=== PATIENT | female | born 1950 | race Caucasian/White ===

== ENCOUNTER 2017-04-29 10:39 | Emergency (ER) | payer MEDICARE, SELFPAY ==
[2017-04-29 10:41] VITALS: BP 155/86; PULSE 102; RESP 16; TEMP 36.6; O2SAT 98; BMI 35.4
--- NOTE | 2017-04-29 11:13 | RAD_ITS ---
STUDY: X-RAY CHEST REASON FOR EXAM: Female, 67 years old. Cough. Mental status change. TECHNIQUE: Single AP portable view of the chest. COMPARISON: Comparison is made with prior study dated August 19, 2015. FINDINGS: The lungs are clear and expanded. Scattered calcified granulomas. There is no demonstrated pleural abnormality. Normal size heart. Normal mediastinum and jay. Normal visualized pulmonary arteries. Normal visualized aortic arch and descending thoracic aorta. Normal visualized thoracic spine. Normal visualized ribs, clavicles, and shoulders. There is no demonstrated abnormality of the visualized soft tissue structures of the upper abdomen. RAD/Chest 1 View (Portable) IMPRESSION: Normal x-ray examination of the chest. Electronically Signed: Tomasz Johnson MD at 12:04 EST Tel [phone], Service support ,
--- NOTE | 2017-04-29 11:16 | CT_ITS ---
STUDY: CT BRAIN WITHOUT CONTRAST REASON FOR EXAM: Female, 67 years old. Hallucinations. RADIATION DOSAGE (If Supplied By Facility): CTDIvol = ( 44.99 ) mGy, DLP = ( 796.11 ) mGycm TECHNIQUE: Transaxial CT imaging of the brain was performed without administration of intravenous contrast material. Individualized dose optimization techniques were used for this CT. COMPARISON: Comparison is made with prior study dated August 19, 2015. FINDINGS: Normal soft tissue structures. Normal calvarium. There is mild cerebral atrophy with widening of the extra-axial spaces and ventricular dilatation. There are areas of decreased attenuation within the white matter tracts of the supratentorial brain, consistent with microvascular disease changes. Normal basal ganglia and thalami. Normal brainstem. There is mild cerebellar atrophy. There is no intracranial hemorrhage. There are no findings of an acute ischemic infarction. Opacification of the left anterior sphenoid sinus. CT/Brain/Head without Contrast IMPRESSION: Chronic involutional changes of the brain. Electronically Signed: Tomasz Johnson MD at 13:32 EST Tel [phone], Service support ,
--- NOTE | 2017-04-29 11:16 | EKG12_ITS ---
Test Reason : GENERALILLNESS Blood Pressure : / mmHG Vent. Rate : 096 BPM Atrial Rate : 096 BPM P-R Int : 206 ms QRS Dur : 076 ms QT Int : 340 ms P-R-T Axes : 033 012 041 degrees QTc Int : 429 ms Normal sinus rhythm Normal ECG Confirmed by PATRICE MALDONADO, [place] ([id number]), continuity editor REGAN COLEMAN ([id number]) on 05/02/2017 11:24:07 AM Referred By: SEAMUS Confirmed By:[place] IBRAHIM MD
[2017-04-29 11:57] LABS: Absolute Lymphocyte Count 1.63 X10^3/ul (0.83-4.51); Absolute Neutrophil Count 3.4 X10^3/uL (2.0-7.7); Basophil# 0.04 X10^3/uL; Basophil% 0.7 % (0-1); Eosinophil# 0.15 X10^3/uL; Eosinophils% 2.7 % (0-5); Hematocrit 41.2 % (37-47); Hemoglobin 14.3 g/dl (12.0-15.0); Lymphocyte # 1.63 X10^3/ul (4.0); Lymphocyte % 29.4 % (19-41); Mean Corp Hgb Conc 34.7 g/gl (32-36); Mean Corpuscular Hgb 30.6 pg (27.0-32.0); Mean Corpuscular Volume 88.2 fL (81-99); Mean Platelet Vol. 9.1 fl (6.2-12.0); Monocyte# 0.34 X10^3/uL; Monocyte% 6.1 % (0-10); Neutrophil # 3.38 X10^3/uL (2.7-7.7); Neutrophil % 60.9 % (47-70); POSITIVE COUNT NO; POSITIVE DIFFERENTIAL NO; POSITIVE MORPHOLOGY NO; Platelet Count 161 K/mm3 (150-450); RBC Distribution Width CV 13.1 % (11.6-14.6); RBC Distribution Width SD 41.8 fl (35.1-43.9); Red Blood Count 4.67 M/mm3 (4.2-5.4); White Blood Count 5.6 K/mm3 (4.4-11.0)
--- NOTE | 2017-04-29 11:57 | ED.DCSUM_ITS ---
- ER Visit Summary Date of Service: 04/29/17 Chief Complaint: Delusions and auditory hallucinations History of Present Illness: The patient is a [address] Samayoa and Dr. Johnson. She reports that she has been having auditory hallucinations and family reports that she is also been having visual hallucinations for approximately past 1-2 months. Family use examples of the fact that she had placed the house 6 days ago because she thought her daughter was being held captive upstairs. She sees her son who lives in [place] in the house. Daughter reports that she is also been going to neighbor's house and threatening them because of this she is being evicted. He has had this previously and was admitted to [facility] [place] approximately 1 year ago. She is placed on Seroquel which she does not take. On review of systems patient complains of a cough productive white sputum for the past month. She denies any fever chills, chest pain, shortness of breath. She wrote does report that she has dysuria on and off. Physical Examination: Vitals: Stable. Afebrile. General: Well-nourished and well-developed. Head: Normocephalic atraumatic. Neck: Supple, no lymphadenopathy. No JVD. Nontender. Cardiovascular: Regular rate and rhythm. No murmurs. Respiratory: No respiratory distress. Clear to auscultation bilaterally. Abdominal: Soft, nontender, nondistended, normal bowel sounds. No guarding, rebound, or peritoneal signs. Back: Nontender. Extremities: Nontender, no edema. Skin: Normal color, no rash. Neurologic: Alert and oriented ?3. Cranial nerves II through XII are intact. Normal strength and sensation. Mental status exam: Patient appears their stated age. Good posture and grooming. Good eye contact. Normal rate, volume, and latency of speech. No Anne-Marie or homicidal ideation. Flow of thought is logical. Insight and judgment is poor. Test Results: EEG is sinus at 96 with no acute changes. CBC is normal. Chem-7 is more for glucose of 246 and creatinine 1.04. TSH is 0.56. Alcohol level is negative. Tox screen is negative. UA has 10-25 white blood cells, 5-10 epithelial cells, and rare bacteria. CT brain shows chronic changes. Emergency Department Course and Treatment: She was treated the dose of Macrobid p.o. Her UTI is questionable at best. This is not the source of her auditory and visual hallucinations. She will be seen by the counseling center for consultation. Treatment Plan: I feel the patient requires transfer to a geriatric psych facility. Disposition: Pending Impression: 1. Auditory/visual hallucinations. 2. Delusions. 3. UTI. This note was generated with [employer] dictation software. It may contain incorrect words, spelling, and punctuation that were not noted in review of the chart prior to signing ED Disposition - Plan for ED Patient: Chief Complaint: General Illness Referrals: Jules Samayoa MD [Primary Care Provider] -
[2017-04-29 12:24] LABS: Anion Gap 9 (5-15); BUN 18 mg/dL (7-18); BUN/Creat Ratio 17.3 RATIO (10-20); Calcium,Total 9.2 mg/dL (8.5-10.1); Chloride 103 mmol/L (98-107); Creatinine, Serum 1.04 mg/dL (0.55-1.02); EST Glomerular Filtration Rate 56 mL/min (>60); Est Glom Filt Rate - Afr Amer 68 mL/min (>60); Estimated Creatinine Clearance 43.42 ml/min; Glucose 246 mg/dL (70-110); Potassium 4.2 mmol/L (3.5-5.1); Sodium Level 137 mmol/L (136-145); Thyroid Stim Hormone (TSH) 0.86 uIU/mL (0.358-3.74)
[2017-04-29 12:36] LABS: Mucous, Urine 0 SEEN /hpf (<or=2+); Red Blood Cells-Urine 0 SEEN /hpf (0-5)
[2017-04-29 12:57] LABS: Amphetamine Urine VISTA NEGATIVE (<1000 ng/mL); Barbiturate Urine VISTA NEGATIVE (< 200 ng/mL); Benzodiazepine Urine VISTA NEGATIVE (< 200 ng/mL); Cocaine Urine VISTA NEGATIVE (< 300 ng/mL); Ecstacy Urine VISTA NEGATIVE (< 500 ng/mL); Methadone Urine VISTA NEGATIVE (< 300 ng/mL); PCP Urine VISTA NEGATIVE (< 25 ng/mL); THC Urine VISTA NEGATIVE (< 50 ng/mL); Vista UDS pH Range 5
[2017-04-29 13:04] LABS: Color, Urine Yellow (Yellow); Glucose, Dipstick 250 mg/dl (Normal); Ketone-Dipstick Negative (Negative); Leukocyte Esterase-Dipstick 500 /ul (Negative); Nitrite-Dipstick Negative (Negative); Occult Blood-Urine Negative /ul (Negative); Protein-Dipstick 30 mg/dl (Negative); Specific Gravity, Urine 1.015 (1.002-1.030); Urine Bilirubin Dipstick Negative (Negative); Urine Clarity Clear (Clear); Urine Urobilinogen Normal (Normal)
[2017-04-29 13:10] LABS: Renal Epithelial Cells 0-5 SEEN /hpf (0-5); Squamous Epithelial Cells - UA 5-10 SEEN /hpf (5-10); White Blood Cells 10-25 SEEN /hpf (0-5)
[2017-04-29 13:11] LABS: Bacteria RARE /hpf (None Seen)
[2017-04-29 13:21] LABS: Bedside Glucose 224 mg/dL (70-110)
[2017-04-29 13:22] VITALS: BP 124/78; PULSE 87; RESP 16; O2SAT 97
--- NOTE | 2017-04-29 13:47 | ED.RN ---
CONTACTED [facility] @[id number], THEY WILL SEND OUT A PAGE
[2017-04-29] MEDS: Nitrofurantoin Macrocrystals 100 MG Capsule PO (13:54)
--- NOTE | 2017-04-29 17:39 | ED.RN ---
pt requesting novolog with his meal tonight. home meds requested with Dr. Reddy, orders placed.
[2017-04-29 17:41] LABS: Bedside Glucose 221 mg/dL (70-110)
[2017-04-29 18:34] VITALS: BP 140/78; PULSE 80; RESP 18; O2SAT 98
[2017-04-29] MEDS: Pramipexole Di-HCl 0.5 MG Tablet PO (20:11)
[2017-04-29] MEDS: levETIRAcetam 750 MG Tablet PO (20:11)
[2017-04-29] MEDS: Gabapentin 400 MG Capsule 800 MG PO (20:11)
== END 2017-04-29 22:02 | disposition short-term general hospital (02) ==
PROVIDERS: Emergency Provider Emergency Medicine; Family Provider Internal Medicine; PCP Internal Medicine
DX: F22 Delusional disorders (principal); N39.0 Urinary tract infection, site not specified; E11.9 Type 2 diabetes mellitus without complications; Z79.4 Long term (current) use of insulin; F32.9 Major depressive disorder, single episode, unspecified; G40.909 Epilepsy, unspecified, not intractable, without status epilepticus; Z91.14 Patient's other noncompliance with medication regimen; Z79.899 Other long term (current) drug therapy
CPT/HCPCS: 70450; 71045; 80048; 80307; 80320; 81001; 82962; 84443; 85025; 93005; 99281; A4216; G0480

== ENCOUNTER 2017-05-13 13:37 | Emergency (ER) | payer MEDICARE, SELFPAY ==
[2017-05-13 13:37] VITALS: BP 159/97; PULSE 110; RESP 16; TEMP 36.4; O2SAT 98; BMI 37.8
--- NOTE | 2017-05-13 13:47 | CT_ITS ---
STUDY: CT CERVICAL SPINE WITHOUT CONTRAST REASON FOR EXAM: Female, 67 years old. Head injury following a fall. RADIATION DOSAGE (If Supplied By Facility): CTDIvol = ( 35.58 ) mGy, DLP = ( 668.51 ) mGycm TECHNIQUE: High resolution transaxial imaging was performed without contrast material. Sagittal and coronal images were reconstructed. Individualized dose optimization techniques were used for this CT. COMPARISON: None FINDINGS: Normal craniovertebral junction. Normal anterior atlantoaxial articulation. Normal odontoid process. Normal cervical lordosis. Normal vertebral bodies and posterior osseous elements. C2-3: Normal endplates. Normal disc height and morphology. Normal central canal and intervertebral neuroforamina. C3-4: Mild anterior spondylosis. C4-5: Mild degree of disc space narrowing and anterior spondylosis. C5-6: Mild degree of disc space narrowing and anterior spondylosis. C6-7: Normal endplates. Normal disc height and morphology. Normal central canal and intervertebral neuroforamina. C7-T1: Normal endplates. Normal disc height and morphology. Normal central canal and intervertebral neuroforamina. Normal visualized soft tissue structures. CT/Spine Cervical without Contras IMPRESSION: Multilevel degenerative changes, as described above. Electronically Signed: Tomasz Johnson MD at 14:45 EST Tel [phone], Service support ,
--- NOTE | 2017-05-13 13:47 | CT_ITS ---
STUDY: CT BRAIN WITHOUT CONTRAST REASON FOR EXAM: Female, 67 years old. An injury following a fall. RADIATION DOSAGE (If Supplied By Facility): CTDIvol = ( 44.99 ) mGy, DLP = ( 745.49 ) mGycm TECHNIQUE: Transaxial CT imaging of the brain was performed without administration of intravenous contrast material. Individualized dose optimization techniques were used for this CT. COMPARISON: Comparison is made with prior examination dated April 29, 2017. FINDINGS: Normal soft tissue structures. Normal calvarium. There is mild cerebral atrophy with widening of the extra-axial spaces and ventricular dilatation. There are areas of decreased attenuation within the white matter tracts of the supratentorial brain, consistent with microvascular disease changes. Normal basal ganglia and thalami. Normal brainstem. Normal cerebellum. There is no intracranial hemorrhage. There are no findings of an acute ischemic infarction. Partial opacification of the left sphenoid sinus. CT/Brain/Head without Contrast IMPRESSION: Chronic involutional changes of the brain. Electronically Signed: Tomasz Johnson MD at 14:46 EST Tel [phone], Service support ,
--- NOTE | 2017-05-13 13:51 | ED.DCSUM_ITS ---
- ER Visit Summary Date of Service: 05/13/17 Chief Complaint: Fall History of Present Illness: The patient is a 67 F who presents after a fall. She slipped on the ice today. She did hit her head. She can planes of right- sided neck pain as well as head pain. No LOC. She has pain in the bilateral legs, which she states is more of restless legs. Physical Examination: Vital signs reviewed. HEENT exam unremarkable. His right -sided cervical tenderness to palpation. Heart is regular rate and rhythm without murmurs. Lungs are clear to auscultation. Abdomen is soft and nontender. Extremities reveal no edema. Both of her legs are tender diffusely. No signs of trauma or ecchymosis. Skin exam normal. Neurologic exam normal. Test Results: Cervical spine CAT scan and CT scan of the head revealed no acute findings. Emergency Department Course and Treatment: Patient has a cervical strain from the fall. No evidence of any head injury. She will take Tylenol and ice at home. She will follow-up with her primary care physician Treatment Plan: [] Disposition: Discharge Impression: Closed head injury, cervical strain This note was generated with [employer] dictation software. It may contain incorrect words, spelling, and punctuation that were not noted in review of the chart prior to signing ED Disposition - Plan for ED Patient: Chief Complaint: Fall Referrals: Jules Samayoa MD [Primary Care Provider] -
--- NOTE | 2017-05-13 14:52 | ED.DEP ---
ED Disposition - Plan for ED Patient: Disposition: Home or Assisted Living Chief Complaint: Fall Instructions: ED Mechanical Fall Referrals: Jules Samayoa MD [Primary Care Provider] -
[2017-05-13 14:57] VITALS: BP 145/70; PULSE 98; RESP 14; O2SAT 98
== END 2017-05-13 15:01 | disposition home or self-care (01) ==
PROVIDERS: Emergency Provider Emergency Medicine; Family Provider Internal Medicine; PCP Internal Medicine
DX: S09.90XA Unspecified injury of head, initial encounter (principal); S16.1XXA Strain of muscle, fascia and tendon at neck level, initial encounter; W00.0XXA Fall on same level due to ice and snow, initial encounter; Y93.9 Activity, unspecified; Y92.9 Unspecified place or not applicable; G40.909 Epilepsy, unspecified, not intractable, without status epilepticus; Z79.899 Other long term (current) drug therapy
CPT/HCPCS: 70450; 72125; 99282

== ENCOUNTER 2017-05-22 12:06 | Inpatient (IN) | payer MEDICARE, SELFPAY ==
[2017-05-22] VITALS (8 sets, daily range): BP systolic 87–109; BP diastolic 43–70; PULSE 90–108; RESP 16–18; TEMP 36–37.2; O2SAT 95–98; BMI 40.0; BMI 45.9
--- NOTE | 2017-05-22 12:17 | ED.RN ---
pt having visual hallucinations regarding family sitting in room currently telling lies. only people present in room are this rn and pt
--- NOTE | 2017-05-22 12:32 | RAD_ITS ---
STUDY: X-RAY - LEFT ANKLE REASON FOR EXAM: Pain, fall. TECHNIQUE: 2 view(s) of the ankle. COMPARISON: None. FINDINGS: There is an angulated fracture of the distal fibular diaphysis and a fracture of the medial malleolus. There is anterior and lateral dislocation of the tibiotalar articulation. Normal visualized talus. There is a plantar calcaneal enthesophyte. The visualized subtalar, talonavicular, calcaneocuboid and tarsal articulations are normal. The soft tissue structures are unremarkable. RAD/Ankle 2 Views IMPRESSION: Left ankle fracture/dislocation. Electronically Signed: Amol Aviles MD at 13:16 EST Tel , Service support ,
--- NOTE | 2017-05-22 12:33 | ED.VISSUMM ---
- ER Visit Summary Date of Service: 05/22/17 Chief Complaint: Fall with left ankle pain and deformity History of Present Illness: The patient is a 67 F history of insulin-dependent diabetes and seizure disorder. Patient states there was someone ringing her doorbell she went to get it tripped or slipped and fell injuring her left ankle. She was brought in by squad. There is a air splint on her left ankle with a deformity. She denies other injuries. She was not knocked out. She denies being on blood thinners. She does not believe she is ever had surgery on her left ankle before. She denies any left hip or left knee pain. Physical Examination: Older female no acute distress. Vital signs are stable afebrile. HEENT exam pupils round reactive light. No signs of trauma to her scalp or face. No hematomas. C-spine nontender. Normal range of motion to her neck. No lymphadenopathy. Lungs clear to auscultation bilaterally. Heart regular rhythm rate about 110 no murmur. Chest wall nontender. Abdomen soft nontender. No peritoneal signs. Normal bowel sounds. Pelvic girdle intact. No shortening or external rotation no obvious signs of hip fractures. Right lower extremity is nontender to the right hip, femur, knee, lower leg ankle and foot. The right foot is neurovascular intact with normal range of motion. The left lower leg she is in air splint. She is obvious deformity of the left ankle is obviously broken. She does appear to have a DP pulse. He is able to wiggle her toes. Has normal touch sensation. Skin appears to be intact. Left hip and knee are nontender without deformity. Neurologically she is awake and alert without focal deficits. Test Results: Left ankle x-ray 3 views there is a bimalleolar ankle fracture with dislocation. Emergency Department Course and Treatment: Patient be treated with IV morphine and Zofran. A left ankle x-ray will be obtained. Treatment Plan: Left ankle fracture dislocation was manually reduced by myself. A short leg posterior splint with sugar tong support was placed by myself and nursing staff. Patient tolerated the procedure exceedingly well. And a repeat post reduction film will be obtained. Disposition: I spoke with Dr. Clif Moore orthopedics. He will be happy to be consult on the patient. Depending on the amount of swelling she develops will determine when he can do surgery on the fracture dislocation of the ankle. Currently she has been splinted by the ER. She is being iced and elevated. I did discuss all this with the patient. I will speak to the hospitalist about admission. Impression: Acute fall Acute left ankle bimalleolar fracture and dislocation Fracture and dislocation reduction done manually by ER physician Short leg posterior splint with sugar tong medial lateral support placed by ER physician. This note was generated with [employer] dictation software. It may contain incorrect words, spelling, and punctuation that were not noted in review of the chart prior to signing ED Disposition - Plan for ED Patient: Chief Complaint: Lower Extremity Injury Referrals: Jules Samayoa MD [Primary Care Provider] -
[2017-05-22] MEDS: Ondansetron 4 MG/2 ML Vial IV (13:17)
[2017-05-22 14:02] LABS: Absolute Lymphocyte Count 1.96 X10^3/ul (0.83-4.51); Basophil# 0.03 X10^3/uL; Basophil% 0.6 % (0-1); Eosinophil# 0.13 X10^3/uL; Eosinophils% 2.4 % (0-5); Hematocrit 35.9 % (37-47); Lymphocyte # 1.96 X10^3/ul (4.0); Lymphocyte % 36.2 % (19-41); Mean Corp Hgb Conc 33.4 g/gl (32-36); Mean Corpuscular Hgb 29.8 pg (27.0-32.0); Mean Corpuscular Volume 89.1 fL (81-99); Monocyte# 0.34 X10^3/uL; Monocyte% 6.3 % (0-10); Neutrophil # 2.95 X10^3/uL (2.7-7.7); Neutrophil % 54.5 % (47-70); Platelet Count 117 K/mm3 (150-450); RBC Distribution Width SD 42.3 fl (35.1-43.9); Red Blood Count 4.03 M/mm3 (4.2-5.4); White Blood Count 5.4 K/mm3 (4.4-11.0)
[2017-05-22 14:08] LABS: POSITIVE COUNT NO; POSITIVE DIFFERENTIAL NO; POSITIVE MORPHOLOGY NO
[2017-05-22 14:10] LABS: Anion Gap 8 (5-15); BUN 17 mg/dL (7-18); BUN/Creat Ratio 17.4 RATIO (10-20); Calcium,Total 7.8 mg/dL (8.5-10.1); Chloride 109 mmol/L (98-107); Creatinine, Serum 0.98 mg/dL (0.55-1.02); EST Glomerular Filtration Rate 60 mL/min (>60); Est Glom Filt Rate - Afr Amer 73 mL/min (>60); Estimated Creatinine Clearance 46.08 ml/min; Glucose 320 mg/dL (74-106); Potassium 3.9 mmol/L (3.5-5.1); Sodium Level 142 mmol/L (136-145)
[2017-05-22 14:27] LABS: Prothrombin Time (Protime)PT. 12.7 SECONDS (11.7-14.9)
--- NOTE | 2017-05-22 14:28 | NURSING ---
MED SURG TERELETSKY FALL, LEFT ANKLE BIMALLEOLAR FX AND DISLOCATION
--- NOTE | 2017-05-22 15:25 | RAD_ITS ---
STUDY: X-RAY - LEFT ANKLE REASON FOR EXAM: Post reduction fracture dislocation. TECHNIQUE: 2 view(s) of the ankle. COMPARISON: Prereduction radiographs the same day. FINDINGS: There is lateral displacement of the distal fibular fracture by a cortical bone width. There is reduction of the medial malleolar fracture. There is widening of the ankle mortise. Normal visualized talus. There is a plantar calcaneal enthesophyte. The visualized subtalar, talonavicular, calcaneocuboid and tarsal articulations are normal. The radiographs were obtained through a cast. RAD/Ankle 2 Views IMPRESSION: Status post reduction fracture dislocation of the left ankle. Electronically Signed: Amol Aviles MD at 16:01 EST Tel , Service support ,
--- NOTE | 2017-05-22 15:44 | NURSING ---
MED SURG LEFT ANKLE FX AND DISLOCATION PHILLY
[2017-05-22 18:16] LABS: Bedside Glucose 240 mg/dL (70-110)
[2017-05-22] MEDS: Gabapentin 800 MG Tablet PO (18:23)
--- NOTE | 2017-05-22 20:24 | PCM.HP.STD ---
Problem List (1) Left ankle pain Status: Acute Qualifiers: Chronicity: acute Qualified Code(s): M25.572 - Pain in left ankle and joints of left foot History of Present Illness Date of Admission: 05/22/17 Chief Complaint: Left ankle pain The patient is a 67 year old F in the emergency room at [facility] after sustaining a fall at home when she was walking toward her door to check on a noise. Patient was unable to ambulate after the fall due to severe left ankle pain. She denied any syncope. Evaluation in the emergency room included x-rays of the left ankle which showed a fracture of the distal left tibia and fibula. The left ankle is also dislocated. Lab was obtained on the patient, lab was remarkable for a glucose of 320. Patient's left ankle was reduced by the emergency room physician and orthopedic surgery was contacted and due to severe pain and immobility, patient will be admitted to the hospitalist service and evaluated by orthopedic surgery for possible surgery tomorrow Past Medical History Allergies acetaminophen [From Vicodin] Allergy (Verified 05/22/17 12:12) Vomiting cyclobenzaprine HCl [From Flexeril] Allergy (Verified 05/22/17 12:12) Other diphenhydramine HCl [From Benadryl] Allergy (Verified 05/22/17 12:12) Other doxepin Allergy (Verified 05/22/17 12:12) Other hydrocodone bitartrate [From Vicodin] Allergy (Verified 05/22/17 12:12) Vomiting Iodine and Iodide Containing Produc Allergy (Verified 05/22/17 12:12) Other Home Medications: Ambulatory Orders Medication Instructions Recorded Gabapentin [Neurontin] 800 mg PO TIDCM 04/29/17 Insulin Aspart [Novolog] 18 unit SQ 4X/DAY 04/29/17 Insulin Degludec [Tresiba 68 unit SQ QHS 04/29/17 Flextouch U-100] Levetiracetam [Keppra] 750 mg PO BID 04/29/17 Losartan Potassium [Cozaar] 50 mg PO DAILY 04/29/17 Pramipexole Di-HCl [Mirapex] 0.5 mg PO QHS 04/29/17 Quetiapine Fumarate [Seroquel] 300 mg PO QHS 04/29/17 Surgical History: noncontributory Psychiatric History: No pertinent psych hx 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 Lives: Alone Smoking Status: Never smoker Tobacco Use: Non-smoker Alcohol: None Drugs: None - *Family History Maternal History Items: Cancer - Breast cancer Paternal History Items: Asthma Review of Systems Constitutional: Denies: Anorexia, Chills, Fever, Night Sweats, Malaise, Weakness, Weight Change, Fatigue Eyes: Denies: Blurred vision, Cataracts, Conjunctivae Inflammation, Double vision, Drainage HEENT: Denies: Difficulty Hearing, Difficulty Swallowing, Dysphasia, Ear Pain, Eye Pain, Head Aches, Hearing Changes, Nasal bleeding, Nasal Congestion, Post Nasal Drip Cardiovascular: Denies: Chest Pain, Claudication, Chest Pressure, Chest Tightness, Edema, Orthopnea, Palpitations Respiratory: Denies: Cough, Hemoptysis, Pleuritic Pain, Shortness of Breath, Shortness of breath at rest, Shortness of breath upon exertion, Sputum production Gastrointestinal: Denies: Abdominal Pain, Constipation, Diarrhea, Hematemesis, Hematochezia, Nausea, Melena, Vomiting Genitourinary: Denies: Dysuria, Frequency, Hematuria, Hesitancy, Urgency Musculoskeletal: Reports: Joint Pain - Left ankle pain, Joint swelling - Left ankle swelling. Denies: Joint stiffness Skin: Denies: Dryness, Jaundice, Pruritis, Rash Neurological: Denies: Blurred vision, Double vision, Slurred speech, Difficulty swallowing, Focal weakness, Headaches, Incoordination, Numbness, Tingling Psychiatric: Denies: Anxiety, Depression, Homicidal Ideations, Suicidal Ideations Endocrine: Denies: Change in Body Habitus, Heat/ Cold Intolerance, Polydipsia, Polyuria Hematologic/ Lymphatic: Denies: Adenopathy, Anemia, Easy Bruising, Easy Bleeding, Petechiae, Purpura VTE Information - Inpt Only VTE Present on Admission: No VTE Mechan Device Prophylaxis: None VTE Pharm Prophylaxis ordered?: Yes Patient Problems: Active and Suspected Problems Left ankle pain (Acute) - Physical Exam General: Alert, Oriented x3, Cooperative, No apparent distress, Well developed, Well nourished HEENT: Atraumatic, PERRLA, EOMI, Normocephalic Oral: Moist Mucosa Neck: Supple, No JVD, Negative Carotid Bruits, No Nuchal Rigidity, Trachea Midline, Thyroid Normal Size and Texture Lungs: Clear to auscultation, Normal air movement, No rhonchi, No wheeze, No rales Cardiovascular: Regular rate, Regular Rhythm, Normal S1, Normal S2, No murmurs, No Ectopic Activity, PMI Normal, No rub noted, No Gallop Abdomen: Bowel Sounds Present, Soft, Non Tender, Non-Distended, Obese, No hernias noted Extremities: No clubbing, No cyanosis, Capillary Refill Less than 3 Seconds, Edema - Generalized edema of the left lower leg above the patient's splint, - - Splint is present over the left lower leg Skin: No rashes, No breakdown Musculoskeletal: No Tenderness to Palpation of Joints or Extremities Neurological: Cranial nerves II-XII grossly intact, Neuro grossly intact, Sensory exam intact to light touch and pain Psych/Mental Status: Normal Affect, Appropriate, Alert and oriented to time, place, person, mood and affect Vital Signs Temp Pulse Resp BP Pulse Ox 96.8 F L 95 18 104/43 L 96 05/22/17 16:52 05/22/17 16:52 05/22/17 16:52 05/22/17 16:52 05/22/17 16:52 Oxygen Delivery Method Room Air Weight: 119.6 kg Body Mass Index (BMI) 45.9 Intake and Output for Last 24 Hours 05/20/17 05/21/17 05/22/17 23:59 23:59 23:59 Intake Total 741 / 741 Output Total 1000 / 1000 Balance -259 / -259 POC Glucose 05/22/17 18:00 POC Glucose 240 H Assessment/Plan Active and Suspected Problems Left ankle pain (Acute) #1 bimalleolar fracture of the left ankle patient will be admitted to [facility], she will be seen in consultation by orthopedic surgery, OT and PT will see the patient #2 type 2 diabetes-most probably under poor control, patient's insulin will be readjusted in the hospital, sliding scale insulin with fingerstick blood sugars will be utilized #3 seizure disorder-patient will remain on her current medication #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
--- NOTE | 2017-05-22 20:35 | HP.PCM_ITS ---
Problem List (1) Left ankle pain Status: Acute Qualifiers: Chronicity: acute Qualified Code(s): M25.572 - Pain in left ankle and joints of left foot History of Present Illness Date of Admission: 05/22/17 Chief Complaint: Left ankle pain The patient is a 67 year old F in the emergency room at [facility] after sustaining a fall at home when she was walking toward her door to check on a noise. Patient was unable to ambulate after the fall due to severe left ankle pain. She denied any syncope. Evaluation in the emergency room included x-rays of the left ankle which showed a fracture of the distal left tibia and fibula. The left ankle is also dislocated. Lab was obtained on the patient, lab was remarkable for a glucose of 320. Patient's left ankle was reduced by the emergency room physician and orthopedic surgery was contacted and due to severe pain and immobility, patient will be admitted to the hospitalist service and evaluated by orthopedic surgery for possible surgery tomorrow Past Medical History Allergies acetaminophen [From Vicodin] Allergy (Verified 05/22/17 12:12) Vomiting cyclobenzaprine HCl [From Flexeril] Allergy (Verified 05/22/17 12:12) Other diphenhydramine HCl [From Benadryl] Allergy (Verified 05/22/17 12:12) Other doxepin Allergy (Verified 05/22/17 12:12) Other hydrocodone bitartrate [From Vicodin] Allergy (Verified 05/22/17 12:12) Vomiting Iodine and Iodide Containing Produc Allergy (Verified 05/22/17 12:12) Other Home Medications: Ambulatory Orders Medication Instructions Recorded Gabapentin [Neurontin] 800 mg PO TIDCM 04/29/17 Insulin Aspart [Novolog] 18 unit SQ 4X/DAY 04/29/17 Insulin Degludec [Tresiba 68 unit SQ QHS 04/29/17 Flextouch U-100] Levetiracetam [Keppra] 750 mg PO BID 04/29/17 Losartan Potassium [Cozaar] 50 mg PO DAILY 04/29/17 Pramipexole Di-HCl [Mirapex] 0.5 mg PO QHS 04/29/17 Quetiapine Fumarate [Seroquel] 300 mg PO QHS 04/29/17 Surgical History: noncontributory Psychiatric History: No pertinent psych hx RADIOLOGICAL HEALTH SPECIALIST History: No pertinent RADIOLOGICAL HEALTH SPECIALIST history Lives: Alone Smoking Status: Never smoker Tobacco Use: Non-smoker Alcohol: None Drugs: None - *Family History Maternal History Items: Cancer - Breast cancer Paternal History Items: Asthma Review of Systems Constitutional: Denies: Anorexia, Chills, Fever, Night Sweats, Malaise, Weakness , Weight Change, Fatigue Eyes: Denies: Blurred vision, Cataracts, Conjunctivae Inflammation, Double vision, Drainage HEENT: Denies: Difficulty Hearing, Difficulty Swallowing, Dysphasia, Ear Pain, Eye Pain, Head Aches, Hearing Changes, Nasal bleeding, Nasal Congestion, Post Nasal Drip Cardiovascular: Denies: Chest Pain, Claudication, Chest Pressure, Chest Tightness, Edema, Orthopnea, Palpitations Respiratory: Denies: Cough, Hemoptysis, Pleuritic Pain, Shortness of Breath, Shortness of breath at rest, Shortness of breath upon exertion, Sputum production Gastrointestinal: Denies: Abdominal Pain, Constipation, Diarrhea, Hematemesis, Hematochezia, Nausea, Melena, Vomiting Genitourinary: Denies: Dysuria, Frequency, Hematuria, Hesitancy, Urgency Musculoskeletal: Reports: Joint Pain - Left ankle pain, Joint swelling - Left ankle swelling. Denies: Joint stiffness Skin: Denies: Dryness, Jaundice, Pruritis, Rash Neurological: Denies: Blurred vision, Double vision, Slurred speech, Difficulty swallowing, Focal weakness, Headaches, Incoordination, Numbness, Tingling Psychiatric: Denies: Anxiety, Depression, Homicidal Ideations, Suicidal Ideations Endocrine: Denies: Change in Body Habitus, Heat/ Cold Intolerance, Polydipsia, Polyuria Hematologic/ Lymphatic: Denies: Adenopathy, Anemia, Easy Bruising, Easy Bleeding , Petechiae, Purpura VTE Information - Inpt Only VTE Present on Admission: No VTE Mechan Device Prophylaxis: None VTE Pharm Prophylaxis ordered?: Yes Patient Problems: Active and Suspected Problems Left ankle pain (Acute) - Physical Exam General: Alert, Oriented x3, Cooperative, No apparent distress, Well developed, Well nourished HEENT: Atraumatic, PERRLA, EOMI, Normocephalic Oral: Moist Mucosa Neck: Supple, No JVD, Negative Carotid Bruits, No Nuchal Rigidity, Trachea Midline, Thyroid Normal Size and Texture Lungs: Clear to auscultation, Normal air movement, No rhonchi, No wheeze, No rales Cardiovascular: Regular rate, Regular Rhythm, Normal S1, Normal S2, No murmurs, No Ectopic Activity, PMI Normal, No rub noted, No Gallop Abdomen: Bowel Sounds Present, Soft, Non Tender, Non-Distended, Obese, No hernias noted Extremities: No clubbing, No cyanosis, Capillary Refill Less than 3 Seconds, Edema - Generalized edema of the left lower leg above the patient's splint, - - Splint is present over the left lower leg Skin: No rashes, No breakdown Musculoskeletal: No Tenderness to Palpation of Joints or Extremities Neurological: Cranial nerves II-XII grossly intact, Neuro grossly intact, Sensory exam intact to light touch and pain Psych/Mental Status: Normal Affect, Appropriate, Alert and oriented to time, place, person, mood and affect Vital Signs Temp Pulse Resp BP Pulse Ox 96.8 F L 95 18 104/43 L 96 05/22/17 16:52 05/22/17 16:52 05/22/17 16:52 05/22/17 16:52 05/22/17 16:52 Oxygen Delivery Method Room Air Weight: 119.6 kg Body Mass Index (BMI) 45.9 Intake and Output for Last 24 Hours 05/20/17 05/21/17 05/22/17 23:59 23:59 23:59 Intake Total 741 / 741 Output Total 1000 / 1000 Balance -259 / -259 POC Glucose 05/22/17 18:00 POC Glucose 240 H Assessment/Plan Active and Suspected Problems Left ankle pain (Acute) #1 bimalleolar fracture of the left ankle patient will be admitted to [facility] , she will be seen in consultation by orthopedic surgery, OT and PT will see the patient #2 type 2 diabetes-most probably under poor control, patient's insulin will be readjusted in the hospital, sliding scale insulin with fingerstick blood sugars will be utilized #3 seizure disorder-patient will remain on her current medication #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
[2017-05-22] MEDS: Pramipexole Di-HCl 0.5 MG Tablet PO (20:37)
[2017-05-22] MEDS: levETIRAcetam 750 MG Tablet PO (20:37)
[2017-05-22] MEDS: Heparin Injection 5,000 UNITS/ML Syringe 5000 UNITS SC (20:38)
[2017-05-22 23:06] LABS: Bedside Glucose 224 mg/dL (70-110)
[2017-05-23 02:38] VITALS: BP 130/74; PULSE 96; RESP 18; TEMP 36.7; O2SAT 99
[2017-05-23] MEDS: oxyCODONE 5 MG Tablet PO ×3 (02:42→21:30)
[2017-05-23] MEDS: 0.9% NaCl Peripheral Flush Adult/Peds IV ×3 (04:16→22:21)
[2017-05-23 07:33] VITALS: BP 115/59; PULSE 109; RESP 17; TEMP 37.2; O2SAT 94
[2017-05-23 07:40] LABS: Bedside Glucose 213 mg/dL (70-110)
[2017-05-23 07:46] VITALS: PULSE 109
[2017-05-23] MEDS: Losartan Potassium 50 MG Tablet PO (07:53)
[2017-05-23] MEDS: Gabapentin 800 MG Tablet PO ×3 (07:53→17:07)
[2017-05-23] MEDS: Heparin Injection 5,000 UNITS/ML Syringe 5000 UNITS SC ×2 (09:21→20:24)
[2017-05-23] MEDS: levETIRAcetam 750 MG Tablet PO ×2 (09:21→20:24)
--- NOTE | 2017-05-23 12:03 | PCM.PN.HOSP ---
Patient Problems: Active and Suspected Problems Left ankle pain (Acute) Subjective: Still with a lot of pain in her left ankle after the fracture. No other complaints. Vitals/I&O's: Vital Signs Temp Pulse Resp BP Pulse Ox 37.2 C 109 H 17 115/59 L 94 05/23/17 07:33 05/23/17 07:46 05/23/17 07:33 05/23/17 07:33 05/23/17 07:33 Oxygen Delivery Method Room Air Weight: 119.6 kg Body Mass Index (BMI) 45.9 Intake and Output for Last 24 Hours 05/21/17 05/22/17 05/23/17 23:59 23:59 23:59 Intake Total 741 / 741 Output Total 1000 / 1000 Balance -259 / -259 General: Alert, Cooperative, No apparent distress HEENT: Atraumatic, Normocephalic Neck: No Nodes, Thyroid Normal Size and Texture Lungs: Clear to auscultation, Normal air movement, No rhonchi, No wheeze Cardiovascular: Regular rate, Regular Rhythm, Normal S1, Normal S2, No murmurs Abdomen: Bowel Sounds Present, Soft, Non Tender, Non-Distended, No Hepato-splenomegaly Extremities: No edema, - - Casted. Neurological: - - Full to move the left toes. Psych/Mental Status: Normal Affect, Appropriate Laboratory Results 05/22/17 18:00: POC Glucose 240 H 05/22/17 21:58: POC Glucose 224 H 05/23/17 07:37: POC Glucose 213 H Current Medications Dextrose (D50w Syringe) 0 gm IV X1 PRN; Protocol PRN Reason: Hypoglycemia Gabapentin (Neurontin) 800 mg PO TIDCM [facility] Last Admin: 05/23/17 07:53 Dose: 800 mg Glucagon () 1 mg IM .X1 PRN PRN Reason: Hypoglycemia Heparin Sodium (Porcine) () 5,000 units SC BID [facility] Last Admin: 05/23/17 09:21 Dose: 5,000 units Insulin Aspart (Novolog Flexpen (Bkc)) 20 units SC TIDAC [facility] Last Admin: 05/23/17 07:44 Dose: Not Given Insulin Aspart (Novolog Flexpen (Bkc)) 0 units SC ACHS [facility] PRN Reason: Protocol Last Admin: 05/23/17 07:44 Dose: Not Given Insulin Detemir (Levemir (Bkc)) 40 units SC QHS [facility] Last Admin: 05/22/17 22:00 Dose: 40 u Levetiracetam (Keppra) 750 mg PO BID [facility] Last Admin: 05/23/17 09:21 Dose: 750 mg Losartan Potassium (Cozaar) 50 mg PO DAILY [facility] Last Admin: 05/23/17 07:53 Dose: 50 mg Morphine Sulfate (Morphine) 2 - 4 mg IV Q4H PRN PRN PRN Reason: MOD-SEVERE PAIN (4-10/10) Last Admin: 05/23/17 04:16 Dose: 4 mg Morphine Sulfate (Morphine) 2 - 4 mg IV Q4H PRN PRN PRN Reason: MOD-SEVERE PAIN (4-10/10) Nutritional Formula (Lactose Free) (Glucerna Shake) 120 ml PO TIDCM [facility] Last Admin: 05/23/17 07:53 Dose: Not Given Nystatin (Mycostatin Powder) 1 applic TOPICAL BID [facility] PRN Reason: Protocol Ondansetron HCl (Zofran) 4 mg IV Q8H PRN PRN PRN Reason: NAUSEA Oxycodone HCl (Oxyir) 5 - 10 mg PO Q4H PRN PRN PRN Reason: MOD-SEVERE PAIN (4-10/10) Last Admin: 05/23/17 09:30 Dose: 10 mg Pramipexole Dihydrochloride (Mirapex) 0.5 mg PO QHS [facility] Last Admin: 05/22/17 20:37 Dose: 0.5 mg Quetiapine Fumarate (Seroquel) 300 mg PO QHS [facility] Last Admin: 05/22/17 20:38 Dose: Not Given Sodium Chloride () 5 - 30 ml IV UD PRN PRN Reason: SALINE FLUSH Last Admin: 05/23/17 04:16 Dose: 10 ml Assessment/Plan Active and Suspected Problems Left ankle pain (Acute) 1. Bimalleolar left ankle fracture reduced in the emergency room Dr. Moore was contacted by the nursing and he had told nursing that he had told the emergency room that the patient could be sent home and the patient could have surgery as outpatient. There are no plans for surgery during this hospitalization. Nursing states that the patient has been able to ambulate with limitations but able to get herself out of bed on her own accord. She will be discharged. She will receive oxycodone for pain control but also instructed to take Tylenol and ibuprofen as needed. She will follow-up with Dr. Moore as outpatient. Nonweightbearing left lower extremity Given the immobility of her left lower extremity I will put her on Xarelto for DVT prophylaxis. That will need to be held for 24-48 hours prior to any surgery.
--- NOTE | 2017-05-23 12:08 | PN_ITS ---
Patient Problems: Active and Suspected Problems Left ankle pain (Acute) Subjective: Still with a lot of pain in her left ankle after the fracture. No other complaints. Vitals/I&O's: Vital Signs Temp Pulse Resp BP Pulse Ox 37.2 C 109 H 17 115/59 L 94 05/23/17 07:33 05/23/17 07:46 05/23/17 07:33 05/23/17 07:33 05/23/17 07:33 Oxygen Delivery Method Room Air Weight: 119.6 kg Body Mass Index (BMI) 45.9 Intake and Output for Last 24 Hours 05/21/17 05/22/17 05/23/17 23:59 23:59 23:59 Intake Total 741 / 741 Output Total 1000 / 1000 Balance -259 / -259 General: Alert, Cooperative, No apparent distress HEENT: Atraumatic, Normocephalic Neck: No Nodes, Thyroid Normal Size and Texture Lungs: Clear to auscultation, Normal air movement, No rhonchi, No wheeze Cardiovascular: Regular rate, Regular Rhythm, Normal S1, Normal S2, No murmurs Abdomen: Bowel Sounds Present, Soft, Non Tender, Non-Distended, No Hepato- splenomegaly Extremities: No edema, - - Casted. Neurological: - - Full to move the left toes. Psych/Mental Status: Normal Affect, Appropriate Laboratory Results 05/22/17 18:00: POC Glucose 240 H 05/22/17 21:58: POC Glucose 224 H 05/23/17 07:37: POC Glucose 213 H Current Medications Dextrose (D50w Syringe) 0 gm IV X1 PRN; Protocol PRN Reason: Hypoglycemia Gabapentin (Neurontin) 800 mg PO TIDCM [facility] Last Admin: 05/23/17 07:53 Dose: 800 mg Glucagon () 1 mg IM .X1 PRN PRN Reason: Hypoglycemia Heparin Sodium (Porcine) () 5,000 units SC BID [facility] Last Admin: 05/23/17 09:21 Dose: 5,000 units Insulin Aspart (Novolog Flexpen (Bkc)) 20 units SC TIDAC [facility] Last Admin: 05/23/17 07:44 Dose: Not Given Insulin Aspart (Novolog Flexpen (Bkc)) 0 units SC ACHS [facility] PRN Reason: Protocol Last Admin: 05/23/17 07:44 Dose: Not Given Insulin Detemir (Levemir (Bkc)) 40 units SC QHS [facility] Last Admin: 05/22/17 22:00 Dose: 40 u Levetiracetam (Keppra) 750 mg PO BID [facility] Last Admin: 05/23/17 09:21 Dose: 750 mg Losartan Potassium (Cozaar) 50 mg PO DAILY [facility] Last Admin: 05/23/17 07:53 Dose: 50 mg Morphine Sulfate (Morphine) 2 - 4 mg IV Q4H PRN PRN PRN Reason: MOD-SEVERE PAIN (4-10/10) Last Admin: 05/23/17 04:16 Dose: 4 mg Morphine Sulfate (Morphine) 2 - 4 mg IV Q4H PRN PRN PRN Reason: MOD-SEVERE PAIN (4-10/10) Nutritional Formula (Lactose Free) (Glucerna Shake) 120 ml PO TIDCM [facility] Last Admin: 05/23/17 07:53 Dose: Not Given Nystatin (Mycostatin Powder) 1 applic TOPICAL BID [facility] PRN Reason: Protocol Ondansetron HCl (Zofran) 4 mg IV Q8H PRN PRN PRN Reason: NAUSEA Oxycodone HCl (Oxyir) 5 - 10 mg PO Q4H PRN PRN PRN Reason: MOD-SEVERE PAIN (4-10/10) Last Admin: 05/23/17 09:30 Dose: 10 mg Pramipexole Dihydrochloride (Mirapex) 0.5 mg PO QHS [facility] Last Admin: 05/22/17 20:37 Dose: 0.5 mg Quetiapine Fumarate (Seroquel) 300 mg PO QHS [facility] Last Admin: 05/22/17 20:38 Dose: Not Given Sodium Chloride () 5 - 30 ml IV UD PRN PRN Reason: SALINE FLUSH Last Admin: 05/23/17 04:16 Dose: 10 ml Assessment/Plan Active and Suspected Problems Left ankle pain (Acute) 1. Bimalleolar left ankle fracture * reduced in the emergency room * Dr. Moore was contacted by the nursing and he had told nursing that he had told the emergency room that the patient could be sent home and the patient could have surgery as outpatient. There are no plans for surgery during this hospitalization. * Nursing states that the patient has been able to ambulate with limitations but able to get herself out of bed on her own accord. * She will be discharged. She will receive oxycodone for pain control but also instructed to take Tylenol and ibuprofen as needed. * She will follow-up with Dr. Moore as outpatient. * Nonweightbearing left lower extremity * Given the immobility of her left lower extremity I will put her on Xarelto for DVT prophylaxis. That will need to be held for 24-48 hours prior to any surgery.
--- NOTE | 2017-05-23 12:19 | PCM.DC ---
- Discharge Diagnoses Current Active Problems: Current Active and Chronic Problems Left ankle pain (Acute) You will use the following diet at home:: No restrictions Your food should be the consistency of: Regular Your liquids should be the consistency of: Regular/Thin Discharge Activity: May not drive while taking narcotic pain medications., Use Crutches Weight Bearing Status: No weight bearing Keep extremity elevated above heart level: Left Leg Call your doctor if your incision/area has: Increased Pain/ Swelling, Increased Redness Call your doctor if you observe: Fever of 101 or Higher Allergies/Adverse Reactions: Allergies acetaminophen [From Vicodin] Allergy (Verified 05/22/17 12:12) Vomiting cyclobenzaprine HCl [From Flexeril] Allergy (Verified 05/22/17 12:12) Other diphenhydramine HCl [From Benadryl] Allergy (Verified 05/22/17 12:12) Other doxepin Allergy (Verified 05/22/17 12:12) Other hydrocodone bitartrate [From Vicodin] Allergy (Verified 05/22/17 12:12) Vomiting Iodine and Iodide Containing Produc Allergy (Verified 05/22/17 12:12) Other Medications to take at Discharge Gabapentin [Neurontin] 800 mg PO TIDCM 04/29/17 Insulin Aspart [Novolog Vial] 18 unit SQ 4X/DAY 04/29/17 Insulin Degludec [Tresiba Flextouch U-100] 68 unit SQ QHS 04/29/17 Levetiracetam [Keppra] 750 mg PO BID 04/29/17 Losartan Potassium [Cozaar] 50 mg PO DAILY 04/29/17 Pramipexole Di-HCl [Mirapex] 0.5 mg PO QHS 04/29/17 Quetiapine Fumarate [Seroquel] 300 mg PO QHS 04/29/17 Crutch 1 ea MC DAILY #1 ea 05/23/17 Oxycodone [Oxyir] 5 - 10 mg PO Q4H PRN PRN 3 Days #36 tablet 05/23/17 Rivaroxaban [Xarelto] 20 mg PO DAILY #30 tab 05/23/17 The following prescriptions were given: Oxycodone [Oxyir] 5 - 10 mg PO Q4H PRN PRN 3 Days #36 tablet PRN Reason: Mod-Severe Pain (4-01/08) Crutch 1 ea MC DAILY #1 ea Rivaroxaban [Xarelto] 20 mg PO DAILY #30 tab Primary Care Physician: Jules Samayoa MD [Primary Care Provider] - Within 2 Weeks Please Follow Up With: Clif Moore MD - Orthopaedics for ankle fracture When: 1 week Proposed Discharge Date: 05/23/17
--- NOTE | 2017-05-23 12:22 | PCM.DC.SUM ---
Discharge Date and Diagnosis - Problem List Patient Problems: Active and Suspected Problems Closed left ankle fracture (Acute) Left ankle pain (Acute) Date of Admission: 05/22/17 Date of Discharge: 05/23/17 - Primary Discharge Diagnosis Active and Suspected Problems Closed left ankle fracture (Acute) Left ankle pain (Acute) Hospital Course and Treatment Imaging Results: Clinical Impression(s) from Imaging Studies Ankle X-Ray 05/22/17 12:32 IMPRESSION: Left ankle fracture/dislocation. Electronically Signed: Amol Aviles MD at 13:16 EST Tel , Service support , Ankle X-Ray 05/22/17 15:25 IMPRESSION: Status post reduction fracture dislocation of the left ankle. Electronically Signed: Amol Aviles MD at 16:01 EST Tel , Service support , Operations: None Procedures: None Summary of Care Provided: The patient is a 67 year old F sustained a fall at home. Patient sustained a left by malleolar ankle fracture. Bimalleolar left ankle fracture reduced in the emergency room Dr. Moore was contacted by the nursing and he had told nursing that he had told the emergency room that the patient could be sent home and the patient could have surgery as outpatient. There are no plans for surgery during this hospitalization. Nursing states that the patient has been able to ambulate with limitations but able to get herself out of bed on her own accord. She will be discharged. She will receive oxycodone for pain control but also instructed to take Tylenol and ibuprofen as needed. She will follow-up with Dr. Moore as outpatient. Nonweightbearing left lower extremity Given the immobility of her left lower extremity I will put her on Xarelto for DVT prophylaxis. That will need to be held for 24-48 hours prior to any surgery. [] Discharge Diet: No Restrictions Discharge Activity: May not drive while taking narcotic pain medications., Use Crutches Weight Bearing Status: No weight bearing Keep extremity elevated above heart level: Left Leg Call your doctor if your incision/area has: Increased Pain/ Swelling, Increased Redness Call your doctor if you observe: Fever of 101 or Higher Home Medications: Medications to take at Discharge Gabapentin [Neurontin] 800 mg PO TIDCM 04/29/17 Insulin Aspart [Novolog Vial] 18 unit SQ 4X/DAY 04/29/17 Insulin Degludec [Tresiba Flextouch U-100] 68 unit SQ QHS 04/29/17 Levetiracetam [Keppra] 750 mg PO BID 04/29/17 Losartan Potassium [Cozaar] 50 mg PO DAILY 04/29/17 Pramipexole Di-HCl [Mirapex] 0.5 mg PO QHS 04/29/17 Quetiapine Fumarate [Seroquel] 300 mg PO QHS 04/29/17 Crutch 1 ea MC DAILY #1 ea 05/23/17 Oxycodone [Oxyir] 5 - 10 mg PO Q4H PRN PRN 3 Days #36 tablet 05/23/17 Rivaroxaban [Xarelto] 20 mg PO DAILY #30 tab 05/23/17 Following Prescrptions Were Given to Patient: Oxycodone [Oxyir] 5 - 10 mg PO Q4H PRN PRN 3 Days #36 tablet PRN Reason: Mod-Severe Pain (4-10/10) Crutch 1 ea MC DAILY #1 ea Rivaroxaban [Xarelto] 20 mg PO DAILY #30 tab Primary Care Physician: Jules Samayoa MD [Primary Care Provider] - Within 2 Weeks Please Follow Up With: Clif Moore MD - Orthopaedics for ankle fracture When: 1 week Disposition: Home Minutes spent on discharge:: 28 Patient Condition:: Fair Meaningful Use Info Meaningful Use Diagnoses (Choose all that apply): None applicable Code Visit OBSV E&M: 78045 Observation care discharge
--- NOTE | 2017-05-23 12:24 | CASEMGMT ---
Addendum entered by Jeannette Albert 05/23/17 13:13: Pt friend Luis Ramirez here visiting pt. SW met with Luis who is helping plan discharge. Pt to be d/c today. Pt needs a walker and Luis states pt dgt recently had surgery and is using pt walker. SW explained that insurance will not purchase another walker for pt as they have already purchased one. Phone call to [employer] and [employer] and they do not rent walkers. Luis states he will get walker back from pt dgt. Luis also confirms that pt is at baseline for cognition and does confirm that pt has been evicted from her apartment and he and dgt are working on new housing arrangements. Per Luis, pt had an appointment at the counseling center yesterday to meet with psychiatrist for medication management. Pt given information on orthopedic followup appointment. Luis plans to arrange transportation for pt to return home today. Per RN CM referrals have been made to [facility] and [facility]. No further d/c needs at this time. JOSEFINA Trejo Original Note: Social Work Referral received to assist pt with d/c planning. Met with pt in room and introduced self and role of SW. Pt stating that she lives in [facility] by herself and is independent with ADLs and IADLS. Pt states she does not drive and walks to grocery store and to pharmacy. Pt states she has a medical alert, a walker, cane, shower chair, RTS and grab bars by toilet. Pt denies prior need for home health services or SNF. SW attempted to discuss d/c plan with pt. Pt initially is agreeable that she will need SNF prior to return home then changes subject and when redirected to d/c discussion pt says she can return home as SW inquires about ankle fx she again states she knows she needs to go to a SNF. Pt unable to stay on topic or complete thoughts. When asked about dgt, pt states that they do not get along, but then states she has been evicted from her apartment and dgt will take care of her. SW attempted to discuss eviction with pt and pt states she got the eviction notice about a week ago and could provide no further information but that her dgt Nancy will take care of it. Pt also states the name of a friend Luis who is important to her and will help her. Pt informs SW that she does have Medicare and Medicaid and also states that she [facility]. SW asked permission to call dgt. Pt states that dgt is here and SW can talk to her. RN confirms that no family has been in to see pt today. Phone call placed to pt dgt Nancy. No answer and VM is full. Phone call to Neyda in [place]. She states last active Medicaid was in December 2016. SW will continue to follow to assist with d/c planning and contact dgt regarding eviction and d/c plan. JOSEFINA Trejo
--- NOTE | 2017-05-23 12:25 | DS.PCM_ITS ---
Discharge Date and Diagnosis - Problem List Patient Problems: Active and Suspected Problems Closed left ankle fracture (Acute) Left ankle pain (Acute) Date of Admission: 05/22/17 Date of Discharge: 05/23/17 - Primary Discharge Diagnosis Active and Suspected Problems Closed left ankle fracture (Acute) Left ankle pain (Acute) Hospital Course and Treatment Imaging Results: Clinical Impression(s) from Imaging Studies Ankle X-Ray 05/22/17 12:32 IMPRESSION: Left ankle fracture/dislocation. Electronically Signed: Amol Aviles MD at 13:16 EST Tel , Service support , Ankle X-Ray 05/22/17 15:25 IMPRESSION: Status post reduction fracture dislocation of the left ankle. Electronically Signed: Amol Aviles MD at 16:01 EST Tel , Service support , Operations: None Procedures: None Summary of Care Provided: The patient is a 67 year old F sustained a fall at home. Patient sustained a left by malleolar ankle fracture. Bimalleolar left ankle fracture * reduced in the emergency room * Dr. Moore was contacted by the nursing and he had told nursing that he had told the emergency room that the patient could be sent home and the patient could have surgery as outpatient. There are no plans for surgery during this hospitalization. * Nursing states that the patient has been able to ambulate with limitations but able to get herself out of bed on her own accord. * She will be discharged. She will receive oxycodone for pain control but also instructed to take Tylenol and ibuprofen as needed. * She will follow-up with Dr. Moore as outpatient. * Nonweightbearing left lower extremity * Given the immobility of her left lower extremity I will put her on Xarelto for DVT prophylaxis. That will need to be held for 24-48 hours prior to any surgery. [] Discharge Diet: No Restrictions Discharge Activity: May not drive while taking narcotic pain medications., Use Crutches Weight Bearing Status: No weight bearing Keep extremity elevated above heart level: Left Leg Call your doctor if your incision/area has: Increased Pain/ Swelling, Increased Redness Call your doctor if you observe: Fever of 101 or Higher Home Medications: Medications to take at Discharge Gabapentin [Neurontin] 800 mg PO TIDCM 04/29/17 Insulin Aspart [Novolog Vial] 18 unit SQ 4X/DAY 04/29/17 Insulin Degludec [Tresiba Flextouch U-100] 68 unit SQ QHS 04/29/17 Levetiracetam [Keppra] 750 mg PO BID 04/29/17 Losartan Potassium [Cozaar] 50 mg PO DAILY 04/29/17 Pramipexole Di-HCl [Mirapex] 0.5 mg PO QHS 04/29/17 Quetiapine Fumarate [Seroquel] 300 mg PO QHS 04/29/17 Crutch 1 ea MC DAILY #1 ea 05/23/17 Oxycodone [Oxyir] 5 - 10 mg PO Q4H PRN PRN 3 Days #36 tablet 05/23/17 Rivaroxaban [Xarelto] 20 mg PO DAILY #30 tab 05/23/17 Following Prescrptions Were Given to Patient: Oxycodone [Oxyir] 5 - 10 mg PO Q4H PRN PRN 3 Days #36 tablet PRN Reason: Mod-Severe Pain (4-10/10) Crutch 1 ea MC DAILY #1 ea Rivaroxaban [Xarelto] 20 mg PO DAILY #30 tab Primary Care Physician: Jules Samayoa MD [Primary Care Provider] - Within 2 Weeks Please Follow Up With: Clif Moore MD - Orthopaedics for ankle fracture When: 1 week Disposition: Home Minutes spent on discharge:: 28 Patient Condition:: Fair Meaningful Use Info Meaningful Use Diagnoses (Choose all that apply): None applicable Code Visit OBSV E&M: 83722 Observation care discharge
[2017-05-23] MEDS: Nystatin Powder 15gm Bottle 1 APPLIC TOPICAL ×2 (12:36→20:30)
[2017-05-23 12:46] LABS: Bedside Glucose 200 mg/dL (70-110)
[2017-05-23] MEDS: Glucerna Shake 120 ML LIQUID PO ×2 (13:07→17:10)
--- NOTE | 2017-05-23 13:21 | CASEMGMT ---
AKI MERRITT met with patient and discussed home health. Patient would prefer [facility]. AKI MERRITT made referral to [facility] and per Charu, they can accept and will provide PT/OT, SN, and SW. AKI MERRITT arranged follow-up appnt for patient with Dr. Cruz at [facility]. LAYLA Toledo, RN-BC, CCM
--- NOTE | 2017-05-23 13:25 | CASEMGMT ---
RN CM made CCN referral as well.
[2017-05-23 14:17] VITALS: BP 135/74; PULSE 102; RESP 16; TEMP 37.2; O2SAT 99
--- NOTE | 2017-05-23 14:17 | NURSING ---
went to room as heard recyclable materials sorter state patient was on the floor. Into room behind Jorden assist loan and credit manager. Lauren grayson Rn was at pt's bedside and stated patient was found on both knees in front of the computer. Her walker was next to her recliner across the room. pt assisted back to bed. Pt confused and states she thought she heard her daughter. Pt is unable to tell us what she was doing. Denies need for restroom. Pt assisted in bed with leg elevated, c/o leg throbbing and requesting Lauren remove the wrap. Discussed not removing. Aware this is not a new pain in her leg, per pt she did not hurt her leg when she went down to her knees. Primary RN to room and updated on finding. DIscussed w/ primary RN location of patient last she rounded, aware she was in the chair. Noted shower catty and empty daily pill container in catty. However, found 1/4th of a white tablet in bottle of catty. Pt denied taking any medications. Timothy PRABHAKAR notifying physician. fall huddle being preformed. Bedexit on, call light within reach. pt denies all needs at present
--- NOTE | 2017-05-23 15:41 | RAD_ITS ---
STUDY: X-RAY - LEFT ANKLE REASON FOR EXAM: Female, 67 years old. Pain in the ankle after falling. TECHNIQUE: 3 view(s) of the ankle. COMPARISON: Prior left ankle radiographs of May 22, 2017 FINDINGS: The ankle remains in circumferential fiberglass . Recent fracture of the distal tibia through the base of the medial malleolus remains unchanged in alignment. Acute fracture of the distal fibula occurring at the level of the distal tibiofibular ligaments is unchanged from the prior exam. Mild lateral displacement of the medial malleolar fragment, the foot and distal fibula laterally unchanged from the prior exam. Mild posterior displacement of the distal fibula unchanged from the prior exam. Plantar spur of the calcaneus. The visualized subtalar, talonavicular, calcaneocuboid and tarsal articulations are normal. Generalized soft tissue swelling. RAD/Ankle min 3 Views IMPRESSION: Recent fractures of the distal tibia at the base of the medial malleolus and distal fibular fracture are unchanged in appearance or alignment and remaining and circumferential fiberglass unchanged from the prior exam of May 22, 2017. Electronically Signed: Debbie Shaikh MD at 19:22 EST , Service support ,
--- NOTE | 2017-05-23 15:44 | CON.PCM_ITS ---
Reason for Consult Date of Consultation: 05/23/17 History of Present Illness: The patient is a 67 year old female, multiple medical problems including diabetes, obesity, that fell and her home yesterday fracturing her left ankle. She had a fracture dislocation. She was brought to the emergency room. She was reduced and splinted by the emergency room physician. I recommended discharge to home for surgery next week. Due to patient's inability to care for herself with her broken ankle, she was brought into to the hospital. I was consulted. Denies head injury or loss of consciousness. She states her left ankle was fine before. She denies previous broken bones. [] Past Medical History Allergies acetaminophen [From Vicodin] Allergy (Verified 05/22/17 12:12) Vomiting cyclobenzaprine HCl [From Flexeril] Allergy (Verified 05/22/17 12:12) Other diphenhydramine HCl [From Benadryl] Allergy (Verified 05/22/17 12:12) Other doxepin Allergy (Verified 05/22/17 12:12) Other hydrocodone bitartrate [From Vicodin] Allergy (Verified 05/22/17 12:12) Vomiting Iodine and Iodide Containing Produc Allergy (Verified 05/22/17 12:12) Other Home Medications: Ambulatory Orders Medication Instructions Recorded Gabapentin [Neurontin] 800 mg PO TIDCM 04/29/17 Insulin Aspart [Novolog Vial] 18 unit SQ 4X/DAY 04/29/17 Insulin Degludec [Tresiba 68 unit SQ QHS 04/29/17 Flextouch U-100] Levetiracetam [Keppra] 750 mg PO BID 04/29/17 Losartan Potassium [Cozaar] 50 mg PO DAILY 04/29/17 Pramipexole Di-HCl [Mirapex] 0.5 mg PO QHS 04/29/17 Quetiapine Fumarate [Seroquel] 300 mg PO QHS 04/29/17 Crutch 1 ea MC DAILY #1 ea 05/23/17 Oxycodone [Oxyir] 5 - 10 mg PO Q4H PRN PRN 3 Days 05/23/17 #36 tablet Rivaroxaban [Xarelto] 20 mg PO DAILY #30 tab 05/23/17 Surgical History: no surgical history, noncontributory Psychiatric History: No pertinent psych hx FURNACE PUNCHER History: No pertinent FURNACE PUNCHER history Lives: Alone Smoking Status: Never smoker Tobacco Use: Non-smoker Alcohol: None Drugs: None - *Family History Maternal History Items: Cancer - Breast cancer Paternal History Items: Asthma Patient Problems: Active and Suspected Problems Closed left ankle fracture (Acute) Left ankle pain (Acute) Objective: Patient is laying in bed. She is comfortable. She can gently wiggle her toes. Left lower extremity splint is on. Her ankle is a plantarflexed position. Normal sensation of the toes. Normal capillary refill. No calf pain or swelling bilaterally. Negative Homans sign bilaterally. Good active motion toes and ankle on the right. No knee pain with motion. No hip pain with motion. Legs are grossly neurovascular intact. Left lower extremity splint was not removed. Vital signs and laboratory work reviewed. Of note blood sugars have been above 200 consistently. Note from ER physician and admission history and physical reviewed X-rays have been reviewed showing a displaced probable trimalleolar ankle fracture dislocation. Postreduction x-ray showed adequate alignment of the talus within the mortise. Reportedly has fallen in her room today after being splinted. Patient denies new or increasing pain from that fall. - Physical Exam Vital Signs Temp Pulse Resp BP Pulse Ox 99.0 F 102 H 16 135/74 H 99 05/23/17 14:17 05/23/17 14:17 05/23/17 14:17 05/23/17 14:17 05/23/17 14:17 Oxygen Delivery Method Room Air Weight: 119.6 kg Body Mass Index (BMI) 45.9 Intake and Output for Last 24 Hours 05/21/17 05/22/17 05/23/17 23:59 23:59 23:59 Intake Total 741 / 741 Output Total 1000 / 1000 Balance -259 / -259 POC Glucose 05/23/17 05/23/17 05/22/17 12:34 07:37 21:58 POC Glucose 200 H 213 H 224 H 05/22/17 18:00 POC Glucose 240 H Assessment/Plan Active and Suspected Problems Closed left ankle fracture (Acute) Left ankle pain (Acute) Left ankle unstable ankle fracture, probable trimalleolar, reduced dislocation. Surgical intervention recommended. I explained surgery in the first few days after a severe injury due to swelling could increase her risk of wound healing complications. Also I had like to get her blood sugars under better control. We have ordered a hemoglobin A1c. We have ordered repeat ankle x-rays because of her falling. Patient would like to have left ankle surgery. We will tentatively plan for late next week. Most likely done as an outpatient. She will need to be n.p.o. after midnight the night before surgery. Need medical clearance. Risk of surgery including but not limited to from operative or postoperative complications. Risk of anesthetic complications such as heart attacks, strokes, seizures, or . Risk of infections. Risk of damage to nerves arteries tendons. Risk of inadvertent fractures or dislocations. Risk of bone or wound healing complications. Possibility of nonunion malunion pain stiffness weakness. Possible need for further surgery such as hardware removal. Risk of DVT PE and other potential complications could lead to or disability explained. No guarantees were stated or implied. All of their questions were answered. Appropriate informed consent was obtained for surgical intervention. I will try to contact her daughter Nancy. Patient does seem to be somewhat confused. Nursing staff and home health care case manager are aware. No medical problems including diabetes management per hospitalist service while in hospital, primary care physician as an outpatient
--- NOTE | 2017-05-23 15:52 | NURSING ---
talked w/ Dr. Brothers correct phone number given to him as daughter requesting to talk w/ him (called registration and had phone number corrected) Also requesting he talk w/ Dr. Moore himself as he verbalized concerns regarding discharge. Dr. Brothers called back and phone given to Dr. Moore who was on the unit to talk to him.
--- NOTE | 2017-05-23 15:55 | CASEMGMT ---
AKI MERRITT was notified by staff that patient fell in room. Patient continues to be confused. Also notified patient's dtr was concerned about patient's disposition. AKI MERRITT collaborated with 7th grade social studies teacher re: safe transition plan. AKI MERRITT and MAURO discussed with bedside RN, nurse dining room manager, Jorden, and charge nurse, Dominique. AKI MERRITT also discussed recommendations with Dr. Moore. Per Dr. Moore, he agrees patient is not safe to go home due to continued confusion and likely non-adhearence with non-weightbearing status as well as uncontrolled blood sugars. AKI MERRITT had discussion with Dr. Brothers earlier in the day re: patient's confusion and confusion continues. Patient lives alone, has stairs, and has elevated blood sugars. Dominique requested Dr. Brothers call the patient's dtr to explain decision to discharge and recommendations for follow-up, and requested Dr. Brothers and Dr. Moore discuss appropriate plan of care. AKI MERRITT and MAURO to continue to follow for transition planning and care coordination. MORIAH TolbertN, RN-BC, CCM
[2017-05-23 16:11] LABS: Bedside Glucose 151 mg/dL (70-110)
--- NOTE | 2017-05-23 16:30 | CASEMGMT ---
AKI MERRITT spoke with Dr. Brothers. D/C cancelled. Patient will likely require placement. AKI MERRITT updated patient's dtr, Nancy. SW will follow for placement. AKI MERRITT continue to collaborate with SW to arrange safe transition plan. Disposition: TBD
--- NOTE | 2017-05-23 17:06 | PCA ---
Call received from [facility] in regards to pt surgery, ORIF on 05.31.17, Dominique stated their office will call patient tomorrow, 05.24.17, to set up a pre-op appointment to meet with NIRMAL Garza of Dr. Ricketts. Informed primary RN, Timothy who will inform pt daughter.
[2017-05-23 18:28] LABS: Hemoglobin A1c 11.2 % (4.2-6.3)
[2017-05-23 20:13] VITALS: BP 139/102; PULSE 113; RESP 18; TEMP 38.1; O2SAT 98
[2017-05-23] MEDS: QUEtiapine 100 MG Tablet 300 MG PO (20:24)
[2017-05-23] MEDS: Pramipexole Di-HCl 0.5 MG Tablet PO (20:24)
[2017-05-23 21:31] LABS: Bedside Glucose 118 mg/dL (70-110)
[2017-05-23] MEDS: Ketorolac 30 MG/ML Syringe IV (22:21)
[2017-05-24 08:00] VITALS: BP 132/68; PULSE 84; RESP 18; TEMP 36.6; O2SAT 98
[2017-05-24] MEDS: Glucerna Shake 120 ML LIQUID PO ×3 (08:29→16:19)
[2017-05-24] MEDS: Gabapentin 800 MG Tablet PO ×3 (08:30→16:19)
[2017-05-24 08:31] LABS: Bedside Glucose 162 mg/dL (70-110)
--- NOTE | 2017-05-24 08:32 | PCM.PN.HOSP ---
Patient Problems: Active and Suspected Problems Closed left ankle fracture (Acute) Left ankle pain (Acute) Subjective: Discharge held as patient was felt to be confused and did fall while here, w/o new injury. [place] too unsafe to go home, and apparently, daughter unable to adequately help the patient. Vitals/I&O's: Vital Signs Temp Pulse Resp BP Pulse Ox 38.1 C H 113 H 18 139/102 H 98 05/23/17 20:13 05/23/17 20:13 05/23/17 20:13 05/23/17 20:13 05/23/17 20:13 Oxygen Delivery Method Room Air Weight: 119.6 kg Body Mass Index (BMI) 45.9 Intake and Output for Last 24 Hours 05/22/17 05/23/17 05/24/17 23:59 23:59 23:59 Intake Total 741 / 741 340 / 340 Output Total 1000 / 1000 Balance -259 / -259 340 / 340 General: Alert, Cooperative, No apparent distress HEENT: Atraumatic, Normocephalic Neck: No Nodes, Thyroid Normal Size and Texture Lungs: Clear to auscultation, Normal air movement, No rhonchi, No wheeze Cardiovascular: Regular rate, Regular Rhythm, Normal S1, Normal S2 Abdomen: Bowel Sounds Present, Soft, Non Tender, Non-Distended, No Hepato-splenomegaly Extremities: - - left leg in cast. Skin: No rashes, No breakdown Psych/Mental Status: Normal Affect, Appropriate Laboratory Results 05/23/17 12:34: POC Glucose 200 H 05/23/17 15:52: POC Glucose 151 H 05/23/17 17:08: Hemoglobin A1c 11.2 H 05/23/17 21:24: POC Glucose 118 H 05/24/17 08:26: POC Glucose 162 H Current Medications Acetaminophen (Tylenol) 1,000 mg PO Q8 [facility] Dextrose (D50w Syringe) 0 gm IV X1 PRN; Protocol PRN Reason: Hypoglycemia Gabapentin (Neurontin) 800 mg PO TIDCM [facility] Last Admin: 05/23/17 17:07 Dose: 800 mg Glucagon () 1 mg IM .X1 PRN PRN Reason: Hypoglycemia Heparin Sodium (Porcine) () 5,000 units SC BID [facility] Last Admin: 05/23/17 20:24 Dose: 5,000 units Insulin Aspart (Novolog Flexpen (Bkc)) 20 units SC TIDAC [facility] Last Admin: 05/23/17 17:07 Dose: 20 units Insulin Aspart (Novolog Flexpen ([facility])) 0 units SC ACHS [facility] PRN Reason: Protocol Last Admin: 05/23/17 21:31 Dose: Not Given Insulin Detemir (Levemir ([facility])) 40 units SC QHS [facility] Last Admin: 05/23/17 21:31 Dose: 40 u Ketorolac Tromethamine (Toradol) 30 mg IV Q8H PRN PRN PRN Reason: SEVERE PAIN (6-10/10) Last Admin: 05/23/17 22:21 Dose: 30 mg Levetiracetam (Keppra) 750 mg PO BID [facility] Last Admin: 05/23/17 20:24 Dose: 750 mg Losartan Potassium (Cozaar) 50 mg PO DAILY [facility] Last Admin: 05/23/17 07:53 Dose: 50 mg Morphine Sulfate (Morphine) 2 - 4 mg IV Q4H PRN PRN PRN Reason: MOD-SEVERE PAIN (4-10/10) Last Admin: 05/23/17 20:00 Dose: 4 mg Morphine Sulfate (Morphine) 2 - 4 mg IV Q4H PRN PRN PRN Reason: MOD-SEVERE PAIN (4-10/10) Nutritional Formula (Lactose Free) (Glucerna Shake) 120 ml PO TIDCM [facility] Last Admin: 05/23/17 17:10 Dose: 120 ml Nystatin (Mycostatin Powder) 1 applic TOPICAL BID [facility] PRN Reason: Protocol Last Admin: 05/23/17 20:30 Dose: 1 applicatio Ondansetron HCl (Zofran) 4 mg IV Q8H PRN PRN PRN Reason: NAUSEA Oxycodone HCl (Oxyir) 5 - 10 mg PO Q4H PRN PRN PRN Reason: MOD-SEVERE PAIN (4-10/10) Last Admin: 05/23/17 21:30 Dose: 10 mg Pramipexole Dihydrochloride (Mirapex) 0.5 mg PO QHS [facility] Last Admin: 05/23/17 20:24 Dose: 0.5 mg Quetiapine Fumarate (Seroquel) 300 mg PO QHS [facility] Last Admin: 05/23/17 20:24 Dose: 300 mg Sodium Chloride () 5 - 30 ml IV UD PRN PRN Reason: SALINE FLUSH Last Admin: 05/23/17 22:21 Dose: 10 ml Assessment/Plan Active and Suspected Problems Closed left ankle fracture (Acute) Left ankle pain (Acute) 1. Bimalleolar left ankle fracture reduced in the emergency room Nursing states that the patient has been able to ambulate with limitations but able to get herself out of bed on her own accord, however, has fallen and was confused, though appears appropriate today. She will be discharged. She will receive oxycodone for pain control but also instructed to take Tylenol and ibuprofen as needed. She will follow-up with Dr. Moore as outpatient. Nonweightbearing left lower extremity Given the immobility of her left lower extremity I will put her on Xarelto for DVT prophylaxis. That will need to be held for 24-48 hours prior to any surgery. Given falls, and inability of family to adequately care for patient, SNF option is being looked into. 2. DM2 fair control here despite being on lower dose of insulin than she is at home. With an a1c of 11, I would expect her blood sugars to be persistently in the 3-400s. I suspect that the patient does not adequately take her at home. no change at this time for fear that the patient may develop hypoglycemia. If blood sugars remain fairly well controlled, would continue the patient on this regimen. 3. DVT proph: sq heparin here. xarelto on discharge. Code Visit Inpatient E&M: 50381 Subs Hosp L2
[2017-05-24] MEDS: Acetaminophen 500 MG Tablet 1000 MG PO ×3 (08:33→21:56)
--- NOTE | 2017-05-24 08:41 | PN_ITS ---
Patient Problems: Active and Suspected Problems Closed left ankle fracture (Acute) Left ankle pain (Acute) Subjective: Discharge held as patient was felt to be confused and did fall while here, w/o new injury. [place] too unsafe to go home, and apparently, daughter unable to adequately help the patient. Vitals/I&O's: Vital Signs Temp Pulse Resp BP Pulse Ox 38.1 C H 113 H 18 139/102 H 98 05/23/17 20:13 05/23/17 20:13 05/23/17 20:13 05/23/17 20:13 05/23/17 20:13 Oxygen Delivery Method Room Air Weight: 119.6 kg Body Mass Index (BMI) 45.9 Intake and Output for Last 24 Hours 05/22/17 05/23/17 05/24/17 23:59 23:59 23:59 Intake Total 741 / 741 340 / 340 Output Total 1000 / 1000 Balance -259 / -259 340 / 340 General: Alert, Cooperative, No apparent distress HEENT: Atraumatic, Normocephalic Neck: No Nodes, Thyroid Normal Size and Texture Lungs: Clear to auscultation, Normal air movement, No rhonchi, No wheeze Cardiovascular: Regular rate, Regular Rhythm, Normal S1, Normal S2 Abdomen: Bowel Sounds Present, Soft, Non Tender, Non-Distended, No Hepato- splenomegaly Extremities: - - left leg in cast. Skin: No rashes, No breakdown Psych/Mental Status: Normal Affect, Appropriate Laboratory Results 05/23/17 12:34: POC Glucose 200 H 05/23/17 15:52: POC Glucose 151 H 05/23/17 17:08: Hemoglobin A1c 11.2 H 05/23/17 21:24: POC Glucose 118 H 05/24/17 08:26: POC Glucose 162 H Current Medications Acetaminophen (Tylenol) 1,000 mg PO Q8 [facility] Dextrose (D50w Syringe) 0 gm IV X1 PRN; Protocol PRN Reason: Hypoglycemia Gabapentin (Neurontin) 800 mg PO TIDCM [facility] Last Admin: 05/23/17 17:07 Dose: 800 mg Glucagon () 1 mg IM .X1 PRN PRN Reason: Hypoglycemia Heparin Sodium (Porcine) () 5,000 units SC BID [facility] Last Admin: 05/23/17 20:24 Dose: 5,000 units Insulin Aspart (Novolog Flexpen (Bkc)) 20 units SC TIDAC [facility] Last Admin: 05/23/17 17:07 Dose: 20 units Insulin Aspart (Novolog Flexpen ([facility])) 0 units SC ACHS [facility] PRN Reason: Protocol Last Admin: 05/23/17 21:31 Dose: Not Given Insulin Detemir (Levemir ([facility])) 40 units SC QHS [facility] Last Admin: 05/23/17 21:31 Dose: 40 u Ketorolac Tromethamine (Toradol) 30 mg IV Q8H PRN PRN PRN Reason: SEVERE PAIN (6-10/10) Last Admin: 05/23/17 22:21 Dose: 30 mg Levetiracetam (Keppra) 750 mg PO BID [facility] Last Admin: 05/23/17 20:24 Dose: 750 mg Losartan Potassium (Cozaar) 50 mg PO DAILY [facility] Last Admin: 05/23/17 07:53 Dose: 50 mg Morphine Sulfate (Morphine) 2 - 4 mg IV Q4H PRN PRN PRN Reason: MOD-SEVERE PAIN (4-10/10) Last Admin: 05/23/17 20:00 Dose: 4 mg Morphine Sulfate (Morphine) 2 - 4 mg IV Q4H PRN PRN PRN Reason: MOD-SEVERE PAIN (4-10/10) Nutritional Formula (Lactose Free) (Glucerna Shake) 120 ml PO TIDCM [facility] Last Admin: 05/23/17 17:10 Dose: 120 ml Nystatin (Mycostatin Powder) 1 applic TOPICAL BID [facility] PRN Reason: Protocol Last Admin: 05/23/17 20:30 Dose: 1 applicatio Ondansetron HCl (Zofran) 4 mg IV Q8H PRN PRN PRN Reason: NAUSEA Oxycodone HCl (Oxyir) 5 - 10 mg PO Q4H PRN PRN PRN Reason: MOD-SEVERE PAIN (4-10/10) Last Admin: 05/23/17 21:30 Dose: 10 mg Pramipexole Dihydrochloride (Mirapex) 0.5 mg PO QHS [facility] Last Admin: 05/23/17 20:24 Dose: 0.5 mg Quetiapine Fumarate (Seroquel) 300 mg PO QHS [facility] Last Admin: 05/23/17 20:24 Dose: 300 mg Sodium Chloride () 5 - 30 ml IV UD PRN PRN Reason: SALINE FLUSH Last Admin: 05/23/17 22:21 Dose: 10 ml Assessment/Plan Active and Suspected Problems Closed left ankle fracture (Acute) Left ankle pain (Acute) 1. Bimalleolar left ankle fracture * reduced in the emergency room * Nursing states that the patient has been able to ambulate with limitations but able to get herself out of bed on her own accord, however, has fallen and was confused, though appears appropriate today. * She will be discharged. She will receive oxycodone for pain control but also instructed to take Tylenol and ibuprofen as needed. * She will follow-up with Dr. Moore as outpatient. * Nonweightbearing left lower extremity * Given the immobility of her left lower extremity I will put her on Xarelto for DVT prophylaxis. That will need to be held for 24-48 hours prior to any surgery. * Given falls, and inability of family to adequately care for patient, SNF option is being looked into. 2. DM2 * fair control here despite being on lower dose of insulin than she is at home. With an a1c of 11, I would expect her blood sugars to be persistently in the 3- 400s. I suspect that the patient does not adequately take her at home. * no change at this time for fear that the patient may develop hypoglycemia. * If blood sugars remain fairly well controlled, would continue the patient on this regimen. 3. DVT proph: * sq heparin here. xarelto on discharge. Code Visit Inpatient E&M: 19424 Subs Hosp L2
--- NOTE | 2017-05-24 08:50 | CASEMGMT ---
Social Work Note Placed call to pt's daughter, Nancy, and she requests that referrals to [facility]. Placed call to both facilities to update on incoming referral. Will await confirmation regarding ability to accept and notify pt's daughter once confirmed. Plan: SNF pending acceptance. MARY ELLEN EwingW
--- NOTE | 2017-05-24 08:58 | PCM.TXEXTCAR ---
- Diet 05/23/17 11:55 Diet: Carbohydrate Controlled Is pt able to select menu?: No - Routine Orders/Code Status Routine Lab Work: CBC, BMP, - - BGT QACHS - Therapies Weight Bearing: Non weight bearing Extremity Affected:: Left Lower Physical Therapy: Eval and Treat Occupational Therapy: Eval and Treat - Allergies/Procedures Done in Hospital Allergies/Adverse Reactions: Allergies acetaminophen [From Vicodin] Allergy (Verified 05/22/17 12:12) Vomiting cyclobenzaprine HCl [From Flexeril] Allergy (Verified 05/22/17 12:12) Other diphenhydramine HCl [From Benadryl] Allergy (Verified 05/22/17 12:12) Other doxepin Allergy (Verified 05/22/17 12:12) Other hydrocodone bitartrate [From Vicodin] Allergy (Verified 05/22/17 12:12) Vomiting Iodine and Iodide Containing Produc Allergy (Verified 05/22/17 12:12) Other - Type of Care/Length of Stay Estimated LOS: Convalescent Care Less Than 30 days Type of Care Needed: Skilled Rehab Potential: Fair Prognosis: Fair - Additional Orders/Day of Discharge Day of Discharge: 05/24/17 - Dietary and Speech Recommendations Dietitian Recommendations/Changes: Recommend 1800 calorie-controlled diet when advanced. - Follow Up Care Primary Care Physician: Jules Samayoa MD [Primary Care Provider] - Within 2 Weeks Please Follow Up With: Charity Cruz DPM When: Please Follow Up With: Clif Moore MD When: 1 week
[2017-05-24 09:00] VITALS: RESP 18
[2017-05-24] MEDS: levETIRAcetam 750 MG Tablet PO ×2 (09:49→21:56)
[2017-05-24] MEDS: Losartan Potassium 50 MG Tablet PO (09:50)
[2017-05-24] MEDS: Nystatin Powder 15gm Bottle 1 APPLIC TOPICAL ×2 (09:50→21:56)
[2017-05-24] MEDS: Heparin Injection 5,000 UNITS/ML Syringe 5000 UNITS SC ×2 (09:50→21:56)
[2017-05-24 11:31] LABS: Bedside Glucose 320 mg/dL (70-110)
[2017-05-24] MEDS: Ketorolac 10 MG Tablet PO ×2 (11:53→21:55)
--- NOTE | 2017-05-24 12:23 | NURSING ---
Addendum entered by Dominique Panda 05/24/17 12:58: Dr. Brothers also informed of pt's confusion as well as statements that she is on vicodin at home from pcp however not on pcp's med list. Original Note: in to room as pt yelled out I'm having seizures pt found in bed no seizure activity notable. asked patient what kind of seizures she is having and patient flops her arms above her head. 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 discussed her typical behavior after a seizure. pt is alert and oriented to self, able to follow commands. pt informed will place seizures pads and place her on the camera to watch for seizure activity. Primary RN updated. CLEANING MANAGER in to assist pt to bathroom. Dr. Brothers informed.
--- NOTE | 2017-05-24 13:28 | CASEMGMT ---
Social Work Note Call from Edita at [facility] stating that they could accept the pt tomorrow, 05/24. States that the pt will need to establish a secondary insurance as they anticipate she will need longer than the 20 days covered by Medicare. Reviewed pt's chart and appears that she had Medicaid in the past, but financial services notes indicate she is not eligible for Medicaid. Placed call to pt's daughter, Nancy, and update that [facility] can accept tomorrow, once secondary insurance has been established. Inquire if the pt has Medicaid and Nancy reports that she does have both Medicare and Medicaid. Does not know where the cards are however. Would like staff to notify pt that Nancy has been trying to contact her, but has been unable to get through and would like her to contact her. Call placed to Jonathan LEONARD to confirm if pt has Medicaid or not. Waited on hold for 55 minutes. Employee Health Nurse forwarded SW to Maribel Smith and had to leave requesting a return phone call to confirm if the pt has Medicaid and that we were seeking placement for her. Will continue to follow and assist with discharge planning. Placed call to Edita at [facility] to update. Rossana Cervantes, RETAIL FIELD SUPERVISOR, MOLDED GOODS CONTROLS OPERATOR
[2017-05-24 15:00] VITALS: RESP 18
[2017-05-24 16:20] LABS: Bedside Glucose 220 mg/dL (70-110)
[2017-05-24 21:47] VITALS: BP 105/73; PULSE 95; RESP 18; TEMP 36.7; O2SAT 97
[2017-05-24] MEDS: QUEtiapine 100 MG Tablet 300 MG PO (21:56)
[2017-05-24] MEDS: Pramipexole Di-HCl 0.5 MG Tablet PO (21:56)
[2017-05-24 22:16] LABS: Bedside Glucose 195 mg/dL (70-110)
[2017-05-25 04:20] VITALS: BP 106/54; PULSE 103; RESP 18; TEMP 36.7; O2SAT 94
[2017-05-25] MEDS: oxyCODONE 5 MG Tablet PO ×2 (04:23→14:03)
[2017-05-25] MEDS: Acetaminophen 500 MG Tablet 1000 MG PO ×2 (04:23→12:07)
[2017-05-25 08:10] LABS: Bedside Glucose 210 mg/dL (70-110)
[2017-05-25] MEDS: Gabapentin 800 MG Tablet PO ×2 (08:35→12:07)
[2017-05-25] MEDS: Glucerna Shake 120 ML LIQUID PO (08:38)
[2017-05-25 09:58] VITALS: BP 98/56; PULSE 97; RESP 18; TEMP 36.7; O2SAT 95
[2017-05-25] MEDS: Losartan Potassium 50 MG Tablet PO (10:11)
[2017-05-25] MEDS: Heparin Injection 5,000 UNITS/ML Syringe 5000 UNITS SC (10:11)
[2017-05-25] MEDS: levETIRAcetam 750 MG Tablet PO (10:11)
[2017-05-25] MEDS: Nystatin Powder 15gm Bottle 1 APPLIC TOPICAL (10:12)
--- NOTE | 2017-05-25 11:50 | PCM.PN.HOSP ---
Patient Problems: Active and Suspected Problems Closed left ankle fracture (Acute) Left ankle pain (Acute) Subjective: Ankle pain feeling better. Vitals/I&O's: Vital Signs Temp Pulse Resp BP Pulse Ox 36.7 C 97 18 98/56 L 95 05/25/17 09:58 05/25/17 09:58 05/25/17 09:58 05/25/17 09:58 05/25/17 09:58 Oxygen Delivery Method Room Air Weight: 119.6 kg Body Mass Index (BMI) 45.9 Intake and Output for Last 24 Hours 05/23/17 05/24/17 05/25/17 23:59 23:59 23:59 Intake Total 1890 / 1890 Output Total 200 / 200 Balance 1690 / 1690 General: Alert, Cooperative, No apparent distress HEENT: Atraumatic, Normocephalic Extremities: - - At the ankle in a cast. Laboratory Results 05/24/17 16:16: POC Glucose 220 H 05/24/17 21:54: POC Glucose 195 H 05/25/17 08:06: POC Glucose 210 H Current Medications Acetaminophen (Tylenol) 1,000 mg PO Q8 [facility] Last Admin: 05/25/17 04:23 Dose: 1,000 mg Dextrose (D50w Syringe) 0 gm IV X1 PRN; Protocol PRN Reason: Hypoglycemia Gabapentin (Neurontin) 800 mg PO TIDCM [facility] Last Admin: 05/25/17 08:35 Dose: 800 mg Glucagon () 1 mg IM .X1 PRN PRN Reason: Hypoglycemia Heparin Sodium (Porcine) () 5,000 units SC BID [facility] Last Admin: 05/25/17 10:11 Dose: 5,000 units Insulin Aspart (Novolog Flexpen (Bkc)) 20 units SC TIDAC [facility] Last Admin: 05/25/17 08:35 Dose: 20 units Insulin Aspart (Novolog Flexpen (Bkc)) 0 units SC ACHS [facility] PRN Reason: Protocol Last Admin: 05/25/17 08:36 Dose: 4 units Insulin Detemir (Levemir (Bkc)) 40 units SC QHS [facility] Last Admin: 05/24/17 21:54 Dose: 40 u Levetiracetam (Keppra) 750 mg PO BID [facility] Last Admin: 05/25/17 10:11 Dose: 750 mg Losartan Potassium (Cozaar) 50 mg PO DAILY [facility] Last Admin: 05/25/17 10:11 Dose: 50 mg Morphine Sulfate (Morphine) 2 - 4 mg IV Q4H PRN PRN PRN Reason: MOD-SEVERE PAIN (4-10/10) Last Admin: 05/23/17 20:00 Dose: 4 mg Morphine Sulfate (Morphine) 2 - 4 mg IV Q4H PRN PRN PRN Reason: MOD-SEVERE PAIN (4-10/10) Nutritional Formula (Lactose Free) (Glucerna Shake) 120 ml PO TIDCM [facility] Last Admin: 05/25/17 08:38 Dose: 120 ml Nystatin (Mycostatin Powder) 1 applic TOPICAL BID [facility] PRN Reason: Protocol Last Admin: 05/25/17 10:12 Dose: 1 applicatio Ondansetron HCl (Zofran) 4 mg IV Q8H PRN PRN PRN Reason: NAUSEA Oxycodone HCl (Oxyir) 5 - 10 mg PO Q4H PRN PRN PRN Reason: MOD-SEVERE PAIN (4-10/10) Last Admin: 05/25/17 04:23 Dose: 10 mg Pramipexole Dihydrochloride (Mirapex) 0.5 mg PO QHS [facility] Last Admin: 05/24/17 21:56 Dose: 0.5 mg Quetiapine Fumarate (Seroquel) 300 mg PO QHS [facility] Last Admin: 05/24/17 21:56 Dose: 300 mg Sodium Chloride () 5 - 30 ml IV UD PRN PRN Reason: SALINE FLUSH Last Admin: 05/23/17 22:21 Dose: 10 ml Assessment/Plan Active and Suspected Problems Closed left ankle fracture (Acute) Left ankle pain (Acute) 1. Bimalleolar left ankle fracture reduced in the emergency room Nursing states that the patient has been able to ambulate with limitations but able to get herself out of bed on her own accord, however, has fallen and was confused, though appears appropriate today. She will be discharged. She will receive oxycodone for pain control but also instructed to take Tylenol and ibuprofen as needed. She will follow-up with Dr. Moore as outpatient. Nonweightbearing left lower extremity Given the immobility of her left lower extremity I will put her on Xarelto for DVT prophylaxis. That will need to be held for 24-48 hours prior to any surgery. Given falls, and inability of family to adequately care for patient, SNF option is being looked into. 2. DM2 fair control here despite being on lower dose of insulin than she is at home. With an a1c of 11, I would expect her blood sugars to be persistently in the 3-400s. I suspect that the patient does not adequately take her at home. no change at this time for fear that the patient may develop hypoglycemia. If blood sugars remain fairly well controlled, would continue the patient on this regimen. 3. DVT proph: sq heparin here. xarelto on discharge. Precertification has been obtained and the patient will be discharged today. Code Visit Inpatient E&M: 94818 Disch Hosp
--- NOTE | 2017-05-25 12:21 | NURSING ---
Daughter Nancy aware of DC time of 1500.
[2017-05-25 13:06] LABS: Bedside Glucose 269 mg/dL (70-110)
--- NOTE | 2017-05-25 14:45 | NURSING ---
Report called to Lindsay at [facility]
--- NOTE | 2017-05-27 09:19 | CASEMGMT ---
Social Work Note PAS/RR completed and submitted in the [facility]. Copy faxed to Edita at [facility]. Rossana Cervantes, RADIOISOTOPE PRODUCTION OPERATOR, VENDING SUPERVISOR
--- NOTE | 2017-06-03 10:51 | CCN.REFER ---
MANY ATTEMPTS TO REACH PATIENT; DOES NOT HAVE PHONE ON AND NOT ABLE TO LEAVE VM RT,ELECTRIC WIRER CCN
== END 2017-05-25 15:27 | disposition skilled nursing facility (03) | DRG 563 ==
LOC: ED 12:40 → MS3 15:50
PROVIDERS: Physician Assistant; Admitting Provider Internal Medicine; Emergency Provider Emergency Medicine; Family Provider Internal Medicine; PCP Internal Medicine
DX: S82.842A Displaced bimalleolar fracture of left lower leg, initial encounter for closed fracture (principal); E11.65 Type 2 diabetes mellitus with hyperglycemia; Z68.42 Body mass index [BMI] 45.0-49.9, adult; W01.0XXA Fall on same level from slipping, tripping and stumbling without subsequent striking against object, initial encounter; G40.909 Epilepsy, unspecified, not intractable, without status epilepticus; Y93.01 Activity, walking, marching and hiking; Y92.039 Unspecified place in apartment as the place of occurrence of the external cause; Z79.4 Long term (current) use of insulin; E66.9 Obesity, unspecified
CPT/HCPCS: 73600; 73610; 80048; 82962; 83036; 85025; 85610; 97110; 97162; 97165; 97530; 97802; 99285; J7030; A4216; J2405

== ENCOUNTER 2017-05-31 07:27 | Day surgery (SDC) | payer MEDICARE, SELFPAY ==
--- NOTE | 2017-05-29 13:05 | PCM.HP.BLA ---
History and Physical DATE OF SERVICE: 05/31/2017 SCHEDULED PROCEDURE: Open Reduction Internal Fixation Left Ankle HISTORY OF PRESENT ILLNESS: This is a 67-year-old female who sustained a left ankle fracture 1 week ago when she fell at home injuring the left ankle. Patient was taken to [facility] emergency room in which x-rays were obtained and showed a fracture/dislocation. Patient underwent a reduction and was splinted by the emergency room physician. Dr. Clif Moore was consulted and saw the patient in the hospital and recommended surgical intervention. Patient has been at [facility]. She has been nonweightbearing and is continued with the splint. She presents today in a wheelchair. Patient has been using oxycodone for pain control. Patient denies previous injury to the left ankle. She currently denies any chest pain, shortness of breath, fevers chills, or recent infection. Patient has medical history pertinent for type 2 diabetes mellitus in which she takes insulin. Her previous A1c was 11.2. Patient also has underlying asthma, hypertension, neuropathy, and restless leg syndrome. Patient also sees a neurologist. Patient underwent lab work and EKG in the hospital. Patient does wish to proceed with a left ankle open reduction internal fixation. REVIEW OF SYSTEMS: ROS: Const: Reports weight change,Denies change in appetite, fever. CV: Denies chest pain, heart murmur and irregular heartbeat. Resp: Reports cough and wheezing, but denies pneumonia, SOB and tuberculosis. GI: Reports diarrhea, heartburn and nausea, but denies constipation, difficulty swallowing, bloody stools and vomiting. : . (F Genital Sx) Urinary: denies incontinence. Musculo: Reports leg swelling, limp, trouble walking and weakness. Skin: Denies Raynaud's, history of shingles and tattoo. Neuro: Reports difficulty with balance but denies ambulatory dysfunction, dizziness, numbness/tingling and tremor. Psych: Reports anxiety and insomnia, but denies stress. Jimmie/Lymph: Denies anemia, bleeding/bruising tendency and past transfusion. Reviewed and updated. PAST MEDICAL HISTORY: Advance Care Plan: PMH: Medical Problems: Arthritis, Asthma, Depression, Diabetes, High Blood Pressure, Hypercholesterolemia, Neuropathy, Restless Leg Accidents: LT Ankle FX - (05/2017) Fracture - BACK Surgical Hx: None Anesthesia Complications: None Assistive Devices: Glasses, Brace, Cane, Walker Reviewed and updated. SOCIAL HISTORY: SH: Marital: .Occupation: Retired.Work Status: Retired.Hand Dominance: Right-handed. Personal Habits: Cigarette Use: Never Smoked Cigarettes.Alcohol: Denies use.Drug Use: Former Illegal Drug User.Enjoy Exercising: Daily. Reviewed and updated. VITALS: Ht: 63.5 Wt: 200lb Wt k.720 BMI: 34.9 BP: 120/80 Pulse: 88 Resp: 16 T: 98.5 T: 36.9C ALLERGIES: Cyclobenzaprine Diphenhydramine Doxepin Hydrocodone Iodine MEDICATIONS: Micro Guard 2 % apply topically per plan of treatment, Xarelto 20 mg 1 by mouth every day, Gabapentin 800 mg one PO daily, Levetiracetam 750 mg one PO bid, Losartan Potassium 50 mg 1 by mouth every day, Pramipexole Dihydrochloride 0.5 mg one PO daily, Novolog 100 Unit/ML 15 units w/ meals, Tresiba Flextouch 100 Unit/ML inject 68 units subq daily, Quetiapine Fumarate 300 mg one PO daily, Oxycodone HCL 10 mg 1 by mouth every day, Oxycodone HCL 5 mg 1-2 by mouth every 6 hours PRE-OP EXAM: General appearance:NORMAL Other: Eyes: Conjunctivae and lids: NORMAL Pupils: ERR Ears, Nose, Mouth, and Throat: NORMAL Other: Inspection of lips, teeth and gums: NORMAL Other: Neck: Examination of neck: no masses noted. Respiratory: Assessment of respiratory effort: NORMAL Other: Ausculation of lungs: clear to ausculation no wheeses, ronchi or rales. Cardiovascular: Ausculation of heart: regular rate and rhythem, no mummurs, gallops or rubs. Exam of carotid arteries: NORMAL Other: Gastrointestinal: Exam of abdomen: soft, nontender, nondistended bowel sounds present. Lymphatic: Palpation of nodes in neck: NORMAL Other: Palpation of nodes in Axillae: NORMAL Other: Neurological: see below Psychiatric: Orientation to time, place and person: NORMAL Other: Mood and affect: NORMAL Other: PHYSICAL EXAMINATION: Patient presents in wheelchair. Left ankle has splint placed with soft dressing. Patient is able to wiggle her toes and does have sensation to the toes. Dressing was not taken down. She will remain nonweightbearing. IMAGING STUDIES: X-rays from [facility] shows a displaced trimalleolar ankle fracture dislocation. Postreduction x-rays show adequate alignment of the talus within the mortise. IMPRESSION: 1. Left ankle trimalleolar fracture with reduction and splinting in the emergency room 2. Hypertension 3. Type 2 diabetes mellitus on insulin: Last A1c was 11.2 4. Asthma 5. Depression 6. Hypercholesterolemia 7. Neuropathy 8. Restless leg 9. Patient does see a neurologist for unknown treatment: Patient poor historian PLAN: Dr. Moore did discuss and review with the patient all treatment options including surgical versus nonsurgical. Patient wishes to proceed with above-stated procedure. Potential risks, benefits, and complications of this procedure were discussed in detail including but not limited to , infection, nerve and blood vessel damage, persistent pain, numbness, tingling, paresthesias, blood clot, pulmonary embolism, and requirement for further surgery. The patient expressed full understanding has no further questions for the doctor. Patient does agree to proceed with the above-stated procedure and has signed the surgery consent form. Patient has already obtained lab work and EKG at [facility]. Did discuss with the patient due to her uncontrolled type 2 diabetes mellitus there is risks for poor wound healing, fracture healing. Patient voiced understanding and agreement. She is instructed to follow-up with her primary care physician for management. Patient was placed on Xarelto at discharge from [facility] for DVT prophylaxis. She has been informed to stop this immediately which will be 2 days prior to surgery. ___ I have re-examined the patient. There are no clinical changes since date of exam. ___ See progress notes for changes. ___ Dictated on admission Date: Time: Signature:
--- NOTE | 2017-05-29 13:09 | HP.PCM_ITS ---
History and Physical DATE OF SERVICE: 05/31/2017 SCHEDULED PROCEDURE: Open Reduction Internal Fixation Left Ankle HISTORY OF PRESENT ILLNESS: This is a 67-year-old female who sustained a left ankle fracture 1 week ago when she fell at home injuring the left ankle. Patient was taken to [facility] emergency room in which x-rays were obtained and showed a fracture/dislocation. Patient underwent a reduction and was splinted by the emergency room physician. Dr. Clif Moore was consulted and saw the patient in the hospital and recommended surgical intervention. Patient has been at [facility]. She has been nonweightbearing and is continued with the splint. She presents today in a wheelchair. Patient has been using oxycodone for pain control. Patient denies previous injury to the left ankle. She currently denies any chest pain, shortness of breath, fevers chills, or recent infection. Patient has medical history pertinent for type 2 diabetes mellitus in which she takes insulin. Her previous A1c was 11.2. Patient also has underlying asthma, hypertension, neuropathy, and restless leg syndrome. Patient also sees a neurologist. Patient underwent lab work and EKG in the hospital. Patient does wish to proceed with a left ankle open reduction internal fixation. REVIEW OF SYSTEMS: ROS: Const: Reports weight change,Denies change in appetite, fever. CV: Denies chest pain, heart murmur and irregular heartbeat. Resp: Reports cough and wheezing, but denies pneumonia, SOB and tuberculosis. GI: Reports diarrhea, heartburn and nausea, but denies constipation, difficulty swallowing, bloody stools and vomiting. : . (F Genital Sx) Urinary: denies incontinence. Musculo: Reports leg swelling, limp, trouble walking and weakness. Skin: Denies Raynaud's, history of shingles and tattoo. Neuro: Reports difficulty with balance but denies ambulatory dysfunction, dizziness, numbness/tingling and tremor. Psych: Reports anxiety and insomnia, but denies stress. Jimmie/Lymph: Denies anemia, bleeding/bruising tendency and past transfusion. Reviewed and updated. PAST MEDICAL HISTORY: Advance Care Plan: PMH: Medical Problems: Arthritis, Asthma, Depression, Diabetes, High Blood Pressure, Hypercholesterolemia, Neuropathy, Restless Leg Accidents: LT Ankle FX - (05/2017) Fracture - BACK Surgical Hx: None Anesthesia Complications: None Assistive Devices: Glasses, Brace, Cane, Walker Reviewed and updated. SOCIAL HISTORY: SH: Marital: .Occupation: Retired.Work Status: Retired.Hand Dominance: Right -handed. Personal Habits: Cigarette Use: Never Smoked Cigarettes.Alcohol: Denies use.Drug Use: Former Illegal Drug User.Enjoy Exercising: Daily. Reviewed and updated. VITALS: Ht: 63.5 Wt: 200lb Wt k.720 BMI: 34.9 BP: 120/80 Pulse: 88 Resp: 16 T: 98.5 T: 36.9C ALLERGIES: Cyclobenzaprine Diphenhydramine Doxepin Hydrocodone Iodine MEDICATIONS: Micro Guard 2 % apply topically per plan of treatment, Xarelto 20 mg 1 by mouth every day, Gabapentin 800 mg one PO daily, Levetiracetam 750 mg one PO bid, Losartan Potassium 50 mg 1 by mouth every day, Pramipexole Dihydrochloride 0.5 mg one PO daily, Novolog 100 Unit/ML 15 units w/ meals, Tresiba Flextouch 100 Unit/ML inject 68 units subq daily, Quetiapine Fumarate 300 mg one PO daily, Oxycodone HCL 10 mg 1 by mouth every day, Oxycodone HCL 5 mg 1-2 by mouth every 6 hours PRE-OP EXAM: General appearance:NORMAL Other: Eyes: Conjunctivae and lids: NORMAL Pupils: ERR Ears, Nose, Mouth, and Throat: NORMAL Other: Inspection of lips, teeth and gums: NORMAL Other: Neck: Examination of neck: no masses noted. Respiratory: Assessment of respiratory effort: NORMAL Other: Ausculation of lungs: clear to ausculation no wheeses, ronchi or rales. Cardiovascular: Ausculation of heart: regular rate and rhythem, no mummurs, gallops or rubs. Exam of carotid arteries: NORMAL Other: Gastrointestinal: Exam of abdomen: soft, nontender, nondistended bowel sounds present. Lymphatic: Palpation of nodes in neck: NORMAL Other: Palpation of nodes in Axillae: NORMAL Other: Neurological: see below Psychiatric: Orientation to time, place and person: NORMAL Other: Mood and affect: NORMAL Other: PHYSICAL EXAMINATION: Patient presents in wheelchair. Left ankle has splint placed with soft dressing. Patient is able to wiggle her toes and does have sensation to the toes. Dressing was not taken down. She will remain nonweightbearing. IMAGING STUDIES: X-rays from [facility] shows a displaced trimalleolar ankle fracture dislocation. Postreduction x-rays show adequate alignment of the talus within the mortise. IMPRESSION: 1. Left ankle trimalleolar fracture with reduction and splinting in the emergency room 2. Hypertension 3. Type 2 diabetes mellitus on insulin: Last A1c was 11.2 4. Asthma 5. Depression 6. Hypercholesterolemia 7. Neuropathy 8. Restless leg 9. Patient does see a neurologist for unknown treatment: Patient poor historian PLAN: Dr. Moore did discuss and review with the patient all treatment options including surgical versus nonsurgical. Patient wishes to proceed with above- stated procedure. Potential risks, benefits, and complications of this procedure were discussed in detail including but not limited to , infection , nerve and blood vessel damage, persistent pain, numbness, tingling, paresthesias, blood clot, pulmonary embolism, and requirement for further surgery. The patient expressed full understanding has no further questions for the doctor. Patient does agree to proceed with the above-stated procedure and has signed the surgery consent form. Patient has already obtained lab work and EKG at [facility]. Did discuss with the patient due to her uncontrolled type 2 diabetes mellitus there is risks for poor wound healing, fracture healing. Patient voiced understanding and agreement. She is instructed to follow-up with her primary care physician for management. Patient was placed on Xarelto at discharge from [facility] for DVT prophylaxis. She has been informed to stop this immediately which will be 2 days prior to surgery. ___ I have re-examined the patient. There are no clinical changes since date of exam. ___ See progress notes for changes. ___ Dictated on admission Date: Time: Signature:
[2017-05-31 08:07] VITALS: BP 110/65; PULSE 82; RESP 16; TEMP 37.1; O2SAT 95; BMI 37.5
[2017-05-31 08:25] LABS: Bedside Glucose 255 mg/dL (70-110)
[2017-05-31] MEDS: Cefazolin 2 GM in 0.9% Normal Saline 100 ML IV (09:15)
--- NOTE | 2017-05-31 09:28 | RAD_ITS ---
STUDY: X-RAY - LEFT ANKLE REASON FOR EXAM: Female, 67 years old. Projection and the fixation of the bimalleolar fracture. TECHNIQUE: 5 intraoperative view(s) of the ankle. COMPARISON: Comparison is made with prior study dated May 23, 2017. FINDINGS: The patient is status post open reduction and fixation of the distal fibular fracture utilizing screws and sideplate fixation device. A screw is seen transfixing the distal tibial fibular joint as well as the medial malleolar fracture. RAD/Ankle min 3 Views IMPRESSION: Satisfactory reduction of the bimalleolar fracture. Electronically Signed: Tomasz Johnson MD at 13:43 EST Tel [phone], Service support ,
[2017-05-31 11:52] VITALS: BP 110/65; BP 127/93; PULSE 95; RESP 14; TEMP 36.5; O2SAT 96
--- NOTE | 2017-05-31 12:01 | OP.PCM_ITS ---
Operative Report Date of Procedure: 05/31/17 Preoperative diagnosis left ankle displaced unstable trimalleolar fracture Postoperative diagnosis same plus syndesmosis disruption Title of operation ORIF left ankle trimalleolar fracture with syndesmosis screw stabilization Surgeon: Dr. Clif Moore Public Address Announcer: Evie Cárdenas Anesthesia: General, nerve block in recovery room Medications: Ancef Indications for surgery patient had an ankle fracture about 1 week ago. She needed medical optimization. We wanted swelling to come down. She did wish to have surgery. Findings: Unstable displaced trimalleolar ankle fracture and syndesmosis disruption. She underwent stabilization using Arthrex lateral fibular plate, medial fixation with 4 oh cancellus screws, syndesmosis stabilization with 3.5 cortical screw. Patient casted. Details of procedure: She was taken to the operating room and transferred to the OR table. Timeout performed. Ancef given. Tourniquet applied to left upper thigh but not used. Right lower extremity had RICK hose and SCD on throughout. Left lower extremity was prepped padded draped in the usual orthopedic sterile fashion for the procedure. Longitudinal incision was made over the fibula. Through skin subcutaneous tissue down on the bone. Bleeding controlled with Bovie. Fracture reduced. Fracture irrigated. Reduction clamp in place. 2 anterior to posterior lag screws placed with 3.5 screws. Bone was noted to be osteoporotic. We placed the appropriate length Arthrex fibular plate on the bone. Held in place with reduction clamp. Also 2 olive wires. We ultimately placed multiple 2.7 screws distal locking screws. We placed 3 3.5 cortical screws through the plate into the bone. We are happy with our reduction despite still parotic bone. We now made a medial incision anterior to a blister. Through skin subcutaneous tissue down on fracture site. Fracture site irrigated. Soft tissue removed from fracture site. Fracture medially reduced with a bone reduction clamp. Ultimately 2 K wires placed from the tip of the malleolus across the fracture in good position. We then used the appropriate length 4.0 cancellus cannulated screw over these. Excellent purchase noted. We felt syndesmosis remained unstable. This was done with gentle stressing. We then reduced the syndesmosis and placed a 3.5 screw from the lateral plate parallel to the joint through the fibula and medial anterior tibia. Purchase in bone noted. Syndesmosis is now stable. AP lateral and obliques taken and saved. Wounds were thoroughly irrigated. Bleeding controlled with Bovie. Gilberto in wound. Wounds closed with deep 2-0 Vicryl, inverted 2-0 Vicryl, cavalon, Steri-Strips. Well-padded leg cast applied with ankle in neutral position. Post casting x-rays showed good alignment of her bones and ankle joint. Patient transferred to recovery room.
[2017-05-31 12:15] VITALS: BP 110/65; BP 127/70; PULSE 95; RESP 16; O2SAT 92
[2017-05-31 12:30] VITALS: BP 110/65; BP 119/59; PULSE 98; RESP 16; O2SAT 93
[2017-05-31 12:36] LABS: Bedside Glucose 256 mg/dL (70-110)
[2017-05-31 12:43] VITALS: BP 110/65; BP 117/64; PULSE 98; RESP 16; TEMP 36.9; O2SAT 93
[2017-05-31 13:23] VITALS: BP 110/65; BP 123/78; PULSE 78; RESP 18; TEMP 37.1; O2SAT 98
== END 2017-05-31 13:25 | disposition home or self-care (01) ==
LOC: SDC 07:29 → AC 07:30
PROVIDERS: Family Provider Internal Medicine; PCP Internal Medicine; Visit Provider Orthopaedic Surgery
PROC: (CPT 27822; principal; 2017-05-31 08:55)
DX: S82.852A Displaced trimalleolar fracture of left lower leg, initial encounter for closed fracture (principal); S93.432A Sprain of tibiofibular ligament of left ankle, initial encounter; W19.XXXA Unspecified fall, initial encounter; Y93.9 Activity, unspecified; Y92.009 Unspecified place in unspecified non-institutional (private) residence as the place of occurrence of the external cause; I10 Essential (primary) hypertension; E78.00 Pure hypercholesterolemia, unspecified; G25.81 Restless legs syndrome; J45.909 Unspecified asthma, uncomplicated; F32.9 Major depressive disorder, single episode, unspecified; E11.40 Type 2 diabetes mellitus with diabetic neuropathy, unspecified; Z79.4 Long term (current) use of insulin; G40.909 Epilepsy, unspecified, not intractable, without status epilepticus; Z79.01 Long term (current) use of anticoagulants; Z79.899 Other long term (current) drug therapy
CPT/HCPCS: 01480; 27822; 27829; 64445; 73610; 76000; 82962; J3010; J7120; J2405

== ENCOUNTER → 2017-08-05 05:00 | Outpatient (REF) | payer MEDICARE, SELFPAY ==
[2017-08-05 07:58] LABS: Hemoglobin 12.7 g/dl (12.0-15.0); Mean Corp Hgb Conc 34.3 g/gl (32-36); Mean Corpuscular Hgb 29.2 pg (27.0-32.0); Mean Corpuscular Volume 85.1 fL (81-99); Mean Platelet Vol. 9.3 fl (6.2-12.0); Platelet Count 264 K/mm3 (150-450); RBC Distribution Width CV 12.3 % (11.6-14.6); RBC Distribution Width SD 37.5 fl (35.1-43.9); Red Blood Count 4.35 M/mm3 (4.2-5.4); White Blood Count 8.5 K/mm3 (4.4-11.0)
[2017-08-05 08:00] LABS: Scan Indicated on CBC? Y/N NO
[2017-08-05 08:07] LABS: Anion Gap 9 (5-15); BUN 15 mg/dL (7-18); BUN/Creat Ratio 17.8 RATIO (10-20); Calcium,Total 9.6 mg/dL (8.5-10.1); Chloride 102 mmol/L (98-107); Creatinine, Serum 0.84 mg/dL (0.55-1.02); EST Glomerular Filtration Rate 72 mL/min (>60); Est Glom Filt Rate - Afr Amer 87 mL/min (>60); Glucose 113 mg/dL (74-106); Potassium 4.3 mmol/L (3.5-5.1); Sodium Level 134 mmol/L (136-145)
== END ==
LOC: OLS.WHLTCC 05:00
PROVIDERS: Visit Provider Family Medicine
DX: I10 Essential (primary) hypertension (principal); E78.5 Hyperlipidemia, unspecified; E66.9 Obesity, unspecified; E11.9 Type 2 diabetes mellitus without complications
CPT/HCPCS: 36415; 80048; 85027

== ENCOUNTER → 2017-08-19 05:00 | Outpatient (REF) | payer MEDICARE, MEDICAID, SELFPAY ==
[2017-08-19 09:43] LABS: Hematocrit 40.4 % (37-47); Hemoglobin 13.6 g/dl (12.0-15.0); Mean Corp Hgb Conc 33.7 g/gl (32-36); Mean Corpuscular Hgb 29.4 pg (27.0-32.0); Mean Corpuscular Volume 87.4 fL (81-99); Platelet Count 229 K/mm3 (150-450); RBC Distribution Width CV 13.3 % (11.6-14.6); RBC Distribution Width SD 41.5 fl (35.1-43.9); Red Blood Count 4.62 M/mm3 (4.2-5.4); White Blood Count 7.5 K/mm3 (4.4-11.0)
[2017-08-19 09:45] LABS: Scan Indicated on CBC? Y/N NO
[2017-08-19 09:59] LABS: Anion Gap 10 (5-15); BUN 17 mg/dL (7-18); BUN/Creat Ratio 24.5 RATIO (10-20); Calcium,Total 9.9 mg/dL (8.5-10.1); Chloride 104 mmol/L (98-107); EST Glomerular Filtration Rate 89 mL/min (>60); Est Glom Filt Rate - Afr Amer 108 mL/min (>60); Glucose 63 mg/dL (74-106); Sodium Level 138 mmol/L (136-145)
== END ==
LOC: OLS.WHLTCC 05:00
PROVIDERS: Visit Provider Family Medicine
DX: E78.5 Hyperlipidemia, unspecified (principal); I10 Essential (primary) hypertension; E11.9 Type 2 diabetes mellitus without complications
CPT/HCPCS: 36415; 80048; 85027

== ENCOUNTER → 2017-09-04 06:35 | Outpatient (REF) | payer MEDICARE, SELFPAY ==
[2017-09-09 23:37] LABS: Hematocrit 41.6 % (37-47); Hemoglobin 13.7 g/dl (12.0-15.0); Mean Corp Hgb Conc 32.9 g/gl (32-36); Mean Corpuscular Hgb 28.9 pg (27.0-32.0); Mean Corpuscular Volume 87.8 fL (81-99); Red Blood Count 4.74 M/mm3 (4.2-5.4)
[2017-09-09 23:38] LABS: Anion Gap 10 (5-15); BUN 14 mg/dL (7-18); BUN/Creat Ratio 17.9 RATIO (10-20); Calcium,Total 9.5 mg/dL (8.5-10.1); Chloride 108 mmol/L (98-107); Creatinine, Serum 0.78 mg/dL (0.55-1.02); EST Glomerular Filtration Rate 78 mL/min (>60); Est Glom Filt Rate - Afr Amer 95 mL/min (>60); Glucose 65 mg/dL (74-106); Mean Platelet Vol. 9.1 fl (6.2-12.0); Platelet Count 181 K/mm3 (150-450); Potassium 4.2 mmol/L (3.5-5.1); RBC Distribution Width CV 13.6 % (11.6-14.6); RBC Distribution Width SD 43.5 fl (35.1-43.9); Scan Indicated on CBC? Y/N NO; Sodium Level 142 mmol/L (136-145)
== END ==
LOC: OLS.WHLTCC 06:35
PROVIDERS: Visit Provider Family Medicine
DX: I10 Essential (primary) hypertension (principal); E78.5 Hyperlipidemia, unspecified; E11.9 Type 2 diabetes mellitus without complications
CPT/HCPCS: 36415; 80048; 85027

== ENCOUNTER → 2017-10-04 05:00 | Outpatient (REF) | payer MEDICARE, MEDICAID, SELFPAY ==
[2017-10-04 08:07] LABS: Hematocrit 37.9 % (37-47); Hemoglobin 12.3 g/dl (12.0-15.0); Mean Corp Hgb Conc 32.5 g/gl (32-36); Mean Corpuscular Hgb 28.6 pg (27.0-32.0); Mean Corpuscular Volume 88.1 fL (81-99); Mean Platelet Vol. 9.2 fl (6.2-12.0); Platelet Count 162 K/mm3 (150-450); RBC Distribution Width CV 13.5 % (11.6-14.6); RBC Distribution Width SD 43.1 fl (35.1-43.9); Scan Indicated on CBC? Y/N NO; White Blood Count 7.5 K/mm3 (4.4-11.0)
[2017-10-04 08:23] LABS: Anion Gap 9 (5-15); BUN 12 mg/dL (7-18); BUN/Creat Ratio 17.3 RATIO (10-20); Calcium,Total 9.2 mg/dL (8.5-10.1); Chloride 109 mmol/L (98-107); Creatinine, Serum 0.69 mg/dL (0.55-1.02); EST Glomerular Filtration Rate 90 mL/min (>60); Est Glom Filt Rate - Afr Amer 108 mL/min (>60); Glucose 87 mg/dL (74-106); Potassium 4.1 mmol/L (3.5-5.1); Sodium Level 144 mmol/L (136-145)
== END ==
LOC: OLS.WHLTCC 05:00
PROVIDERS: Visit Provider Family Medicine
DX: E11.9 Type 2 diabetes mellitus without complications (principal); I10 Essential (primary) hypertension; E78.5 Hyperlipidemia, unspecified
CPT/HCPCS: 36415; 80048; 85027

== ENCOUNTER → 2018-01-06 11:18 | Outpatient (CLI) | payer MEDICARE, SELFPAY ==
--- NOTE | 2018-01-06 11:33 | RAD_ITS ---
STUDY: X-RAY - THORACIC SPINE REASON FOR EXAM: Female, 67 years old. Chronic back pain. TECHNIQUE: 2 view(s) of the thoracic spine were obtained. COMPARISON: 10/13/2014. FINDINGS: Normal kyphosis of the thoracic spine. There is no substantial scoliosis. Moderate old compression fractures of the T5 and T12 vertebral bodies are unchanged. Mild anterior wedging of the superior endplates of T6, T8 and T11 vertebral bodies are unchanged. Bridging of anterior marginal spurs at T10-T11 disc level. Normal disc space heights. The soft tissue structures are unremarkable. RAD/Thoracic Spine 3 Views IMPRESSION: 1. No acute fracture or acute osseous abnormality of the thoracic spine. 2. Multiple old compression fractures involving T5, T6, T8, T11 and T12 vertebral bodies. 3. No interval change when compared to 10/13/2014. Electronically Signed: Cade Pichardo MD at 13:41 EDT , Service support ,
--- NOTE | 2018-01-06 11:44 | RAD_ITS ---
STUDY: X-RAY - LUMBAR SPINE REASON FOR EXAM: Female, 67 years old. Chronic back pain. TECHNIQUE: 2 view(s) of the lumbar spine were obtained. COMPARISON: 10/13/2014. FINDINGS: Normal lumbar lordosis. There is no substantial scoliosis. There is a normal alignment of the vertebrae. Old operative T12 compression fracture is unchanged. Mild anterior wedging of the upper T11 vertebral body is also unchanged. Anterior marginal spurs at T11-12 disc level are now bridging. Mild deformity of the L2 and L3 superior endplates in the lateral view may be due to tilted positioning. They are unchanged. The vertebral endplates in the lumbar spine are otherwise normal. Normal vertebral bodies of the lumbar spine. Normal disc space heights. The soft tissue structures are unremarkable. RAD/Lumbar Spine 2 or 3 Views IMPRESSION: 1. Old compression fractures of the upper T11 and T12 vertebral bodies. 2. No acute osseous abnormality of the lumbar spine. 3. Bridging of the anterior marginal spurs at T10-T11 disc space level is the only new finding when compared to 10/13/2014. Electronically Signed: Cade Pichardo MD at 13:35 EDT , Service support ,
== END ==
PROVIDERS: Family Provider Internal Medicine; PCP Internal Medicine; Referring Provider Anesthesiology Pain Medicine; Visit Provider Anesthesiology Pain Medicine
DX: M54.6 Pain in thoracic spine (principal); M54.5 Low back pain
CPT/HCPCS: 72072; 72100

== ENCOUNTER → 2018-01-20 10:40 | Outpatient (CLI) | payer MEDICARE, SELFPAY ==
[2018-01-20 11:54] LABS: Amphetamine Urine VISTA NEGATIVE (<1000 ng/mL); Barbiturate Urine VISTA NEGATIVE (< 200 ng/mL); Benzodiazepine Urine VISTA NEGATIVE (< 200 ng/mL); Cocaine Urine VISTA NEGATIVE (< 300 ng/mL); Ecstacy Urine VISTA NEGATIVE (< 500 ng/mL); Methadone Urine VISTA NEGATIVE (< 300 ng/mL); PCP Urine VISTA NEGATIVE (< 25 ng/mL); THC Urine VISTA NEGATIVE (< 50 ng/mL); Vista UDS pH Range 6
== END ==
PROVIDERS: Family Provider Internal Medicine; PCP Internal Medicine; Referring Provider Anesthesiology Pain Medicine; Visit Provider Anesthesiology Pain Medicine
DX: F11.20 Opioid dependence, uncomplicated (principal)
CPT/HCPCS: 80307

== ENCOUNTER 2018-06-27 07:44 | Day surgery (SDC) | payer MEDICARE, SELFPAY ==
[2018-06-27] VITALS (7 sets, daily range): BP systolic 93–126; BP diastolic 54–82; PULSE 69–90; RESP 16–18; TEMP 36.2–37; O2SAT 92–97; BMI 37.3
[2018-06-27 09:15] LABS: Bedside Glucose 173 mg/dL (70-110)
--- NOTE | 2018-06-27 09:30 | RAD_ITS ---
CLINICAL HISTORY: Female, 68 years old. Low back pain. PROCEDURE: KYPHOPLASTY - T12 FLUOROSCOPY TIME (if supplied): (2:22) minutes/seconds. 7 coned-down intraoperative images were submitted. TECHNIQUE: (All elements of maximal sterile barrier technique followed, including US elements as applicable) Vertebroplasty of the T12 vertebra was performed by the pain management physician. RAD/Lumbar Spine 2 or 3 Views IMPRESSION: Successful vertebroplasty of the T12 vertebrae. Electronically Signed: Tomasz Johnson, at 15:20 EDT , Service support ,
[2018-06-27] MEDS: Bupiv/Epi 0.25% 30 ML Vial (11:05)
[2018-06-27 11:35] LABS: Bedside Glucose 133 mg/dL (70-110)
== END 2018-06-27 14:11 | disposition home or self-care (01) ==
LOC: SDC 07:51 → AC 07:52
PROVIDERS: Family Provider Internal Medicine; PCP Internal Medicine; Referring Provider Anesthesiology Pain Medicine; Visit Provider Anesthesiology Pain Medicine
PROC: (CPT 22513; principal; 2018-06-27 09:15)
DX: M80.08XA Age-related osteoporosis with current pathological fracture, vertebra(e), initial encounter for fracture (principal); I25.10 Atherosclerotic heart disease of native coronary artery without angina pectoris; E11.9 Type 2 diabetes mellitus without complications; J45.909 Unspecified asthma, uncomplicated; Z79.4 Long term (current) use of insulin; Z79.891 Long term (current) use of opiate analgesic; Z79.899 Other long term (current) drug therapy
CPT/HCPCS: 22513; 72100; 76000; 82962; J7120; J2405

== ENCOUNTER → 2018-07-01 11:24 | Outpatient (CLI) | payer MEDICARE, SELFPAY ==
[2018-06-27 08:29] VITALS: BMI 37.3
--- NOTE | 2018-07-01 11:27 | RAD_ITS ---
STUDY: X-RAY - CERVICAL SPINE REASON FOR EXAM: Female, 68 years old. Pain. No recent injury. TECHNIQUE: 3 view(s) of the cervical spine were obtained. COMPARISON: None FINDINGS: Normal anterior atlantoaxial articulation. Normal odontoid process. Normal cervical lordosis. There is multi-level endplate spondylosis. Normal disc space heights. Normal visualized intervertebral neuroforamina. The soft tissue structures are unremarkable. RAD/Cerv Spine 2 or 3 Views IMPRESSION: Spondylosis at the C3-C4 and C4-C5 levels. Electronically Signed: Tomasz Johnson, at 8:25 EDT , Service support ,
== END ==
PROVIDERS: Family Provider Internal Medicine; PCP Internal Medicine; Referring Provider Anesthesiology Pain Medicine; Visit Provider Anesthesiology Pain Medicine
DX: M54.2 Cervicalgia (principal)
CPT/HCPCS: 72040

== ENCOUNTER → 2018-09-11 12:57 | Outpatient (CLI) | payer MEDICARE, SELFPAY ==
[2018-06-27 08:29] VITALS: BMI 37.3
--- NOTE | 2018-09-11 13:28 | RAD_ITS ---
HISTORY: pain COMPARISON: Spot fluoroscopic image from June 27, 2018, and x-rays from January 06, 2018. FINDINGS: # of images incl. paperwork: 3 XR Spine Lumbar 2 or 3 Views: Vertebroplasty has been performed at the T12 level. This is new. Minimal rightward curvature to the thoracolumbar spine is slightly greater on today's study and could be positional. Superior endplate Schmorl's node invaginations at the L2 and L3 level of the same. Vertebral body height within the lumbar spine otherwise is preserved. The wedging to the L1 vertebral body is greater than the previous study. Disc height is minimally narrowed with a few small anterior enthesophytes that her to the same degree of severity as the previous study. No subluxations. Pelvic phleboliths. Calcifications within the abdominal aorta. Facets are adequately aligned. No acute fractures are perceived. RAD/Lumbar Spine 2 or 3 Views IMPRESSION: Interval vertebroplasty at T12. Mild degenerative disc disease. at [id number] Reported and signed by: Mason Mcdonnell MD Electronically Signed: Mason Mcdonnell MD at 3:57 EDT Tel , Service support ,
== END ==
PROVIDERS: Family Provider Internal Medicine; PCP Internal Medicine; Referring Provider Anesthesiology Pain Medicine; Visit Provider Anesthesiology Pain Medicine
DX: M54.5 Low back pain (principal)
CPT/HCPCS: 72100

== ENCOUNTER 2018-12-17 12:59 | Emergency (ER) | payer MEDICARE, MEDICAID, SELFPAY ==
[2018-06-27 08:29] VITALS: BMI 37.3
[2018-12-17 13:07] VITALS: BP 142/73; PULSE 98; RESP 16; TEMP 36.4; O2SAT 95; BMI 35.9
--- NOTE | 2018-12-17 13:31 | ED.RN ---
pt states that she has rt knee pain, varicose veins in bilat leg. she has a aure hose RX but has not filled it yet. c/o bilat arms and hands shaking, rt thumb shaking, lips and tongue shaking.
--- NOTE | 2018-12-17 14:02 | ED.DCSUM_ITS ---
History of Present Illness Chief Complaint: Weakness Detail of Chief Complaint: Generalized weakness and muscle twitching Informant: Patient Onset: Yesterday Current Severity: Mild Maximum Severity: Mild Narrative: Patient presents with generalized weakness that started yesterday. She states she has pain from her mid thighs to her ankles bilaterally. She describes it as a cramping and aching sensation. She has noted intermittent muscle twitches, and her thighs, left calf, and her right thumb. She does have a history of seizures and takes Keppra. Her last seizure was a year ago. She denies recent change to her medications. Past Medical History - Allergies and Home Meds Allergies/Adverse Reactions: Allergies cyclobenzaprine HCl [From Flexeril] Allergy (Verified 12/17/18 13:07) Other diphenhydramine HCl [From Benadryl] Allergy (Verified 12/17/18 13:07) Other doxepin Allergy (Verified 12/17/18 13:07) Other hydrocodone bitartrate [From Vicodin] Allergy (Verified 12/17/18 13:07) Vomiting Iodine and Iodide Containing Produc Allergy (Verified 12/17/18 13:07) Other Primary Care Physician: Jules Samayoa MD [Primary Care Provider] - Prior records reviewed: Yes Past Medical History: - - Reviewed Surgical History: no surgical history, noncontributory Smoking Status: Never smoker - Family History Maternal Family History: Reports: Cancer Paternal Family History: Reports: Asthma Review of Systems General: Denies: Chills, Fever Eyes: Denies: Visual changes - bilaterally ENT: Denies: Bilateral ear pain Cardiovascular: Denies: Chest pain, Palpitations Respiratory: Denies: Dyspnea, Cough Gastrointestinal: Denies: Abdominal pain, Nausea, Vomiting, Diarrhea Genitourinary: Denies: Dysuria Musculoskeletal: Reports: Extremity Pain. Denies: Back pain Neurological: Denies: Headache Hematologic: Denies: Easy bleeding Allergy: Denies: Uticaria Physical Exam Vital Signs/Narrative: Vital Signs Temp Pulse Resp BP Pulse Ox 12/17/18 13:07 97.5 F L 98 16 142/73 H 95 Inital Vital Signs reviewed: Yes General: Well nourished, Well developed Head: Normocephalic ENT: Moist mucous membranes Neck: Supple Cardiovascular: Regular rate, Regular rhythm Respiratory: No distress, CTA bilaterally Abdomen: Soft, Nontender Back: Nontender Extremities: Nontender, Edema - Mild chronic left leg edema around the ankle secondary to a prior fracture. Occasional, intermittent muscle twitching is noted in her left calf. Skin: Normal color Neurological: Alert, Oriented x3, Normal Strength, Normal Sensation Psychological: Normal affect Diagnostic/Tx/Re-eval Laboratory Results 12/17/18 12/17/18 12/17/18 14:16 14:16 14:16 WBC 9.0 RBC 4.32 Hgb 13.2 Hct 39.8 MCV 92.1 MCH 30.6 MCHC 33.2 RDW Std Deviation 40.9 RDW Coeff of Swati 12.3 Plt Count 178 MPV 9.2 Immature Gran % (Auto) 0.200 Neut % (Auto) 67.1 Lymph % (Auto) 23.9 [place] % (Auto) 6.1 Eos % (Auto) 1.9 Baso % (Auto) 0.8 Absolute Neuts (auto) 6.0 Absolute Lymphs (auto) 2.14 Nucleated RBC % 0 Sodium 140 Potassium 4.3 Chloride 108 H Carbon Dioxide 29.0 Anion Gap 3 L BUN 19 H Creatinine 0.92 Estim Creat Clear Calc 48.41 Est GFR (MDRD) Af Amer 78 Est GFR (MDRD) Non-Af 65 BUN/Creatinine Ratio 20.8 H Glucose 211 H Calcium 9.9 Magnesium 1.6 Urine Color Yellow Urine Clarity Sl. Cloudy Urine pH 6.0 Ur Specific [place] 1.015 Urine Protein 15 H Urine Glucose (UA) 50 H Urine Ketones Negative Urine Occult Blood Negative Urine Nitrite Negative Urine Bilirubin Negative Urine Urobilinogen Normal Ur Leukocyte Esterase Negative Urine RBC 0 SEEN Urine WBC 0 SEEN Ur Squamous Epith Cells 0-5 SEEN Urine Bacteria 0 SEEN Urine Mucus 0 SEEN - Medical Decision Making Patient had IV fluids while in the emergency room. Test results were discussed with her. At this time her electrolytes look okay. Her BUN is elevated when compared to prior visits. She states she will increase fluids over the next several days. She is countable with discharge back to her assisted living facility. ED Disposition - Plan for ED Patient: Disposition: Home or Assisted Living Diagnosis: Generalized weakness Instructions: WEAKNESS, Unk Cause Referrals: Jules Samayoa MD [Primary Care Provider] - 1 Week if not improving
[2018-12-17 14:25] LABS: Bacteria 0 SEEN /hpf (None Seen); Mucous, Urine 0 SEEN /hpf (<or=2+); Red Blood Cells-Urine 0 SEEN /hpf (0-5); White Blood Cells 0 SEEN /hpf (0-5)
[2018-12-17 14:26] LABS: Color, Urine Yellow (Yellow); Glucose, Dipstick 50 mg/dl (Normal); Ketone-Dipstick Negative (Negative); Leukocyte Esterase-Dipstick Negative /ul (Negative); Nitrite-Dipstick Negative (Negative); Occult Blood-Urine Negative /ul (Negative); Protein-Dipstick 15 mg/dl (Negative); Specific Gravity, Urine 1.015 (1.002-1.030); Urine Bilirubin Dipstick Negative (Negative); Urine Clarity Sl. Cloudy (Clear); Urine Urobilinogen Normal (Normal)
[2018-12-17 14:31] LABS: Absolute Lymphocyte Count 2.14 X10^3/uL (0.83-4.51); Basophil# 0.07 X10^3/uL; Basophil% 0.8 % (0-1); Eosinophil# 0.17 X10^3/uL; Eosinophils% 1.9 % (0-5); Hematocrit 39.8 % (37-47); Hemoglobin 13.2 g/dL (12.0-15.0); Lymphocyte # 2.14 X10^3/ul (4.0); Lymphocyte % 23.9 % (19-41); Mean Corp Hgb Conc 33.2 g/dL (32-36); Mean Corpuscular Hgb 30.6 pg (27.0-32.0); Mean Corpuscular Volume 92.1 fL (81-99); Mean Platelet Vol. 9.2 fl (6.2-12.0); Monocyte# 0.55 X10^3/uL; Monocyte% 6.1 % (0-10); NRBC Flagged by Analyzer 0 % (0-5); Neutrophil # 6.02 X10^3/uL (2.7-7.7); Neutrophil % 67.1 % (47-70); Platelet Count 178 K/mm3 (150-450); RBC Distribution Width CV 12.3 % (11.6-14.6); RBC Distribution Width SD 40.9 fl (35.1-43.9); Red Blood Count 4.32 M/mm3 (4.2-5.4); Squamous Epithelial Cells - UA 0-5 SEEN /hpf (5-10)
[2018-12-17 14:38] LABS: Anion Gap 3 (5-15); BUN 19 mg/dL (7-18); BUN/Creat Ratio 20.8 RATIO (10-20); Calcium,Total 9.9 mg/dL (8.5-10.1); Chloride 108 mmol/L (98-107); Creatinine, Serum 0.92 mg/dL (0.55-1.02); EST Glomerular Filtration Rate 65 mL/min (>60); Est Glom Filt Rate - Afr Amer 78 mL/min (>60); Estimated Creatinine Clearance 48.41 ml/min; Glucose 211 mg/dL (74-106); Magnesium 1.6 mg/dL (1.6-2.6); Potassium 4.3 mmol/L (3.5-5.1); Sodium Level 140 mmol/L (136-145)
[2018-12-17] MEDS: 0.9% Normal Saline 1,000 ML 150 ML IV (14:41)
== END 2018-12-17 16:00 | disposition home or self-care (01) ==
PROVIDERS: Emergency Provider Emergency Medicine; Family Provider Internal Medicine; PCP Internal Medicine
DX: R53.1 Weakness (principal); M79.604 Pain in right leg; M79.605 Pain in left leg; R25.3 Fasciculation; R60.0 Localized edema; G40.909 Epilepsy, unspecified, not intractable, without status epilepticus; Z79.899 Other long term (current) drug therapy
CPT/HCPCS: 80048; 81001; 83735; 85025; 96360; 96361; 99285; J7030; A4216

== ENCOUNTER → 2018-12-18 11:15 | Outpatient (CLI) | payer MEDICARE, MEDICAID, SELFPAY ==
[2018-12-17 13:07] VITALS: BMI 35.9
[2018-12-18 13:06] LABS: Amphetamine Urine VISTA NEGATIVE (<1000 ng/mL); Barbiturate Urine VISTA NEGATIVE (< 200 ng/mL); Benzodiazepine Urine VISTA NEGATIVE (< 200 ng/mL); Cocaine Urine VISTA NEGATIVE (< 300 ng/mL); Ecstacy Urine VISTA NEGATIVE (< 500 ng/mL); Methadone Urine VISTA NEGATIVE (< 300 ng/mL); PCP Urine VISTA NEGATIVE (< 25 ng/mL); THC Urine VISTA NEGATIVE (< 50 ng/mL); Vista UDS pH Range 6
== END ==
PROVIDERS: Family Provider Internal Medicine; PCP Internal Medicine; Referring Provider Anesthesiology Pain Medicine; Visit Provider Anesthesiology Pain Medicine
DX: F11.20 Opioid dependence, uncomplicated (principal)
CPT/HCPCS: 80307

== ENCOUNTER → 2018-12-26 10:39 | Outpatient (CLI) | payer MEDICARE, MEDICAID, SELFPAY ==
[2018-06-27 08:29] VITALS: BMI 37.3
[2018-12-17 13:07] VITALS: BMI 35.9
--- NOTE | 2018-12-26 10:41 | VDLE_ITS ---
Reason For Study: venous insuff RIGHT LEFT CFV is compressible, spontaneous, phasic, CFV is compressible, spontaneous, phasic, competent and demonstrates normal competent, and demonstrates normal augmentation. augmentation. FV is compressible, spontaneous, phasic, FV is compressible, spontaneous, phasic, competent and demonstrates normal competent and demonstrates normal augmentation. augmentation. POP V is compressible, spontaneous, phasic, POP V is compressible, spontaneous, phasic, competent and demonstrates normal competent and demonstrates normal augmentation. augmentation. T/P Trunk is compressible. T/P Trunk is compressible. PTV is compressible. PTV is compressible. RT PerV is compressible. LT PerV is compressible. SFJ is competent and measures .5 x .7 cm. SFJ is competent and measures .5 x .4 cm. GSV above knee is INCOMPETENT for greater GSV above knee is INCOMPETENT for greater than 0.5 seconds. than 0.5 seconds. GSV at knee measures .4 x .5 cm. GSV at knee measures .4 x .5 cm. GSV below knee is INCOMPETENT for greater GSV below knee is INCOMPETENT for greater than 0.5 seconds. than 0.5 seconds. SSV at junction is competent and measures .2 SSV at junction is competent and measures .2 x .2 cm. x .2 cm. Procedure Exam performed in department. Interpretation Summary 1. No DVT or SVT 2. Right GSV 5mm and reflux 3. Left GSV 5mm and reflux. Ordering Physician: Dwight Pete Referring Physician: Jules Samayoa M.D. Performed By: Ene Eller, LILIACS, RVT
== END ==
PROVIDERS: Family Provider Internal Medicine; PCP Internal Medicine; Referring Provider Surgery Vascular Surgery; Visit Provider Surgery Vascular Surgery
DX: I83.893 Varicose veins of bilateral lower extremities with other complications (principal); M79.89 Other specified soft tissue disorders; M79.609 Pain in unspecified limb
CPT/HCPCS: 93970

== ENCOUNTER 2019-03-28 08:04 | Emergency (ER) | payer MEDICARE, MEDICAID, SELFPAY ==
[2019-03-28 08:05] VITALS: BP 149/78; PULSE 82; RESP 18; TEMP 37.2; O2SAT 94; BMI 37.1
--- NOTE | 2019-03-28 08:26 | ED.DCSUM_ITS ---
History of Present Illness Chief Complaint: Nausea/Vomiting Informant: Patient Onset: Today Context: Sudden Onset Timing: Intermittent Quality: Dizziness with nausea and vomiting Location: Not applicable Current Severity: - - None Maximum Severity: Severe - Movement of head and change in position Worsened by: Movement of head and change in position Relieved by: Remaining still and closing her eyes Associated Symptoms: Spinning sensation Narrative: Patient is a 69-year-old woman with multiple medical problems who presents with dizziness which she describes as her head spinning with change in position and movement of her head. This is associated with nausea vomiting. She has 4 episodes of emesis. There was no blood or coffee grounds in the emesis. When asked if she has diplopia as she states she is had diplopia for years. She stat es that secondary to epilepsy. She denies fever, chills night sweats. Denies headache. She has trouble with speech or swallowing. She does have tingling in her extremities secondary to diabetic neuropathy. She denies cardiac respiratory symptoms. Prior similar symptoms: No Recent Illness/Hospitalization: No - Past Medical History (1) Seizure disorder Status: Acute (2) History of type 1 diabetes mellitus Status: Acute (3) History of diabetic neuropathy Status: Acute (4) History of hypertension Status: Acute (5) History of hyperactive airway disease Status: Acute Past Medical History - Allergies and Home Meds Allergies/Adverse Reactions: Allergies cyclobenzaprine HCl [From Flexeril] Allergy (Verified 03/28/19 08:13) Other diphenhydramine HCl [From Benadryl] Allergy (Verified 03/28/19 08:13) Other doxepin Allergy (Verified 03/28/19 08:13) Other hydrocodone bitartrate [From Vicodin] Allergy (Verified 03/28/19 08:13) Vomiting Iodine and Iodide Containing Produc Allergy (Verified 03/28/19 08:13) Other Primary Care Physician: Jules Samayoa MD [Primary Care Provider] - Prior records reviewed: Yes Surgical History: no surgical history, noncontributory Lives: [facility] Smoking Status: Never smoker Alcohol: None Drugs: None - Family History Maternal Family History: Reports: Cancer Paternal Family History: Reports: Asthma Review of Systems General: Denies: Chills, Fever, Malaise, Sweats Eyes: Reports: Diplopia. Denies: Visual changes - bilaterally, Blurred Vision - bilaterally ENT: Denies: Bilateral ear pain, Rhinorrhea, Sore throat Respiratory: Denies: Dyspnea, Cough, Dyspnea on exertion Gastrointestinal: Reports: Nausea, Vomiting. Denies: Abdominal pain, Diarrhea, Constipation, Melena, Hematochezia, -, - Genitourinary: Denies: Dysuria, Hematuria, Frequency Musculoskeletal: Denies: Myalgias, Arthralgias, Neck pain, Back pain, Swelling, Extremity Pain, -, - Skin: Denies: Rash, Wounds Neurological: Denies: Headache, Weakness, Parasthesia, Numbness Hematologic: Denies: Easy bruising, Easy bleeding Allergy: Denies: Uticaria, Swelling of the mouth Physical Exam Vital Signs/Narrative: Vital Signs Temp Pulse Resp BP Pulse Ox 03/28/19 08:05 98.9 F 82 18 149/78 H 94 Inital Vital Signs reviewed: Yes General: Well nourished, Well developed, No Acute Distress Head: Normocephalic, Atraumatic Eyes: Perrl, EOMI. Negative for: Pale conjunctiva, Scleral icterus ENT: Moist mucous membranes, No rhinorrhea Neck: Supple, Nontender Cardiovascular: Regular rate, Regular rhythm, No murmurs, Normal S1, Normal S2 Respiratory: No distress, CTA bilaterally, Chest nontender Abdomen: Soft, Nontender, Nondistended, Normal bowel sounds Back: Nontender, Normal Inspection Extremities: Nontender, No edema Skin: Normal color, No rash, No Trauma. Negative for: Cyanosis, Diaphoresis, Jaundice Neurological: Alert, Oriented x3, Cranial nerves II-XII grossly intact, Normal Strength, Normal Sensation, Normal DTR - There is no clonus or Babinski sign., - - The eye askew test and the hint test were negative. Juan-Hallpike maneuver was positive with head to the left with nystagmus noted. Psychological: Normal affect, Normal Mood Diagnostic/Tx/Re-eval Laboratory Results 03/28/19 03/28/19 08:21 08:21 WBC 8.0 RBC 4.39 Hgb 13.5 Hct 39.3 MCV 89.5 MCH 30.8 MCHC 34.4 RDW Std Deviation 40.9 RDW Coeff of Swati 12.5 Plt Count 174 MPV 9.1 Immature Gran % (Auto) 0.500 Neut % (Auto) 72.0 H Lymph % (Auto) 20.2 [place] % (Auto) 4.8 Eos % (Auto) 1.6 Baso % (Auto) 0.9 Absolute Neuts (auto) 5.8 Absolute Lymphs (auto) 1.61 Nucleated RBC % 0 Sodium 143 Potassium 3.7 Chloride 106 Carbon Dioxide 29.0 Anion Gap 8 BUN 12 Creatinine 0.84 Estim Creat Clear Calc 54.58 Est GFR (MDRD) Af Amer 86 Est GFR (MDRD) Non-Af 71 BUN/Creatinine Ratio 14.3 Glucose 177 H Calcium 9.9 CBC is unremarkable. Basic metabolic panel is remarkable for an elevated glucose of 177. She does have history of type 1 diabetes. - Medical Decision Making Patient's history and physical with positive Juan-Hallpike maneuver suggestive of benign paroxysmal positional vertigo. She received 4 mg of Zofran for the nausea and vomiting. Will perform Christ maneuver. Because she is elderly not a good informant with both medical problems basic blood work was obtained to assess electrolyte, renal function and CBC. She was able to ambulate without difficulty. She no longer has symptoms. Plan is to discharge to home. Procedures Procedure(s): Christ maneuver. Patient was informed based on her history and physical she has benign paroxysmal positional vertigo. She tolerated Christ maneuver. She only had symptoms with head turned to the left. Nystagmus fatigued and her symptoms resolved. Plan is to ambulate. If patient able to ambulate without symptoms will discharge to home/custodial. ED Disposition - Plan for ED Patient: Disposition: Long Term Facility Diagnosis: Benign paroxysmal positional vertigo, Hyperglycemia due to type 1 diabetes mellitus Instructions: Benign Positional Vertigo Referrals: Jules Samayoa MD [Primary Care Provider] - As Needed
[2019-03-28] MEDS: Ondansetron 4 MG/2 ML Vial IV (08:33)
[2019-03-28 08:47] LABS: Absolute Lymphocyte Count 1.61 X10^3/uL (0.83-4.51); Absolute Neutrophil Count 5.8 X10^3/uL (2.0-7.7); Basophil# 0.07 X10^3/uL; Basophil% 0.9 % (0-1); Eosinophil# 0.13 X10^3/uL; Eosinophils% 1.6 % (0-5); Hematocrit 39.3 % (37-47); Hemoglobin 13.5 g/dL (12.0-15.0); Lymphocyte # 1.61 X10^3/ul (4.0); Lymphocyte % 20.2 % (19-41); Mean Corp Hgb Conc 34.4 g/dL (32-36); Mean Corpuscular Hgb 30.8 pg (27.0-32.0); Mean Corpuscular Volume 89.5 fL (81-99); Mean Platelet Vol. 9.1 fl (6.2-12.0); Monocyte# 0.38 X10^3/uL; Monocyte% 4.8 % (0-10); NRBC Flagged by Analyzer 0 % (0-5); Neutrophil # 5.75 X10^3/uL (2.7-7.7); Platelet Count 174 K/mm3 (150-450); RBC Distribution Width CV 12.5 % (11.6-14.6); RBC Distribution Width SD 40.9 fl (35.1-43.9); Red Blood Count 4.39 M/mm3 (4.2-5.4)
[2019-03-28 08:57] LABS: Anion Gap 8 (5-15); BUN 12 mg/dL (7-18); BUN/Creat Ratio 14.3 RATIO (10-20); Calcium,Total 9.9 mg/dL (8.5-10.1); Chloride 106 mmol/L (98-107); Creatinine, Serum 0.84 mg/dL (0.55-1.02); EST Glomerular Filtration Rate 71 mL/min (>60); Est Glom Filt Rate - Afr Amer 86 mL/min (>60); Estimated Creatinine Clearance 54.58 ml/min; Glucose 177 mg/dL (74-106); Potassium 3.7 mmol/L (3.5-5.1); Sodium Level 143 mmol/L (136-145)
[2019-03-28 09:24] VITALS: BP 142/78; PULSE 80; RESP 22; O2SAT 97
--- NOTE | 2019-03-28 09:32 | NURSING ---
Doctor performed manuever.
--- NOTE | 2019-03-28 09:34 | NURSING ---
gave d/c report ot the nurse at [facility]
== END 2019-03-28 09:50 | disposition skilled nursing facility (03) ==
PROVIDERS: Emergency Provider Emergency Medicine; Family Provider Internal Medicine; PCP Internal Medicine
DX: H81.10 Benign paroxysmal vertigo, unspecified ear (principal); E10.65 Type 1 diabetes mellitus with hyperglycemia; E10.40 Type 1 diabetes mellitus with diabetic neuropathy, unspecified; I10 Essential (primary) hypertension; G40.909 Epilepsy, unspecified, not intractable, without status epilepticus; Z79.4 Long term (current) use of insulin
CPT/HCPCS: 95992; 80048; 85025; 96374; 99285; A4216; J2405

== ENCOUNTER 2019-04-19 05:10 | Emergency (ER) | payer MEDICARE, MEDICAID, SELFPAY ==
[2019-04-19 05:11] VITALS: BP 136/76; PULSE 80; RESP 18; TEMP 36.8; O2SAT 98; BMI 38.9
--- NOTE | 2019-04-19 05:34 | CT_ITS ---
STUDY: CT BRAIN WITHOUT CONTRAST REASON FOR EXAM: Female, 69 years old. VERTIGO,WOKE UP FEELING CRAPPY -- HX:SEIZURES,DIABETES.HTN RADIATION DOSAGE (If Supplied By Facility): CTDIvol = ( 44.99 ) mGy, DLP = ( 829.85 ) mGycm TECHNIQUE: Transaxial CT imaging of the brain was performed without administration of intravenous contrast material. Individualized dose optimization techniques were used for this CT. COMPARISON: May 13, 2017 FINDINGS: Normal soft tissue structures. Normal calvarium. There is mild cerebral atrophy with widening of the extra-axial spaces and ventricular dilatation. There are areas of decreased attenuation within the white matter tracts of the supratentorial brain, consistent with microvascular disease changes. Carotid and vertebral artery calcifications. Normal basal ganglia and thalami. Normal brainstem. There is mild cerebellar atrophy. There is no intracranial hemorrhage. There are no findings of an acute ischemic infarction. Chronic opacification left sphenoid sinus. CT/Brain/Head without Contrast IMPRESSION: Chronic involutional and white matter changes. No acute territorial infarct or intracranial hemorrhage identified. If patient''s symptomology persists or there is continuing clinical concern MRI or follow-up CT scan can be performed. Electronically Signed: Klaus Shaffer, at 6:43 EST Tel , Service support ,
--- NOTE | 2019-04-19 05:35 | EKG12_ITS ---
Test Reason : DYSRYTHMIA Blood Pressure : / mmHG Vent. Rate : 072 BPM Atrial Rate : 072 BPM P-R Int : 168 ms QRS Dur : 076 ms QT Int : 364 ms P-R-T Axes : 021 024 033 degrees QTc Int : 398 ms Normal sinus rhythm Normal ECG Confirmed by MARCIE MALDONADO, NADEEM ([id number]), acquisitions editor BETHANY REYES ([id number]) on 04/21/2019 11:22:28 AM Referred By: OLGA Confirmed By:NDAEEM JACK MD
--- NOTE | 2019-04-19 05:36 | RAD_ITS ---
STUDY: X-RAY CHEST REASON FOR EXAM: Female, 69 years old. COUGH X 2 + WEEKS TECHNIQUE: Frontal and lateral views of the chest. COMPARISON: 04/20 12/07. FINDINGS: The lungs are clear and expanded. There is no demonstrated pleural abnormality. Normal size heart. Normal mediastinum and jay. Normal visualized pulmonary arteries. Normal visualized aortic arch and descending thoracic aorta. There are multilevel degenerative changes of the visualized thoracic spine.. There is a mild compression fracture deformity of the T12 vertebral body, with overlying kyphoplasty cement. Normal visualized ribs, clavicles, and shoulders. There is no demonstrated abnormality of the visualized soft tissue structures of the upper abdomen. RAD/Chest PA and Lateral IMPRESSION: No evidence for acute cardiopulmonary pathology. Electronically Signed: Antony Cowan MD at 6:42 EST , Service support ,
--- NOTE | 2019-04-19 05:37 | ED.DCSUM_ITS ---
History of Present Illness Chief Complaint: General Illness Informant: Patient Onset: Hours - 1 Context: Onset with activity - woke up w/ sx Timing: Continuous Quality: see below Current Severity: Moderate Maximum Severity: Moderate Narrative: Patient states she woke up feeling poorly. She states she felt a little dizzy like things were moving when she stood up, but before that she felt tingly in both of her feet and states that her legs from her knees to her toes felt bad and she could not explain it but after we discussed it, she thinks they feel cramping and restless. She states that she felt okay when she went to bed. She denies headache, shortness of breath, abdominal pain, nausea, vomiting, diarrhea, bleeding from anywhere abnormal lately, swelling in her legs, lightheadedness or near syncope, ear pain, recent upper respiratory infection, ear discharge, or tinnitus. She has noticed that her vision has been more blurry in the last 3 or 4 weeks, but nothing new this morning. She states she has had vertigo occasionally in the past. - Past Medical History (1) Seizure disorder Status: Chronic (2) History of type 1 diabetes mellitus Status: Chronic (3) History of diabetic neuropathy Status: Chronic (4) History of hypertension Status: Chronic (5) History of hyperactive airway disease Status: Chronic Past Medical History - Allergies and Home Meds Allergies/Adverse Reactions: Allergies cyclobenzaprine HCl [From Flexeril] Allergy (Verified 04/19/19 05:17) Other diphenhydramine HCl [From Benadryl] Allergy (Verified 04/19/19 05:17) Other doxepin Allergy (Verified 04/19/19 05:17) Other hydrocodone bitartrate [From Vicodin] Allergy (Verified 04/19/19 05:17) Vomiting Iodine and Iodide Containing Produc Allergy (Verified 04/19/19 05:17) Other Primary Care Physician: Jules Samayoa MD [Primary Care Provider] - Surgical History: no surgical history, noncontributory Lives: - - Assisted living Smoking Status: Never smoker - Family History Maternal Family History: Reports: Cancer Paternal Family History: Reports: Asthma Review of Systems General: Reports: Malaise. Denies: Chills, Fever, Sweats Eyes: Denies: Visual changes - bilaterally, Diplopia ENT: Denies: Rhinorrhea, Sore throat Cardiovascular: Denies: Chest pain, Palpitations Respiratory: Reports: Cough - Chronic, unchanged along with sputum, Sputum - Clear. Denies: Dyspnea, Dyspnea on exertion Gastrointestinal: Denies: Abdominal pain, Nausea, Vomiting, Diarrhea, Melena, Hematochezia Genitourinary: Denies: Dysuria, Hematuria, Frequency Musculoskeletal: Reports: Extremity Pain. Denies: Neck pain, Back pain, Swelling Skin: Denies: Rash, Wounds Neurological: Reports: Parasthesia - Both legs/feet, - - Vertigo. See HPI.. Denies: Headache, Weakness Physical Exam Vital Signs/Narrative: Vital Signs Temp Pulse Resp BP Pulse Ox 04/19/19 05:11 98.3 F 80 18 136/76 H 98 Inital Vital Signs reviewed: Yes General: Well nourished, Well developed, Obese, No Acute Distress Head: Normocephalic, Atraumatic Eyes: Perrl, EOMI ENT: Moist mucous membranes, No rhinorrhea, TM's clear. Negative for: Nasal congestion, Sinus tenderness Neck: Supple, Nontender, No lymphadenopathy, No JVD Cardiovascular: Regular rate, Regular rhythm, No murmurs Respiratory: No distress, CTA bilaterally, Chest nontender, Diminished - Throughout, symmetrically Abdomen: Soft, Nontender, Nondistended, Normal bowel sounds Back: Nontender, Normal Inspection Extremities: Nontender, No edema Skin: Normal color, No rash Neurological: Alert, Oriented x3, Cranial nerves II-XII grossly intact - No facial asymmetry or facial droop or altered sensation, Normal Strength, Normal DTR, Parasthesia - Both legs, left a little worse than the right subjectively according to the patient Psychological: Normal affect, Normal Mood Diagnostic/Tx/Re-eval Impressions Brain CT 04/19/19 05:34 IMPRESSION: Chronic involutional and white matter changes. No acute territorial infarct or intracranial hemorrhage identified. If patient''s symptomology persists or there is continuing clinical concern MRI or follow-up CT scan can be performed. Electronically Signed: Klaus Shaffer, at 6:43 EST Tel , Service support , Chest X-Ray 04/19/19 05:36 IMPRESSION: No evidence for acute cardiopulmonary pathology. Electronically Signed: Antony Cowan MD at 6:42 EST , Service support , 04/19/19 05:34 Brain/Head without Contrast [CT] Stat 04/19/19 05:36 Chest PA and Lateral [RAD] Stat Laboratory Results 04/19/19 04/19/19 04/19/19 05:53 06:00 06:00 WBC 7.1 RBC 4.53 Hgb 13.9 Hct 40.8 MCV 90.1 MCH 30.7 MCHC 34.1 RDW Std Deviation 42.0 RDW Coeff of Swati 12.8 Plt Count 177 MPV 9.3 Immature Gran % (Auto) 0.300 Neut % (Auto) 64.9 Lymph % (Auto) 24.1 [place] % (Auto) 6.4 Eos % (Auto) 3.5 Baso % (Auto) 0.8 Absolute Neuts (auto) 4.6 Absolute Lymphs (auto) 1.70 Nucleated RBC % 0 Sodium 141 Potassium 4.2 Chloride 108 H Carbon Dioxide 26.0 Anion Gap 7 BUN 11 Creatinine 0.79 Estim Creat Clear Calc 43.92 Est GFR (MDRD) Af Amer 93 Est GFR (MDRD) Non-Af 77 BUN/Creatinine Ratio 14.0 Glucose 148 H Calcium 10.0 Troponin I < 0.015 Urine Color Straw Urine Clarity Clear Urine pH 6.5 Ur Specific [place] 1.010 Urine Protein Negative Urine Glucose (UA) Normal Urine Ketones Negative Urine Occult Blood Negative Urine Nitrite Negative Urine Bilirubin Negative Urine Urobilinogen Normal Ur Leukocyte Esterase Negative Urine RBC 0 SEEN Urine WBC 0 SEEN Ur Squamous Epith Cells 0-5 SEEN Urine Bacteria RARE Urine Mucus 0 SEEN POC Glucose 04/19/19 06:03 WBC RBC Hgb Hct MCV MCH MCHC RDW Std Deviation RDW Coeff of Swati Plt Count MPV Immature Gran % (Auto) Neut % (Auto) Lymph % (Auto) [place] % (Auto) Eos % (Auto) Baso % (Auto) Absolute Neuts (auto) Absolute Lymphs (auto) Nucleated RBC % Sodium Potassium Chloride Carbon Dioxide Anion Gap BUN Creatinine Estim Creat Clear Calc Est GFR (MDRD) Af Amer Est GFR (MDRD) Non-Af BUN/Creatinine Ratio Glucose Calcium Troponin I Urine Color Urine Clarity Urine pH Ur Specific [place] Urine Protein Urine Glucose (UA) Urine Ketones Urine Occult Blood Urine Nitrite Urine Bilirubin Urine Urobilinogen Ur Leukocyte Esterase Urine RBC Urine WBC Ur Squamous Epith Cells Urine Bacteria Urine Mucus POC Glucose 153 H - Rhythm Strip Rhythm Strip: Sinus Rhythm Rate: 72 Ectopy: None - EKG Initial EKG Interpretation: Sinus Rhythm, No Acute Injury Pattern - Normal EKG - Medical Decision Making As above, her work-up was unremarkable. She felt a little better after Antivert. She had a mildly positive Mcgraw-Hallpike to the left but no symptoms to the right. She had no abnormal nystagmus, no vertical or rotatory or non- fatigable nystagmus. Her paresthesias are in both legs. I do not think this is stroke. Her metabolic and infectious work-up is also unremarkable. She is well-appearing and I feel she can go back to assisted living to follow-up with her doctor if her symptoms persist. I will start her on Mirapex for restless legs to see if that helps her, after we discussed possible treatments of her symptoms, which admittedly are vague. ED Disposition - Plan for ED Patient: Disposition: Home or Assisted Living Diagnosis: Peripheral vertigo, unspecified, Restless legs Instructions: Understanding Restless Legs Syndrome Prescriptions: Meclizine HCl [Antivert] 25 mg PO TID PRN PRN #16 tab PRN Reason: Dizziness Prescription Printed Pramipexole Di-HCl [Mirapex] 0.125 mg PO QHS #14 tab Prescription Printed Referrals: Jules Samayoa MD [Primary Care Provider] - 3-5 Days if not improving
[2019-04-19] MEDS: Meclizine HCl 25 MG Tablet PO (06:04)
[2019-04-19 06:05] LABS: Bedside Glucose 153 mg/dL (70-110)
[2019-04-19 06:16] LABS: Mucous, Urine 0 SEEN /hpf (<or=2+); Red Blood Cells-Urine 0 SEEN /hpf (0-5); White Blood Cells 0 SEEN /hpf (0-5)
[2019-04-19 06:19] LABS: Absolute Neutrophil Count 4.6 X10^3/uL (2.0-7.7); Basophil# 0.06 X10^3/uL; Basophil% 0.8 % (0-1); Eosinophil# 0.25 X10^3/uL; Eosinophils% 3.5 % (0-5); Hematocrit 40.8 % (37-47); Hemoglobin 13.9 g/dL (12.0-15.0); Lymphocyte % 24.1 % (19-41); Mean Corp Hgb Conc 34.1 g/dL (32-36); Mean Corpuscular Hgb 30.7 pg (27.0-32.0); Mean Corpuscular Volume 90.1 fL (81-99); Mean Platelet Vol. 9.3 fl (6.2-12.0); Monocyte# 0.45 X10^3/uL; Monocyte% 6.4 % (0-10); NRBC Flagged by Analyzer 0 % (0-5); Neutrophil # 4.58 X10^3/uL (2.7-7.7); Neutrophil % 64.9 % (47-70); Platelet Count 177 K/mm3 (150-450); RBC Distribution Width CV 12.8 % (11.6-14.6); Red Blood Count 4.53 M/mm3 (4.2-5.4); White Blood Count 7.1 K/mm3 (4.4-11.0)
[2019-04-19 06:27] LABS: Color, Urine Straw (Yellow); Glucose, Dipstick Normal (Normal); Ketone-Dipstick Negative (Negative); Leukocyte Esterase-Dipstick Negative /ul (Negative); Nitrite-Dipstick Negative (Negative); Occult Blood-Urine Negative /ul (Negative); Protein-Dipstick Negative (Negative); Urine Bilirubin Dipstick Negative (Negative); Urine Clarity Clear (Clear); Urine Urobilinogen Normal (Normal); Urine pH 6.5 (5.0 - 8.0)
[2019-04-19 06:30] LABS: Anion Gap 7 (5-15); BUN 11 mg/dL (7-18); Chloride 108 mmol/L (98-107); Creatinine, Serum 0.79 mg/dL (0.55-1.02); EST Glomerular Filtration Rate 77 mL/min (>60); Est Glom Filt Rate - Afr Amer 93 mL/min (>60); Estimated Creatinine Clearance 43.92 ml/min; Glucose 148 mg/dL (74-106); Potassium 4.2 mmol/L (3.5-5.1); Sodium Level 141 mmol/L (136-145)
[2019-04-19 06:33] LABS: Squamous Epithelial Cells - UA 0-5 SEEN /hpf (5-10)
[2019-04-19 06:34] LABS: Bacteria RARE /hpf (None Seen)
[2019-04-19 07:10] VITALS: BP 143/74; PULSE 76; RESP 18; O2SAT 96
[2019-04-19] MEDS: Pramipexole Di-HCl 0.125 MG Tablet PO (07:37)
== END 2019-04-19 08:00 | disposition home or self-care (01) ==
PROVIDERS: Emergency Provider Emergency Medicine; PCP Internal Medicine
DX: H81.399 Other peripheral vertigo, unspecified ear (principal); G25.81 Restless legs syndrome; I10 Essential (primary) hypertension; E10.40 Type 1 diabetes mellitus with diabetic neuropathy, unspecified; G40.909 Epilepsy, unspecified, not intractable, without status epilepticus; E66.9 Obesity, unspecified; Z68.38 Body mass index [BMI] 38.0-38.9, adult; Z79.4 Long term (current) use of insulin
CPT/HCPCS: 70450; 71046; 80048; 81001; 82962; 84484; 85025; 93005; 96360; 99285; J7040; A4216

== ENCOUNTER 2019-08-22 04:34 | Emergency (ER) | payer MEDICARE, MEDICAID, SELFPAY ==
[2019-08-22 04:34] VITALS: BP 144/69; PULSE 70; RESP 18; TEMP 36.7; O2SAT 96; BMI 40.1
--- NOTE | 2019-08-22 04:52 | ED.VIS.GEN ---
History of Present Illness Chief Complaint: Lower Extremity Injury Informant: Patient Narrative: She stated she is having discomfort in her right knee. She stated that started yesterday. No specific injury. Hurts to move her knee and walk on it. She is never had problems with this knee before. Nothing that she can remember brought it on. Current severity is mild to moderate. Difficulty sleeping last night secondary to throbbing in her knee. Worsened by movement. Relieved by rest and ice. She did not take anything for it. She does not hurt in her hip or distal area of her leg she is noticed no redness or warmth - Past Medical History (1) Closed left ankle fracture Status: Acute (2) Left ankle pain Status: Acute (3) History of diabetic neuropathy Status: Chronic (4) History of hyperactive airway disease Status: Chronic (5) History of hypertension Status: Chronic (6) History of type 1 diabetes mellitus Status: Chronic (7) Seizure disorder Status: Chronic Past Medical History - Allergies and Home Meds Allergies/Adverse Reactions: Allergies cyclobenzaprine HCl [From Flexeril] Allergy (Verified 04/19/19 05:17) Other diphenhydramine HCl [From Benadryl] Allergy (Verified 04/19/19 05:17) Other doxepin Allergy (Verified 04/19/19 05:17) Other hydrocodone bitartrate [From Vicodin] Allergy (Verified 04/19/19 05:17) Vomiting Iodine and Iodide Containing Produc Allergy (Verified 04/19/19 05:17) Other Primary Care Physician: Jules Samayoa MD [Primary Care Provider] - Prior records reviewed: Yes Past Medical History: - - See problem list Surgical History: no surgical history, noncontributory Smoking Status: Never smoker Alcohol: None Drugs: None - Family History Maternal Family History: Reports: Cancer Paternal Family History: Reports: Asthma Review of Systems General: Denies: Chills, Fever, Sweats Eyes: Denies: Visual changes - bilaterally, Diplopia ENT: Denies: Rhinorrhea, Sore throat Cardiovascular: Denies: Chest pain, Palpitations Respiratory: Denies: Dyspnea, Cough, Dyspnea on exertion Gastrointestinal: Denies: Abdominal pain, Nausea, Vomiting, Diarrhea, Melena, Hematochezia Genitourinary: Denies: Dysuria, Hematuria, Frequency Musculoskeletal: Reports: Extremity Pain. Denies: Back pain Skin: Denies: Rash, Wounds Neurological: Denies: Headache, Weakness, Numbness Physical Exam Vital Signs/Narrative: Vital Signs Temp Pulse Resp BP Pulse Ox 08/22/19 04:34 98.0 F 70 18 144/69 H 96 General: Well nourished, Well developed, No Acute Distress Head: Normocephalic, Atraumatic Eyes: Perrl, EOMI ENT: Moist mucous membranes, No rhinorrhea Neck: Supple, Nontender Cardiovascular: Regular rate, Regular rhythm, No murmurs Respiratory: No distress, CTA bilaterally, Chest nontender Abdomen: Soft, Nontender, Nondistended, Normal bowel sounds Back: Nontender, Normal Inspection Extremities: Tenderness - Tenderness in the right knee diffusely. Decreased range of motion of the knee secondary to pain. Very mild suprapatellar effusion. No redness or warmth. Unable to assess ligament secondary to pain in the knee with range of motion.. Negative for: Nontender, No edema Skin: Normal color, No rash Neurological: Alert, Oriented x3, Cranial nerves II-XII grossly intact, Normal Strength, Normal Sensation Psychological: Normal affect, Normal Mood Diagnostic/Tx/Re-eval - Medical Decision Making Given injection of morphine and ice pack. X-ray of the knee obtained. X-ray shows no fractures. There is mild joint effusion. I do not suspect she has a septic knee or gouty knee. It is not warm. I do not feel it needs tapped at this time. Perhaps she had a ligament sprain or injury. She noticed that yesterday morning. I feel she can follow-up as an outpatient. Given injection of Kenalog to help with the inflammatory nature of her knee pain. She will be given a short course of pain medicine for home. Will she will be given Garry wrap and follow-up with orthopedics ED Disposition - Plan for ED Patient: Disposition: Home or Assisted Living Diagnosis: Right knee pain Instructions: ED Knee Pain [facility] Prescriptions: traMADol [Ultram] 50 mg PO Q4H PRN PRN 3 Days #20 tab PRN Reason: Pain Prescription Printed Referrals: Delfin Landeros DO [STAFF PHYSICIAN] -
[2019-08-22] MEDS: Morphine 2 MG/ML Syringe IM (05:01)
--- NOTE | 2019-08-22 05:10 | RAD_ITS ---
STUDY: X-RAY - RIGHT KNEE REASON FOR EXAM: Female, 69 years old. RT ANTERIOR KNEE PAIN STARTED 2 DAYS AGO, NO KNOWN INJURY TECHNIQUE: 4 view(s) of the knee. COMPARISON: None. FINDINGS: There is demineralization of the visualized distal femur. Adjacent to the distal femur and the medial femoral condyle there is a focus of age indeterminant calcific fragment suggesting Zoya-Stieda lesion age indeterminant. Normal proximal tibiofibular articulation. There is moderate degenerative arthrosis of the medial femorotibial compartment with moderate joint space narrowing. There is mild degenerative arthrosis of the lateral femorotibial compartment. There is mild degenerative arthrosis of the patellofemoral articulation. There is a moderate volume joint effusion. The soft tissue structures are unremarkable. 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 Soft tissue edema. Small to moderate joint effusion. Arthrosis of the left knee. Could consider follow-up MRI if appropriate. Electronically Signed: Adore Mike MD at 5:51 EDT Tel , Service support ,
[2019-08-22] MEDS: Triamcinolone Acetonide 40 MG/ML Vial IM (06:39)
[2019-08-22 06:44] VITALS: BP 140/70; PULSE 68; RESP 16; O2SAT 99
== END 2019-08-22 07:45 | disposition home or self-care (01) ==
PROVIDERS: Emergency Provider Emergency Medicine; PCP Internal Medicine
DX: M25.561 Pain in right knee (principal); I10 Essential (primary) hypertension; E10.40 Type 1 diabetes mellitus with diabetic neuropathy, unspecified; G40.909 Epilepsy, unspecified, not intractable, without status epilepticus; Z79.4 Long term (current) use of insulin
CPT/HCPCS: 73564; 96372; 99283

== ENCOUNTER → 2019-09-28 09:19 | Outpatient (CLI) | payer MEDICARE, MEDICAID, SELFPAY ==
[2019-09-28 10:34] LABS: Amphetamine Urine VISTA NEGATIVE (<1000 ng/mL); Barbiturate Urine VISTA NEGATIVE (< 200 ng/mL); Benzodiazepine Urine VISTA NEGATIVE (< 200 ng/mL); Cocaine Urine VISTA NEGATIVE (< 300 ng/mL); Ecstacy Urine VISTA NEGATIVE (< 500 ng/mL); Methadone Urine VISTA NEGATIVE (< 300 ng/mL); PCP Urine VISTA NEGATIVE (< 25 ng/mL); THC Urine VISTA NEGATIVE (< 50 ng/mL); Vista UDS pH Range 6
== END ==
PROVIDERS: PCP Internal Medicine; Referring Provider Anesthesiology Pain Medicine; Visit Provider Anesthesiology Pain Medicine
DX: F11.20 Opioid dependence, uncomplicated (principal)
CPT/HCPCS: 80307

== ENCOUNTER 2019-10-10 02:05 | Emergency (ER) | payer MEDICARE, MEDICAID, SELFPAY ==
[2019-10-10 02:06] VITALS: BP 134/84; PULSE 80; RESP 14; TEMP 37; O2SAT 95; BMI 43.0
--- NOTE | 2019-10-10 02:12 | CT_ITS ---
HISTORY: HEADACHE AND RIGHT THUMB TWITCHING. H/O SEIZURES TECHNIQUE: Multiple axial images were obtained of the brain without intravenous contrast. A radiation dose optimization technique was used for this scan. COMPARISON: 04/19/2019 FINDINGS: No significant change. Mild central and cortical cerebral atrophy. Stable decreased attenuation of the periventricular and deep white matter compatible with small vessel chronic ischemic change. White matter decreased attenuation is greatest at the left trigone and posterior left periventricular region. No intracranial mass, hemorrhage, or acute parenchymal abnormality. Posterior fossa structures are unremarkable. No suspicious extra-axial fluid collection. Stable sclerosis and opacification of the left mastoid air cells. Chronic opacification of the left sphenoid sinus. CT/Brain/Head without Contrast IMPRESSION: 1. No intracranial hemorrhage or acute intracranial disease. No significant interval change. 2. Chronic changes, as above. Individualized dose optimization techniques were used for this CT. at 0358 Reported and signed by: Gerry Sandy MD Electronically Signed: Gerry Sandy at 3:57 EDT Tel , Service support ,
--- NOTE | 2019-10-10 02:24 | ED.DCSUM_ITS ---
History of Present Illness Chief Complaint: Headache Informant: Patient Onset: Today Narrative: 69-year-old female presents with concern for headache. States that she woke up approximately 4 hours ago with a headache. Describes it as occipital and nonradiating. Intermittent. Not maximal at onset. Aching. Denies any vision change, neck pain, nausea, vomiting, fever, chills. Patient also states that she has shaking of her right hand. States that she has had shaking of both of her hands for many years. Patient states that she does have epilepsy and has been taking her Keppra as prescribed. Denies any chest pain, shortness of breath, urinary symptoms. Patient lives at a local assisted living facility. Brought in by EMS. Past Medical History - Allergies and Home Meds Allergies/Adverse Reactions: Allergies cyclobenzaprine HCl [From Flexeril] Allergy (Verified 10/10/19 02:11) Other diphenhydramine HCl [From Benadryl] Allergy (Verified 10/10/19 02:11) Other doxepin Allergy (Verified 10/10/19 02:11) Other hydrocodone bitartrate [From Vicodin] Allergy (Verified 10/10/19 02:11) Vomiting Iodine and Iodide Containing Produc Allergy (Verified 10/10/19 02:11) Other Primary Care Physician: Jules Samayoa MD [Primary Care Provider] - Past Medical History: - - Hypertension, diabetes, seizure disorder Surgical History: no surgical history, noncontributory Lives: [facility] Smoking Status: Never smoker Alcohol: None Drugs: None - Family History Maternal Family History: Reports: Cancer Paternal Family History: Reports: Asthma Review of Systems General: Denies: Chills, Fever, Sweats Eyes: Denies: Visual changes - bilaterally, Diplopia ENT: Denies: Rhinorrhea, Sore throat Cardiovascular: Denies: Chest pain, Palpitations Respiratory: Denies: Dyspnea, Cough, Dyspnea on exertion Gastrointestinal: Denies: Abdominal pain, Nausea, Vomiting, Diarrhea, Melena, Hematochezia Genitourinary: Denies: Dysuria, Hematuria, Frequency Musculoskeletal: Denies: Back pain, Extremity Pain Skin: Denies: Rash, Wounds Neurological: Reports: Headache, - - Tremor. Denies: Weakness, Numbness Physical Exam Vital Signs/Narrative: Vital Signs Temp Pulse Resp BP Pulse Ox 10/10/19 02:06 98.6 F 80 14 134/84 H 95 Inital Vital Signs reviewed: Yes General: Well nourished, Well developed, No Acute Distress Head: Normocephalic, Atraumatic Eyes: Perrl, EOMI ENT: Moist mucous membranes, No rhinorrhea Neck: Supple, Nontender Cardiovascular: Regular rate, Regular rhythm, No murmurs Respiratory: No distress, CTA bilaterally, Chest nontender Abdomen: Soft, Nontender, Nondistended, Normal bowel sounds Back: Nontender, Normal Inspection Extremities: Nontender, No edema Skin: Normal color, No rash Neurological: Alert, Oriented x3, Cranial nerves II-XII grossly intact, Normal Strength, Normal Sensation, - - Bilateral resting tremors. Worse on the right. Psychological: Normal affect, Normal Mood Diagnostic/Tx/Re-eval Clinical Impression(s) from Imaging Studies Brain CT 10/10/19 02:12 IMPRESSION: 1. No intracranial hemorrhage or acute intracranial disease. No significant interval change. 2. Chronic changes, as above. Individualized dose optimization techniques were used for this CT. at 0358 Reported and signed by: Gerry Sandy MD Electronically Signed: Gerry Sandy, at 3:57 EDT Tel , Service support , Laboratory Data 10/10/19 10/10/19 02:25 02:25 WBC 7.5 RBC 4.29 Hgb 13.4 Hct 40.7 MCV 94.9 MCH 31.2 MCHC 32.9 RDW Std Deviation 44.0 H RDW Coeff of Swati 12.9 Plt Count 160 MPV 8.8 Immature Gran % (Auto) 0.300 Neut % (Auto) 64.4 Lymph % (Auto) 22.9 [place] % (Auto) 8.2 Eos % (Auto) 3.3 Baso % (Auto) 0.9 Absolute Neuts (auto) 4.8 Absolute Lymphs (auto) 1.71 Nucleated RBC % 0 Sodium 140 Potassium 4.4 Chloride 109 H Carbon Dioxide 25.0 Anion Gap 6 BUN 18 Creatinine 0.81 Estim Creat Clear Calc 47.08 Est GFR (MDRD) Af Amer 90 Est GFR (MDRD) Non-Af 75 BUN/Creatinine Ratio 22.3 H Glucose 181 H Calcium 9.5 - Medical Decision Making Patient appears well nontoxic. No focal neurologic deficit. CT brain negative. Lab work within normal limits. Given fluid bolus and Zofran. Patient has resolution of her headache. We will follow-up with her primary care provider and neurologist as needed. Asked to return for new or worsening symptoms. Discharged home in stable condition. ED Disposition - Plan for ED Patient: Disposition: Home or Assisted Living Diagnosis: Headache, Tremor Instructions: ED Headache Unspecified Referrals: Jules Samayoa MD [Primary Care Provider] -
[2019-10-10] MEDS: Ondansetron 4 MG/2 ML Vial IV (02:25)
[2019-10-10] MEDS: 0.9% Normal Saline 1,000 ML 1000 ML IV (02:25)
[2019-10-10 02:34] LABS: Absolute Lymphocyte Count 1.71 X10^3/uL (0.83-4.51); Absolute Neutrophil Count 4.8 X10^3/uL (2.0-7.7); Basophil# 0.07 X10^3/uL; Basophil% 0.9 % (0-1); Eosinophil# 0.25 X10^3/uL; Eosinophils% 3.3 % (0-5); Hematocrit 40.7 % (37-47); Hemoglobin 13.4 g/dL (12.0-15.0); Lymphocyte # 1.71 X10^3/ul (4.0); Lymphocyte % 22.9 % (19-41); Mean Corp Hgb Conc 32.9 g/dL (32-36); Mean Corpuscular Hgb 31.2 pg (27.0-32.0); Mean Corpuscular Volume 94.9 fL (81-99); Mean Platelet Vol. 8.8 fl (6.2-12.0); Monocyte# 0.61 X10^3/uL; Monocyte% 8.2 % (0-10); NRBC Flagged by Analyzer 0 % (0-5); Neutrophil # 4.81 X10^3/uL (2.7-7.7); Neutrophil % 64.4 % (47-70); Platelet Count 160 K/mm3 (150-450); RBC Distribution Width CV 12.9 % (11.6-14.6); Red Blood Count 4.29 M/mm3 (4.2-5.4); White Blood Count 7.5 K/mm3 (4.4-11.0)
[2019-10-10 02:47] LABS: Anion Gap 6 (5-15); BUN 18 mg/dL (7-18); BUN/Creat Ratio 22.3 RATIO (10-20); Calcium,Total 9.5 mg/dL (8.5-10.1); Chloride 109 mmol/L (98-107); Creatinine, Serum 0.81 mg/dL (0.55-1.02); EST Glomerular Filtration Rate 75 mL/min (>60); Est Glom Filt Rate - Afr Amer 90 mL/min (>60); Estimated Creatinine Clearance 47.08 ml/min; Glucose 181 mg/dL (74-106); Potassium 4.4 mmol/L (3.5-5.1); Sodium Level 140 mmol/L (136-145)
[2019-10-10 04:16] VITALS: BP 140/80; PULSE 78; RESP 16; O2SAT 95
== END 2019-10-10 04:17 | disposition home or self-care (01) ==
PROVIDERS: Emergency Provider Emergency Medicine; PCP Internal Medicine
DX: R51 Headache (principal); G40.909 Epilepsy, unspecified, not intractable, without status epilepticus; I10 Essential (primary) hypertension; E11.9 Type 2 diabetes mellitus without complications; Z79.4 Long term (current) use of insulin; Z79.899 Other long term (current) drug therapy
CPT/HCPCS: 70450; 80048; 85025; 96361; 96374; 99285; J7030; A4216; J2405

== ENCOUNTER → 2019-11-25 09:27 | Outpatient (CLI) | payer MEDICARE, MEDICAID, SELFPAY ==
--- NOTE | 2019-11-25 09:40 | RAD_ITS ---
STUDY: X-RAY - CERVICAL SPINE REASON FOR EXAM: Female, 69 years old. PAIN TECHNIQUE: 3 view(s) of the cervical spine were obtained. COMPARISON: Previous study of 07/01/2018 FINDINGS: Normal anterior atlantoaxial articulation. Normal odontoid process. Normal cervical lordosis. There is endplate spondylosis of C3 and C4. Normal disc space heights. The soft tissue structures are unremarkable. RAD/Cerv Spine 2 or 3 Views IMPRESSION: Endplate spondylosis of C3 and C4. No evidence of fracture or subluxation. Disc spacing is preserved. Findings are similar to the previous study. Electronically Signed: Jani Harrington MD at 17:13 EDT , Service support ,
== END ==
PROVIDERS: PCP Internal Medicine; Referring Provider Anesthesiology Pain Medicine; Visit Provider Anesthesiology Pain Medicine
DX: M47.812 Spondylosis without myelopathy or radiculopathy, cervical region (principal)
CPT/HCPCS: 72040

== ENCOUNTER → 2020-05-19 11:04 | Outpatient (CLI) | payer MEDICARE, MEDICAID, SELFPAY ==
[2020-05-19 13:39] LABS: Amphetamine Urine VISTA NEGATIVE (<1000 ng/mL); Barbiturate Urine VISTA NEGATIVE (< 200 ng/mL); Benzodiazepine Urine VISTA NEGATIVE (< 200 ng/mL); Cocaine Urine VISTA NEGATIVE (< 300 ng/mL); Ecstacy Urine VISTA NEGATIVE (< 500 ng/mL); Methadone Urine VISTA NEGATIVE (< 300 ng/mL); PCP Urine VISTA NEGATIVE (< 25 ng/mL); THC Urine VISTA NEGATIVE (< 50 ng/mL); Vista UDS pH Range 6
== END ==
PROVIDERS: PCP Internal Medicine; Referring Provider Anesthesiology Pain Medicine; Visit Provider Anesthesiology Pain Medicine
DX: F11.20 Opioid dependence, uncomplicated (principal)
CPT/HCPCS: 80307

== ENCOUNTER 2021-01-15 18:31 | Emergency (ER) | payer MEDICARE, MEDICAID, SELFPAY ==
[2021-01-15 18:34] VITALS: BP 169/80; PULSE 90; RESP 13; TEMP 36.9; O2SAT 97; BMI 39.6
--- NOTE | 2021-01-15 18:48 | EKG12_ITS ---
Test Reason : CP Blood Pressure : / mmHG Vent. Rate : 090 BPM Atrial Rate : 090 BPM P-R Int : 170 ms QRS Dur : 064 ms QT Int : 336 ms P-R-T Axes : 030 025 048 degrees QTc Int : 411 ms Normal sinus rhythm Normal ECG Confirmed by MARCIE MALDONADO, NADEEM ([id number]), editorial intern IMELDA JOSE ([id number]) on 01/17/2021 9:19:32 AM Referred By: ER PHYS Confirmed By:NADEEM JACK MD
[2021-01-15 18:57] LABS: Absolute Lymphocyte Count 2.89 X10^3/uL (0.83-4.51); Absolute Neutrophil Count 5.8 X10^3/uL (2.0-7.7); Basophil# 0.07 X10^3/uL; Basophil% 0.7 % (0-1); Eosinophil# 0.15 X10^3/uL; Eosinophils% 1.6 % (0-5); Hematocrit 41.5 % (37-47); Hemoglobin 14.1 g/dL (12.0-15.0); Lymphocyte # 2.89 X10^3/ul (0.83-4.51); Lymphocyte % 29.9 % (19-41); Mean Corpuscular Hgb 30.1 pg (27.0-32.0); Mean Corpuscular Volume 88.7 fL (81-99); Mean Platelet Vol. 9.4 fl (6.2-12.0); Monocyte% 7.3 % (0-10); NRBC Flagged by Analyzer 0 % (0-5); Neutrophil # 5.81 X10^3/uL (2.7-7.7); Neutrophil % 60.2 % (47-70); Platelet Count 224 K/mm3 (150-450); RBC Distribution Width SD 39.3 fl (35.1-43.9); Red Blood Count 4.68 M/mm3 (4.2-5.4); White Blood Count 9.7 K/mm3 (4.4-11.0)
--- NOTE | 2021-01-15 18:57 | RAD_ITS ---
STUDY: X-RAY CHEST REASON FOR EXAM: Female, 71 years old. chest pain TECHNIQUE: Frontal portable view of the chest COMPARISON: 29 April 2019 FINDINGS: The lungs are clear and expanded. There is no demonstrated pleural abnormality. Normal size heart. Normal mediastinum and jay. Normal visualized pulmonary arteries. Normal visualized aortic arch and descending thoracic aorta. Normal visualized thoracic spine. Normal visualized ribs, clavicles, and shoulders. There is no demonstrated abnormality of the visualized soft tissue structures of the upper abdomen. RAD/Chest 1 View (Portable) IMPRESSION: Normal x-ray examination of the chest. Electronically Signed: Matthew Madera MD at 19:06 EDT Tel , Service support ,
[2021-01-15 18:58] VITALS: O2SAT 97
[2021-01-15] MEDS: Aspirin 81 MG TAB.CHEW 324 MG PO (18:59)
[2021-01-15 19:11] LABS: Anion Gap 10 (5-15); BUN 14 mg/dL (7-18); BUN/Creat Ratio 13.7 RATIO (10-20); Calcium,Total 10.2 mg/dL (8.5-10.1); Chloride 106 mmol/L (98-107); Creatinine, Serum 1.02 mg/dL (0.55-1.02); EST Glomerular Filtration Rate 57 mL/min (>60); Est Glom Filt Rate - Afr Amer 69 mL/min (>60); Estimated Creatinine Clearance 38.17 ml/min; Glucose 235 mg/dL (74-106); Sodium Level 141 mmol/L (136-145); Troponin-I HS 8 pg/mL (3.0-54.0)
--- NOTE | 2021-01-15 19:11 | ED.VIS.CHEST ---
HPI History of Present Illness Chief Complaint: Chest Pain Informant: patient Narrative Narrative: Presents with left-sided chest pain states sharp in nature on and off for the past few weeks. States last no more than 2 minutes. Denies dyspnea nausea diaphoresis. States had pain in her right shoulder previously. No history of MIs. Denies history of heart catheter stress test. History of diabetes hypertension seizure disorder. Denies tobacco. Denies family history of MIs at young age. Denies recent travel, surgery, or immobilizations. No history of PE or DVT. Currently symptoms are mild. She states chronic cough. Prior Similar Symptoms: No PFSH PFSH Medical History Asthma Diabetes High cholesterol Hypertension Neuropathy Psychotic affective disorder Seizures Vertigo Home Medications Tresiba FlexTouch U-100 80 unit SQ QHS 04/29/17 [History Last Taken 05/21/17] gabapentin 800 mg PO TIDCM 04/29/17 [History Last Taken 06/27/18 06:00] insulin aspart U-100 [Novolog U-100 Insulin aspart] 0 unit SQ TID 04/29/17 [History Last Taken 05/22/17] levetiracetam 1,500 mg PO BID 04/29/17 [History Last Taken 06/27/18 06:00] losartan 100 mg PO QHS 04/29/17 [History Last Taken 05/31/17 06:00 50 MG] guaifenesin [Mucinex] 1,200 mg PO BID 06/20/18 [History Last Taken Unknown] montelukast 10 mg PO QHS 06/20/18 [History Last Taken Unknown] Ziprasidone Hcl [Geodon] 40 mg PO BID 08/22/19 [History Last Taken Unknown] atorvastatin 10 mg PO QHS 08/22/19 [History Last Taken Unknown] acetaminophen 500 mg PO Q4H PRN PRN 01/15/21 [History Last Taken Unknown] albuterol 2 mcg INHALATION Q6H PRN PRN 01/15/21 [History Last Taken Unknown] cholecalciferol (vitamin D3) 125 mcg PO DAILY 01/15/21 [History Last Taken Unknown] fluticasone furoate 2 mcg INHALATION DAILY PRN PRN 01/15/21 [History Last Taken Unknown] hydrocodone-acetaminophen 1 tab PO BID PRN 01/15/21 [History Last Taken Unknown] hydrocodone-acetaminophen 1 tab PO DAILY PRN PRN 01/15/21 [History Last Taken Unknown] meclizine 25 mg PO TID PRN 01/15/21 [History Last Taken Unknown] polyethylene glycol 3350 [Gavilax] 17 g PO DAILY 01/15/21 [History Last Taken Unknown] pramipexole 1.5 mg PO QHS 01/15/21 [History Last Taken Unknown] sennosides-docusate sodium [Senexon-S] 2 tab-cap PO DAILY PRN PRN 01/15/21 [History Last Taken Unknown] Allergy/AdvReac Type Severity Reaction Status Date / Time cyclobenzaprine HCl Allergy Other Verified 01/15/21 18:43 [From Flexeril] diphenhydramine HCl Allergy Other Verified 01/15/21 18:43 [From Benadryl] doxepin Allergy Other Verified 01/15/21 18:43 hydrocodone bitartrate Allergy Vomiting Verified 01/15/21 18:43 [From Vicodin] Iodine and Iodide Containing Allergy Other Verified 01/15/21 18:43 Produc Surgical History no surgical history Social History Smoking Status: Never smoker ROS ROS ED Constitutional Constitutional ED: Denies chills, fever(s) or sweats Eyes Eyes: Denies change in vision ENT ENT ED: Denies dysphagia or sore throat Cardiovascular Cardiovascular: Reports chest pain; Denies leg edema, palpitations or racing heartbeat Respiratory/Chest Respiratory/Chest: Reports cough; Denies dyspnea or dyspnea on exertion Gastrointestinal Gastrointestinal: Denies abdominal pain, diarrhea, nausea or vomiting Genitourinary Genitourinary ED: Denies dysuria, hematuria or urinary frequency Musculoskeletal Musculoskeletal: Denies back pain, extremity pain or neck pain Integumentary Denies rash or wounds Neurologic Neurologic: Denies headache(s), paresthesias or weakness EXAM Physical Exam Const Vital Signs: 01/15/21 18:34 01/15/21 18:58 01/15/21 19:13 Temperature 98.4 F Temperature Source Oral Pulse Rate 90 Respiratory Rate 13 Respiratory Effort Normal Non-Labored Blood Pressure 169/80 H Blood Pressure Mean 109 Pulse Ox 97 97 Oxygen Delivery Method Room Air Room Air 01/15/21 19:32 01/15/21 20:32 01/15/21 21:32 Temperature Temperature Source Pulse Rate 83 79 79 Respiratory Rate 16 16 16 Respiratory Effort Blood Pressure 147/81 H 157/79 H 147/76 H Blood Pressure Mean 103 105 99 Pulse Ox 98 97 97 Oxygen Delivery Method Room Air Room Air Room Air 01/15/21 21:43 Temperature Temperature Source Pulse Rate 71 Respiratory Rate 16 Respiratory Effort Blood Pressure 139/74 H Blood Pressure Mean Pulse Ox 97 Oxygen Delivery Method Positive well nourished and well developed General Appearance ED: well developed and NAD HEENT Reports moist mucous membranes normocephalic and atraumatic Eyes PERRL, EOMs intact bilaterally and conjunctivae normal General Eye ED: Yes normal appearance of both eyes Neck no lymphadenopathy and supple General: Negative for tenderness Chest Wall Chest Narrative: Reproducible left-sided chest wall tenderness there is no rash. No crepitus. Chest: tenderness Resp normal respiratory effort and normal air movement Effort and Inspection: symmetric chest movement; Negative for respiratory distress Cardio regular rate, regular rhythm and no murmurs Peripheral Pulses: pulses 2+ throughout GI normal to inspection, nondistended, normoactive bowel sounds and non-tender Palpation: Negative for guarding or rebound tenderness present Back/Spine no CVA tenderness and no thoracic nor lumbar tenderness Extremity normal to inspection General Extremety ED: Negative for edema or tenderness General Extremity: Negative for edema Neuro oriented x3 and no sensory deficits noted Sensorium / Orientation: awake and alert Skin no rashes or lesions noted and no wounds Heart Score History: Slightly/Non-Suspicious ECG: Normal Age: >/= 65 years Risk Factors: >/= 3 Risk Factors or History of CAD Troponin: </= Normal Limit Score: 4 MDM MDM MDM Narrative Medical decision making narrative: Patient intermittent chest pains past 2 weeks. EKG cardiac work-up negative. Heart score is a 4. However to negative high sensitive troponins. Symptoms improved proved in the ED. Should urine frequency in the ED urine obtain negative for infection. Glucose 235 with history of diabetes. Anion gap is 10. She is discharged with outpatient follow-up. Return precautions. All questions were answered. Lab Data Attestation: I reviewed the patient's lab results. Labs: Laboratory Results - last 24 hr 01/15/21 01/15/21 01/15/21 18:20 18:20 18:49 WBC 9.7 RBC 4.68 Hgb 14.1 Hct 41.5 MCV 88.7 MCH 30.1 MCHC 34.0 RDW Std Deviation 39.3 RDW Coeff of Swati 12.0 Plt Count 224 MPV 9.4 Immature Gran % (Auto) 0.300 Neut % (Auto) 60.2 Lymph % (Auto) 29.9 [place] % (Auto) 7.3 Eos % (Auto) 1.6 Baso % (Auto) 0.7 Absolute Neuts (auto) 5.8 Absolute Lymphs (auto) 2.89 Nucleated RBC % 0 Sodium 141 Potassium 4.0 Chloride 106 Carbon Dioxide 25.0 Anion Gap 10 BUN 14 Creatinine 1.02 Estim Creat Clear Calc 38.17 Est GFR (MDRD) Af Amer 69 Est GFR (MDRD) Non-Af 57 L BUN/Creatinine Ratio 13.7 Glucose 235 H Calcium 10.2 H Troponin I High Sens 8 Urine Color Yellow Urine Clarity Clear Urine pH 7.0 Ur Specific [place] 1.010 Urine Protein 15 H Urine Glucose (UA) 250 H Urine Ketones Negative Urine Occult Blood Negative Urine Nitrite Negative Urine Bilirubin Negative Urine Urobilinogen Normal Ur Leukocyte Esterase Negative Urine RBC 0 SEEN Urine WBC 0 SEEN Ur Squamous Epith Cells 0-5 SEEN Urine Bacteria 0 SEEN Urine Mucus 0 SEEN 01/15/21 20:20 WBC RBC Hgb Hct MCV MCH MCHC RDW Std Deviation RDW Coeff of Swati Plt Count MPV Immature Gran % (Auto) Neut % (Auto) Lymph % (Auto) [place] % (Auto) Eos % (Auto) Baso % (Auto) Absolute Neuts (auto) Absolute Lymphs (auto) Nucleated RBC % Sodium Potassium Chloride Carbon Dioxide Anion Gap BUN Creatinine Estim Creat Clear Calc Est GFR (MDRD) Af Amer Est GFR (MDRD) Non-Af BUN/Creatinine Ratio Glucose Calcium Troponin I High Sens 8 Urine Color Urine Clarity Urine pH Ur Specific [place] Urine Protein Urine Glucose (UA) Urine Ketones Urine Occult Blood Urine Nitrite Urine Bilirubin Urine Urobilinogen Ur Leukocyte Esterase Urine RBC Urine WBC Ur Squamous Epith Cells Urine Bacteria Urine Mucus Radiography Chest X-Ray - ED: 1 View, Read by ED Physician and Read by Radiologist Diagnostic Testing: Clinical Impression(s) from Imaging Studies Chest X-Ray 01/15/21 18:57 IMPRESSION: Normal x-ray examination of the chest. Electronically Signed: Matthew Madera MD at 19:06 EDT Tel , Service support , Discharge Plan Triage Chief Complaint: Chest Pain ED Provider: David Harrison Dx/Rx/DC Orders Clinical Impression: Chest pain, History of type 1 diabetes mellitus Instructions: ED Chest Pain, Uncertain Cause Prescriptions: No Action gabapentin 800 MG tablet 800 mg PO TIDCM RF: 0 insulin aspart U-100 [Novolog U-100 Insulin aspart] 100 UNIT/ML solution 0 unit SQ TID RF: 0 levetiracetam 750 MG tablet 1,500 mg PO BID RF: 0 losartan 100 MG tablet 100 mg PO QHS RF: 0 Tresiba FlexTouch U-100 100 UNIT/ML insulin pen 80 unit SQ QHS RF: 0 montelukast 10 MG tablet 10 mg PO QHS RF: 0 Mucus Relief ER 1,200 MG tablet 1,200 mg PO BID RF: 0 atorvastatin 10 MG tablet 10 mg PO QHS RF: 0 Ziprasidone Hcl [Geodon] 40 MG capsule 40 mg PO BID RF: 0 polyethylene glycol 3350 [Gavilax] 17 gram Powder In Packet 17 g PO DAILY RF: 0 hydrocodone-acetaminophen 5-325 mg Tablet 1 tab PO BID PRN (Reason: Pain) RF: 0 hydrocodone-acetaminophen 5-325 mg Tablet 1 tab PO DAILY PRN PRN (Reason: Pain) RF: 0 sennosides-docusate sodium [Senexon-S] 8.6-50 mg Tablet 2 tab-cap PO DAILY PRN PRN (Reason: Constipation) RF: 0 acetaminophen 500 mg Tablet 500 mg PO Q4H PRN PRN (Reason: PAIN/FEVER) RF: 0 meclizine 25 mg Tablet 25 mg PO TID PRN (Reason: Dizziness) RF: 0 albuterol 90 mcg/actuation Aerosol 2 mcg INHALATION Q6H PRN PRN (Reason: SOB) RF: 0 cholecalciferol (vitamin D3) 125 mcg (5,000 unit) Tablet 125 mcg PO DAILY RF: 0 fluticasone furoate 50 mcg/actuation Blister With Device 2 mcg INHALATION DAILY PRN PRN (Reason: Congestion) RF: 0 pramipexole 0.125 MG tablet 1.5 mg PO QHS RF: 0 Primary Care Provider: Jules Samayoa Referrals: Jules Samayoa MD [Primary Care Provider] - 3-5 Days Disposition Disposition: Home, Self Care Discharge Date/Time: 01/15/21 21:43
[2021-01-15 19:32] VITALS: BP 147/81; PULSE 83; RESP 16; O2SAT 98
[2021-01-15 19:50] LABS: Bacteria 0 SEEN /hpf (None Seen); Color, Urine Yellow (Yellow); Glucose, Dipstick 250 mg/dl (Normal); Ketone-Dipstick Negative (Negative); Leukocyte Esterase-Dipstick Negative /ul (Negative); Mucous, Urine 0 SEEN /hpf (<or=2+); Nitrite-Dipstick Negative (Negative); Occult Blood-Urine Negative /ul (Negative); Protein-Dipstick 15 mg/dl (Negative); Red Blood Cells-Urine 0 SEEN /hpf (0-5); Urine Bilirubin Dipstick Negative (Negative); Urine Clarity Clear (Clear); Urine Urobilinogen Normal (Normal); White Blood Cells 0 SEEN /hpf (0-5)
[2021-01-15 19:57] LABS: Squamous Epithelial Cells - UA 0-5 SEEN /hpf (5-10)
[2021-01-15 20:32] VITALS: BP 157/79; PULSE 79; RESP 16; O2SAT 97
[2021-01-15 20:49] LABS: Troponin-I HS 8 pg/mL (3.0-54.0)
[2021-01-15] MEDS: HYDROcodone Bitartrate/Apap 5/325 Tablet PO (21:10)
[2021-01-15] MEDS: guaiFENesin 1,200 MG Tablet 1200 MG PO (21:15)
[2021-01-15] MEDS: levETIRAcetam 500 MG Tablet 1500 MG PO (21:15)
[2021-01-15 21:32] VITALS: BP 147/76; PULSE 79; RESP 16; O2SAT 97
[2021-01-15 21:43] VITALS: BP 139/74; PULSE 71; RESP 16; O2SAT 97
== END 2021-01-15 21:43 | disposition home or self-care (01) ==
PROVIDERS: Emergency Provider Emergency Medicine; PCP Internal Medicine
DX: R07.9 Chest pain, unspecified (principal); E10.40 Type 1 diabetes mellitus with diabetic neuropathy, unspecified; I10 Essential (primary) hypertension; E78.00 Pure hypercholesterolemia, unspecified; J45.909 Unspecified asthma, uncomplicated; G40.909 Epilepsy, unspecified, not intractable, without status epilepticus; F39 Unspecified mood [affective] disorder; Z79.4 Long term (current) use of insulin; Z79.899 Other long term (current) drug therapy
CPT/HCPCS: 71045; 80048; 81001; 84484; 85025; 93005; 99285

== ENCOUNTER 2021-05-28 12:58 | Emergency (ER) | payer MEDICARE, MEDICAID, SELFPAY ==
[2021-05-28 12:59] VITALS: BP 142/78; PULSE 93; RESP 15; TEMP 36.2; O2SAT 97; BMI 39.2
[2021-05-28 13:06] VITALS: BP 122/02; PULSE 87; RESP 14; O2SAT 97
--- NOTE | 2021-05-28 13:08 | ED.RN ---
Pt repetitive in nature, increased confusion. Continues to state I have this one med I take and it's lost, unsure which medication. Friend also states she has home health nurse who gives her her medications.
--- NOTE | 2021-05-28 13:10 | CT_ITS ---
STUDY: CT BRAIN WITHOUT CONTRAST REASON FOR EXAM: Female, 71 years old. confusion RADIATION DOSAGE (If Supplied By Facility): CTDIvol = ( 44.99 ) mGy, DLP = ( 812.98 ) mGycm TECHNIQUE: Transaxial CT imaging of the brain was performed without administration of intravenous contrast material. Individualized dose optimization techniques were used for this CT. COMPARISON: 10/10/2019 FINDINGS: Normal soft tissue structures. Normal calvarium. There is mild cerebral atrophy with widening of the extra-axial spaces and ventricular dilatation. There are areas of decreased attenuation within the white matter tracts of the supratentorial brain, consistent with microvascular disease changes. Normal basal ganglia and thalami. Normal brainstem. Normal cerebellum. There is no intracranial hemorrhage. There are no findings of an acute ischemic infarction. Normal visualized paranasal sinuses. CT/Brain/Head without Contrast IMPRESSION: Chronic involutional changes of the brain. Electronically Signed: Gelacio Lai MD at 14:06 EST ,
--- NOTE | 2021-05-28 13:10 | EKG12_ITS ---
Test Reason : NEURO Blood Pressure : / mmHG Vent. Rate : 087 BPM Atrial Rate : 087 BPM P-R Int : 170 ms QRS Dur : 068 ms QT Int : 332 ms P-R-T Axes : 017 034 040 degrees QTc Int : 399 ms Normal sinus rhythm Normal ECG Confirmed by MARCIE MALDONADO, NADEEM ([id number]), newspaper or periodical editor IMELDA JOSE ([id number]) on 05/30/2021 11:01:56 AM Referred By: SAPPHIRE Confirmed By:NADEEM JACK MD
--- NOTE | 2021-05-28 13:11 | EX.ED.DYSGE1 ---
HPI History of Present Illness Chief Complaint: Confusion Detail of Chief Complaint: Increased confusion today Informant: patient and friend Narrative Narrative: Patient presents to the emergency department with complaint of increased confusion today. Patient apparently called her friend and asked her to bring her in. Patient apparently has been without her medications and has not taken them in several months but is supposed to have a visiting nurse to give her meds. Per friend she is not remembering things and seems more disoriented today than usual. Patient denies any falls or head injuries. She denies chest pain or shortness of breath. She denies recent illness. Patient does have prior history of psychosis. Patient's friend states that she has had some issues with confusion in the past but today seems to be the most severe. Prior similar symptoms: Yes PFSH PFSH Medical History Asthma Diabetes High cholesterol Hypertension Neuropathy Psychotic affective disorder Seizures Vertigo Home Medications Tresiba FlexTouch U-100 80 unit SQ QHS 04/29/17 [History Last Taken 05/21/17] gabapentin 800 mg PO TIDCM 04/29/17 [History Last Taken 06/27/18 06:00] insulin aspart U-100 [Novolog U-100 Insulin aspart] 0 unit SQ TID 04/29/17 [History Last Taken 05/22/17] levetiracetam 1,500 mg PO BID 04/29/17 [History Last Taken 06/27/18 06:00] losartan 100 mg PO QHS 04/29/17 [History Last Taken 05/31/17 06:00 50 MG] guaifenesin [Mucinex] 1,200 mg PO BID 06/20/18 [History Last Taken Unknown] montelukast 10 mg PO QHS 06/20/18 [History Last Taken Unknown] Ziprasidone Hcl [Geodon] 40 mg PO BID 08/22/19 [History Last Taken Unknown] atorvastatin 10 mg PO QHS 08/22/19 [History Last Taken Unknown] acetaminophen 500 mg PO Q4H PRN PRN 01/15/21 [History Last Taken Unknown] albuterol 2 mcg INHALATION Q6H PRN PRN 01/15/21 [History Last Taken Unknown] cholecalciferol (vitamin D3) 125 mcg PO DAILY 01/15/21 [History Last Taken Unknown] fluticasone furoate 2 mcg INHALATION DAILY PRN PRN 01/15/21 [History Last Taken Unknown] hydrocodone-acetaminophen 1 tab PO BID PRN 01/15/21 [History Last Taken Unknown] hydrocodone-acetaminophen 1 tab PO DAILY PRN PRN 01/15/21 [History Last Taken Unknown] meclizine 25 mg PO TID PRN 01/15/21 [History Last Taken Unknown] polyethylene glycol 3350 [Gavilax] 17 g PO DAILY 01/15/21 [History Last Taken Unknown] pramipexole 1.5 mg PO QHS 01/15/21 [History Last Taken Unknown] sennosides-docusate sodium [Senexon-S] 2 tab-cap PO DAILY PRN PRN 01/15/21 [History Last Taken Unknown] hydrocodone-acetaminophen 1 tab PO Q4H PRN PRN 2 Days #10 tablet 05/28/21 [Rx Last Taken Unknown] Allergy/AdvReac Type Severity Reaction Status Date / Time cyclobenzaprine HCl Allergy Other Verified 05/28/21 13:06 [From Flexeril] diphenhydramine HCl Allergy Other Verified 05/28/21 13:06 [From Benadryl] doxepin Allergy Other Verified 05/28/21 13:06 hydrocodone bitartrate Allergy Vomiting Verified 05/28/21 13:06 [From Vicodin] Iodine and Iodide Containing Allergy Other Verified 05/28/21 13:06 Produc Surgical History no surgical history Social History Smoking Status: Never smoker ROS ROS ED ROS Narrative Confusion Constitutional Constitutional ED: Reports systems reviewed and no addt'l complaints, except as documented; Denies body ache(s), change in weight or chills Eyes Eyes: Denies acute decrease in peripheral vision, change in vision, double vision or loss of vision ENT ENT ED: Reports none; Denies ear pain, lip swelling, loss taste/smell, neck pain, otalgia or sore throat Cardiovascular Cardiovascular: Reports none; Denies abdominal pain, chest pain with activity, leg edema, lightheadedness, palpitations, rapid heart rate or syncope Respiratory/Chest Respiratory/Chest: Reports none; Denies change in mental status, dry cough, dyspnea, hemoptysis, shortness of breath at rest or shortness of breath with exertion Gastrointestinal Gastrointestinal: Reports none; Denies abdominal pain, change in stool character, diarrhea, hematemesis, hematochezia, melena, rectal bleeding or vomiting Genitourinary Genitourinary ED: Reports none; Denies abdominal discomfort, anuria, dysuria, genital pain or polyuria Musculoskeletal Musculoskeletal: Reports none; Denies arthralgias, back pain, difficulty walking, extremity pain, muscle weakness or myalgias Integumentary Reports none; Denies abscess or rash Neurologic Neurologic: Reports none; Denies abnormal gait, confusion, focal weakness, frequent falls, headache(s), loss of vision, numbness, paresthesias, radicular pain, vertigo or weakness Psychiatric Psychiatric: Reports systems reviewed and no addt'l complaints, except as documented and none; Denies behavioral changes, confusion, difficulty concentrating, hallucinations, suicidal ideation, tactile hallucinations or visual hallucinations Endocrine Endocrinology: Denies none, cold intolerance, excessive sweating, fatigue or heat intolerance Hematologic/Lymphatic Hematologic/Lymphatic: Reports none; Denies anemia, easy bleeding or easy bruising Allergic/Immunologic Allergic/Immunologic ED: Denies as per HPI, none, lip swelling, mouth swelling, throat swelling, tongue swelling or hives EXAM Physical Exam Const Vital Signs: 05/28/21 12:59 05/28/21 13:06 05/28/21 14:00 Temperature 97.1 F L Temperature Source Temporal Pulse Rate 93 87 84 Respiratory Rate 15 14 14 Blood Pressure 142/78 H 122/02 H 104/64 Blood Pressure Mean 99 42 77 Pulse Ox 97 97 96 Oxygen Delivery Method Room Air Room Air Room Air Positive well nourished and well developed General Appearance ED: well developed and NAD HEENT Reports TM's clear and moist mucous membranes normocephalic and atraumatic; Negative for trauma or tenderness Tympanic Membrane ED: Yes TM's clear Eyes PERRL and EOMs intact bilaterally General Eye ED: Negative for pale conjunctiva or scleral icterus Neck no lymphadenopathy, supple and no JVD General: Negative for tenderness Chest Wall inspection of chest normal and palpation of chest normal Chest: Negative for tenderness Resp normal respiratory effort and clear to auscultation bilaterally Effort and Inspection: Negative for respiratory distress or pain with movement Auscultation: Negative for rhonchi, wheezes or diminished lung sounds Cardio regular rate, regular rhythm, S1 normal heart sound, S2 normal heart sound and no murmurs Peripheral Pulses: pulses 2+ throughout GI normal to inspection, nondistended, normoactive bowel sounds, soft to palpation, non-tender, non-distended and no masses Back/Spine no CVA tenderness and no thoracic nor lumbar tenderness Extremity normal to inspection General Extremety ED: Negative for edema General Extremity: Negative for edema Neuro CN's II-XII intact bilaterally, no sensory deficits noted and gait normal Neuro Narrative: Patient alert to person and place but not to time. Sensorium / Orientation: awake, alert, oriented to person, oriented to place and oriented to time Motor Exam: strength 5/5 throughout and strength abnormal Psych mental status grossly normal Skin no rashes or lesions noted and no wounds MDM MDM MDM Narrative Medical decision making narrative: IV line established on arrival. Patient's lab work-up unremarkable. CT brain was unremarkable. Patient is more cognizant of her surroundings and more at her baseline than prior per friend who is with her. The friend does state that she has noticed a decline over the last several years with increased confusion and forgetfulness. This point I do not think she is having a TIA or acute neurologic event. I suspect she likely has progressive dementia. Patient is comfortable going home as she has nursing staff that gives her her medication daily. After discussing with nursing staff it was noted that she had her hydrocodone prescription lapse and she will need to have it refilled when she visits her primary care physician next week. Patient asked that I give her a few hydrocodone until she can see her primary care physician. Patient takes hydrocodone for some chronic back pain issues. I will write her a prescription for few hydrocodone. Patient advised to follow-up with her primary care physician in 3 to 5 days. Advised to return if condition should worsen anyway. Lab Data Attestation: I reviewed the patient's lab results. Labs: Laboratory Results - last 24 hr 05/28/21 05/28/21 05/28/21 13:15 13:15 13:20 WBC 11.5 H RBC 4.80 Hgb 15.1 H Hct 43.3 MCV 90.2 MCH 31.5 MCHC 34.9 RDW Std Deviation 40.3 RDW Coeff of Swati 12.3 Plt Count 218 MPV 9.1 Immature Gran % (Auto) 0.300 Neut % (Auto) 71.5 H Lymph % (Auto) 19.4 [place] % (Auto) 6.5 Eos % (Auto) 1.6 Baso % (Auto) 0.7 Absolute Neuts (auto) 8.2 H Absolute Lymphs (auto) 2.22 Nucleated RBC % 0 Sodium 140 Potassium 4.1 Chloride 106 Carbon Dioxide 27.0 Anion Gap 7 BUN 16 Creatinine 0.78 Estim Creat Clear Calc 38.94 Est GFR (MDRD) Af Amer 93 Est GFR (MDRD) Non-Af 77 BUN/Creatinine Ratio 20.5 H Glucose 96 Lactic Acid 1.8 Calcium 10.3 H Total Bilirubin 0.40 AST 21 ALT 35 Alkaline Phosphatase 93 Troponin I High Sens 6 Total Protein 7.6 Albumin 3.9 Globulin 3.7 Albumin/Globulin Ratio 1.1 Urine Color Urine Clarity Urine pH Ur Specific [place] Urine Protein Urine Glucose (UA) Urine Ketones Urine Occult Blood Urine Nitrite Urine Bilirubin Urine Urobilinogen Ur Leukocyte Esterase Urine RBC Urine WBC Ur Squamous Epith Cells Urine Bacteria Urine Mucus 05/28/21 14:14 WBC RBC Hgb Hct MCV MCH MCHC RDW Std Deviation RDW Coeff of Swati Plt Count MPV Immature Gran % (Auto) Neut % (Auto) Lymph % (Auto) [place] % (Auto) Eos % (Auto) Baso % (Auto) Absolute Neuts (auto) Absolute Lymphs (auto) Nucleated RBC % Sodium Potassium Chloride Carbon Dioxide Anion Gap BUN Creatinine Estim Creat Clear Calc Est GFR (MDRD) Af Amer Est GFR (MDRD) Non-Af BUN/Creatinine Ratio Glucose Lactic Acid Calcium Total Bilirubin AST ALT Alkaline Phosphatase Troponin I High Sens Total Protein Albumin Globulin Albumin/Globulin Ratio Urine Color Yellow Urine Clarity Sl. Cloudy Urine pH 7.0 Ur Specific [place] 1.010 Urine Protein Negative Urine Glucose (UA) Normal Urine Ketones Negative Urine Occult Blood 10 H Urine Nitrite Negative Urine Bilirubin Negative Urine Urobilinogen Normal Ur Leukocyte Esterase Negative Urine RBC 0 SEEN Urine WBC 0 SEEN Ur Squamous Epith Cells 0-5 SEEN Urine Bacteria 0 SEEN Urine Mucus 0 SEEN Radiography Diagnostic Testing: Clinical Impression(s) from Imaging Studies Brain CT 05/28/21 13:10 IMPRESSION: Chronic involutional changes of the brain. Electronically Signed: Gelacio Lai MD at 14:06 EST , EKG Initial EKG: Attestation: I personally reviewed and interpreted this EKG as follows: Comments: Sinus rhythm with a ventricular rate of 87 bpm with no acute ST segment changes Discharge Plan Triage Chief Complaint: Confusion ED Provider: Sebastian Reddy Dx/Rx/DC Orders Clinical Impression: Acute confusion, Dementia Instructions: ED Confusion Prescriptions: New hydrocodone-acetaminophen [hydrocodone-acetaminophen] 1 TABLET tablet 1 tab PO Q4H PRN PRN (Reason: Pain) 2 Days Qty: 10 RF: 0 No Action gabapentin 800 MG tablet 800 mg PO TIDCM RF: 0 insulin aspart U-100 [Novolog U-100 Insulin aspart] 100 UNIT/ML solution 0 unit SQ TID RF: 0 levetiracetam 750 MG tablet 1,500 mg PO BID RF: 0 losartan 100 MG tablet 100 mg PO QHS RF: 0 Tresiba FlexTouch U-100 100 UNIT/ML insulin pen 80 unit SQ QHS RF: 0 montelukast 10 MG tablet 10 mg PO QHS RF: 0 Mucus Relief ER 1,200 MG tablet 1,200 mg PO BID RF: 0 atorvastatin 10 MG tablet 10 mg PO QHS RF: 0 Ziprasidone Hcl [Geodon] 40 MG capsule 40 mg PO BID RF: 0 polyethylene glycol 3350 [Gavilax] 17 gram Powder In Packet 17 g PO DAILY RF: 0 hydrocodone-acetaminophen 5-325 mg Tablet 1 tab PO BID PRN (Reason: Pain) RF: 0 hydrocodone-acetaminophen 5-325 mg Tablet 1 tab PO DAILY PRN PRN (Reason: Pain) RF: 0 sennosides-docusate sodium [Senexon-S] 8.6-50 mg Tablet 2 tab-cap PO DAILY PRN PRN (Reason: Constipation) RF: 0 acetaminophen 500 mg Tablet 500 mg PO Q4H PRN PRN (Reason: PAIN/FEVER) RF: 0 meclizine 25 mg Tablet 25 mg PO TID PRN (Reason: Dizziness) RF: 0 albuterol 90 mcg/actuation Aerosol 2 mcg INHALATION Q6H PRN PRN (Reason: SOB) RF: 0 cholecalciferol (vitamin D3) 125 mcg (5,000 unit) Tablet 125 mcg PO DAILY RF: 0 fluticasone furoate 50 mcg/actuation Blister With Device 2 mcg INHALATION DAILY PRN PRN (Reason: Congestion) RF: 0 pramipexole 0.125 MG tablet 1.5 mg PO QHS RF: 0 Primary Care Provider: Jules Samayoa Referrals: Jules Samayoa MD [Primary Care Provider] - 3-5 Days Disposition Disposition: Home, Self Care
[2021-05-28 13:27] LABS: Absolute Lymphocyte Count 2.22 X10^3/uL (0.83-4.51); Absolute Neutrophil Count 8.2 X10^3/uL (2.0-7.7); Basophil# 0.08 X10^3/uL; Basophil% 0.7 % (0-1); Eosinophil# 0.18 X10^3/uL; Eosinophils% 1.6 % (0-5); Hematocrit 43.3 % (37-47); Hemoglobin 15.1 g/dL (12.0-15.0); Lymphocyte # 2.22 X10^3/ul (0.83-4.51); Lymphocyte % 19.4 % (19-41); Mean Corp Hgb Conc 34.9 g/dL (32-36); Mean Corpuscular Hgb 31.5 pg (27.0-32.0); Mean Corpuscular Volume 90.2 fL (81-99); Mean Platelet Vol. 9.1 fl (6.2-12.0); Monocyte# 0.75 X10^3/uL; Monocyte% 6.5 % (0-10); NRBC Flagged by Analyzer 0 % (0-5); Neutrophil % 71.5 % (47-70); Platelet Count 218 K/mm3 (150-450); RBC Distribution Width CV 12.3 % (11.6-14.6); RBC Distribution Width SD 40.3 fl (35.1-43.9); White Blood Count 11.5 K/mm3 (4.4-11.0)
[2021-05-28 13:39] LABS: ALB/GLOB Ratio 1.1 RATIO (0.9-2.4); AST(SGOT) 21 U/L (15-37); Alanine Aminotransfer ALT/SGPT 35 U/L (13-56); Albumin, Serum 3.9 g/dL (3.2-5.0); Alkaline Phosphatase 93 U/L (45-117); Anion Gap 7 (5-15); BUN 16 mg/dL (7-18); BUN/Creat Ratio 20.5 RATIO (10-20); Calcium,Total 10.3 mg/dL (8.5-10.1); Chloride 106 mmol/L (98-107); Creatinine, Serum 0.78 mg/dL (0.55-1.02); EST Glomerular Filtration Rate 77 mL/min (>60); Est Glom Filt Rate - Afr Amer 93 mL/min (>60); Estimated Creatinine Clearance 38.94 ml/min; Globulin 3.7 g/dL (2.2-4.2); Glucose 96 mg/dL (74-106); Potassium 4.1 mmol/L (3.5-5.1); Protein, Total 7.6 g/dL (6.4-8.2); Sodium Level 140 mmol/L (136-145); Troponin-I HS 6 pg/mL (3.0-54.0)
[2021-05-28 13:57] LABS: Lactic Acid 1.8 mmol/L (0.4-1.9)
[2021-05-28 14:00] VITALS: BP 104/64; PULSE 84; RESP 14; O2SAT 96
[2021-05-28] MEDS: 0.9% Normal Saline 1,000 ML 1000 ML IV (14:00)
[2021-05-28 14:20] LABS: Bacteria 0 SEEN /hpf (None Seen); Mucous, Urine 0 SEEN /hpf (<or=2+); Red Blood Cells-Urine 0 SEEN /hpf (0-5); White Blood Cells 0 SEEN /hpf (0-5)
[2021-05-28 14:22] LABS: Color, Urine Yellow (Yellow); Glucose, Dipstick Normal (Normal); Ketone-Dipstick Negative (Negative); Leukocyte Esterase-Dipstick Negative /ul (Negative); Nitrite-Dipstick Negative (Negative); Occult Blood-Urine 10 /ul (Negative); Protein-Dipstick Negative (Negative); Urine Bilirubin Dipstick Negative (Negative); Urine Clarity Sl. Cloudy (Clear); Urine Urobilinogen Normal (Normal)
[2021-05-28 14:28] LABS: Squamous Epithelial Cells - UA 0-5 SEEN /hpf (5-10)
[2021-05-28 15:19] VITALS: BP 127/67; PULSE 88; RESP 16; O2SAT 99
== END 2021-05-28 15:30 | disposition home or self-care (01) ==
PROVIDERS: Emergency Provider Emergency Medicine; PCP Internal Medicine; Visit Provider Emergency Medicine
DX: F03.90 Unspecified dementia, unspecified severity, without behavioral disturbance, psychotic disturbance, mood disturbance, and anxiety (principal); F39 Unspecified mood [affective] disorder; E11.40 Type 2 diabetes mellitus with diabetic neuropathy, unspecified; G40.909 Epilepsy, unspecified, not intractable, without status epilepticus; Z79.4 Long term (current) use of insulin; I10 Essential (primary) hypertension; E78.00 Pure hypercholesterolemia, unspecified; Z79.899 Other long term (current) drug therapy
CPT/HCPCS: 70450; 80053; 81001; 83605; 84484; 85025; 87040; 87426; 93005; 96360; 99283; J7030; A4216

== ENCOUNTER 2022-07-27 14:43 | Emergency (ER) | payer MEDICARE, MEDICAID, SELFPAY ==
[2022-07-27 14:45] VITALS: BP 125/90; PULSE 91; RESP 24; TEMP 36.3; O2SAT 95; BMI 34.9
--- NOTE | 2022-07-27 15:09 | CT_ITS ---
STUDY: CT BRAIN WITHOUT CONTRAST REASON FOR EXAM: Female, 72 years old. ams RADIATION DOSAGE (If Supplied By Facility): CTDIvol = ( 44.99 ) mGy, DLP = ( 779.24 ) mGycm TECHNIQUE: Transaxial CT imaging of the brain was performed without administration of intravenous contrast material. Individualized dose optimization techniques were used for this CT. COMPARISON: 05/28/2021 CT head FINDINGS: Normal soft tissue structures. Normal calvarium. There is moderate cerebral atrophy with widening of the extra-axial spaces and ventricular dilatation. There are areas of decreased attenuation within the white matter tracts of the supratentorial brain, consistent with microvascular disease changes. Normal basal ganglia and thalami. Normal brainstem. Normal cerebellum. There is no intracranial hemorrhage. There are no findings of an acute ischemic infarction. Normal visualized paranasal sinuses. CT/Brain/Head without Contrast IMPRESSION: Senescent changes with no evidence of acute intracranial bleed, mass or ischemia. Electronically Signed: Seth Zabala DO at 15:57 EDT ,
--- NOTE | 2022-07-27 15:10 | EKG12_ITS ---
Test Reason : Blood Pressure : / mmHG Vent. Rate : 080 BPM Atrial Rate : 080 BPM P-R Int : 210 ms QRS Dur : 072 ms QT Int : 350 ms P-R-T Axes : 032 029 028 degrees QTc Int : 403 ms Sinus rhythm with 1st degree A-V block Otherwise normal ECG Confirmed by SHALINI MALDONADO, OSCAR ([id number]), makeup editor IMELDA JOSE ([id number]) on 07/30/2022 11:34:36 AM Referred By: Confirmed By:DARLEEN LOYA MD
--- NOTE | 2022-07-27 15:11 | EDS_ITS ---
HPI History of Present Illness Chief Complaint: Confusion Narrative Narrative: 72-year-old female presenting with confusion. I am unsure of her actual baseline but she is only alert to self currently. The paperwork that came with her states that she is confused. She does have history of falls. She does not have any pain complaints. She is repeatedly saying help me. [facility] Medical History Asthma Diabetes High cholesterol Hypertension Neuropathy Psychotic affective disorder Seizures Vertigo Home Medications gabapentin 800 mg tablet 800 mg PO TIDCM nerve pain 04/29/17 [History Last Taken 06/27/18 06:00] insulin aspart U-100 100 unit/mL subcutaneous solution (Novolog U-100 Insulin aspart) 0 unit SQ TID blood sugar 04/29/17 [History Last Taken 05/22/17] insulin degludec 100 unit/mL (3 mL) subcutaneous pen (Tresiba FlexTouch U-100 insulin) 80 unit SQ QHS blood sugar 04/29/17 [History Last Taken 05/21/17] levetiracetam 750 mg tablet 1,500 mg PO BID seizures 04/29/17 [History Last Taken 06/27/18 06:00] losartan 100 mg tablet 100 mg PO QHS blood pressure 04/29/17 [History Last Taken 05/31/17 06:00 50 MG] guaifenesin 1,200 mg tablet, extended release 12 hr (Mucus Relief ER) 1,200 mg PO BID 06/20/18 [History Last Taken Unknown] montelukast 10 mg tablet 10 mg PO QHS 06/20/18 [History Last Taken Unknown] Ziprasidone Hcl [Geodon] 40 mg PO BID 08/22/19 [History Last Taken Unknown] atorvastatin 10 mg tablet 10 mg PO QHS 08/22/19 [History Last Taken Unknown] acetaminophen 500 mg tablet 500 mg PO Q4H PRN PRN PAIN/FEVER 01/15/21 [History Last Taken Unknown] albuterol 90 mcg/actuation aerosol inhaler 2 mcg inhalation Q6H PRN PRN SOB 01/15/21 [History Last Taken Unknown] cholecalciferol (vitamin D3) 125 mcg (5,000 unit) tablet 125 mcg PO DAILY 01/15/21 [History Last Taken Unknown] fluticasone furoate 50 mcg/actuation blister powder for inhalation 2 mcg inhalation DAILY PRN PRN Congestion 01/15/21 [History Last Taken Unknown] hydrocodone-acetaminophen 5-325mg 5mg-325mg 1 tab PO BID PRN Pain 01/15/21 [History Last Taken Unknown] hydrocodone-acetaminophen 5-325mg 5mg-325mg 1 tab PO DAILY PRN PRN Pain 01/15/21 [History Last Taken Unknown] meclizine 25 mg tablet 25 mg PO TID PRN Dizziness 01/15/21 [History Last Taken Unknown] polyethylene glycol 3350 17 gram oral powder packet (Gavilax) 17 g PO DAILY 01/15/21 [History Last Taken Unknown] pramipexole 0.125 mg tablet 1.5 mg PO QHS 01/15/21 [History Last Taken Unknown] sennosides 8.6 mg-docusate sodium 50 mg tablet (Senexon-S) 2 tab-cap PO DAILY PRN PRN Constipation 01/15/21 [History Last Taken Unknown] hydrocodone-acetaminophen 5-325mg 5mg-325mg 1 tab PO Q4H PRN PRN Pain 2 days #10 TABLETS 05/28/21 [Rx Last Taken Unknown] Allergy/AdvReac Type Severity Reaction Status Date / Time cyclobenzaprine HCl Allergy Other Verified 05/28/21 13:06 [From Flexeril] diphenhydramine HCl Allergy Other Verified 05/28/21 13:06 [From Benadryl] doxepin Allergy Other Verified 05/28/21 13:06 hydrocodone bitartrate Allergy Vomiting Verified 05/28/21 13:06 [From Vicodin] Iodine and Iodide Containing Allergy Other Verified 05/28/21 13:06 Produc Social History Smoking Status: Never smoker ROS ROS ED Review of Systems ROS Unobtainable: due to mental condition and due to mental status EXAM Physical Exam Const Vital Signs: 07/27/22 14:45 07/27/22 17:55 Temperature 97.3 F L Temperature Source Temporal Pulse Rate 91 Respiratory Rate 24 H 16 Blood Pressure 125/90 H Blood Pressure Mean 101 Pulse Ox 95 Oxygen Delivery Method Room Air Positive well nourished General Appearance ED: NAD HEENT Reports moist mucous membranes Negative for trauma Eyes PERRL and EOMs intact bilaterally Resp normal respiratory effort and clear to auscultation bilaterally Auscultation: Negative for rales, rhonchi or wheezes Cardio regular rate and regular rhythm GI normal to inspection, nondistended, normoactive bowel sounds Neuro CN's II-XII intact bilaterally Sensorium / Orientation: alert and orientation impaired Skin no rashes or lesions noted MDM MDM MDM Narrative Medical decision making narrative: 72-year-old female with altered mental status. I have no known baseline. The paperwork that she came with just a sensation infused. She has had falls in the past but I do not see any evidence of trauma. There is also some related concern of UTI. Differential at this point includes cellulitis intracranial hemorrhage, ACS, pneumonia, UTI, hyperglycemia, electrolyte abnormalities, dehydration cellulitis. CBC was within cell count, hemoglobin, platelets. CMP to assess liver function, renal function, glucose, anion gap, electrolytes. EKG to assess for dysrhythmia. High-sensitivity troponin. Chest x-ray to rule out pneumonia. Urinalysis to assess for UTI. Will also be added to the patient's confusional state. CBC shows normal white blood cell count at 9.9. Hemoglobin hematocrit are stable. Platelets are normal. Renal function and electrolytes within normal limits. LFTs are normal. High-sensitivity troponin is 4. EKG sinus rhythm with first-degree AV block. Ventricular rate of 80 bpm. This is on my interpretation. GA interval 210 ms, QRS 70 duration 72 ms, QTc 4 3 ms.. CBC shows no significant leukocytosis with a white blood count 9.9. Hemoglobin hematocrit are stable. Platelets are normal. Renal function electrolytes within normal limits. LFTs are normal. High-sensitivity troponin is 4. Urinalysis is negative for infection. CT brain shows no acute findings. Chest x-ray on my interpretation shows no acute cardiopulmonary process. Radiologist are present and agrees. Patient takes Geodon twice a day and she was given her afternoon dose of 20 mg IM because he is agitated. I have not found a reason to admit her there is no infectious process. He does have a history of dementia. Will speak with Dr. Scott. Patient will be discharged back to [place]. Impression: 1 altered LOC 2. History of dementia Lab Data Labs: Laboratory Results - last 24 hr 07/27/22 07/27/22 07/27/22 15:00 15:00 16:23 WBC 9.9 RBC 4.71 Hgb 13.9 Hct 41.4 MCV 87.9 MCH 29.5 MCHC 33.6 RDW Std Deviation 40.6 RDW Coeff of Swati 12.6 Plt Count 238 MPV 9.6 Immature Gran % (Auto) 0.300 Neut % (Auto) 62.2 Lymph % (Auto) 29.6 [place] % (Auto) 5.4 Eos % (Auto) 1.7 Baso % (Auto) 0.8 Absolute Neuts (auto) 6.2 Absolute Lymphs (auto) 2.93 Nucleated RBC % 0 Sodium 137 Potassium 4.0 Chloride 109 H Carbon Dioxide 21.0 Anion Gap 7 BUN 11 Creatinine 0.78 Estim Creat Clear Calc 38.37 Est GFR (MDRD) Af Amer 93 Est GFR (MDRD) Non-Af 77 BUN/Creatinine Ratio 14.1 Glucose 188 H Calcium 10.6 H Total Bilirubin 0.30 AST 17 ALT 25 Alkaline Phosphatase 130 H Troponin I High Sens 4 Total Protein 7.6 Albumin 3.6 Globulin 4.0 Albumin/Globulin Ratio 0.9 Urine Color Yellow Urine Clarity Clear Urine pH 7.0 Ur Specific [place] 1.010 Urine Protein Negative Urine Glucose (UA) Normal Urine Ketones Negative Urine Occult Blood Negative Urine Nitrite Negative Urine Bilirubin Negative Urine Urobilinogen Normal Ur Leukocyte Esterase Negative Urine RBC 0 SEEN Urine WBC 0 SEEN Ur Squamous Epith Cells 0 SEEN Urine Bacteria 0 SEEN Urine Mucus 0 SEEN Radiography Diagnostic Testing: Clinical Impression(s) from Imaging Studies Brain CT 07/27/22 15:09 IMPRESSION: Senescent changes with no evidence of acute intracranial bleed, mass or ischemia. Electronically Signed: Seth Zabala DO at 15:57 EDT , Chest X-Ray 07/27/22 15:45 IMPRESSION: No evidence of acute cardiopulmonary process. Electronically Signed: Seth Zabala DO at 16:00 EDT , Discharge Plan Triage Chief Complaint: Confusion ED Provider: Brent Lima Dx/Rx/DC Orders Instructions: ED ALOC Prescriptions: No Action gabapentin 800 MG tablet 800 mg PO TIDCM insulin aspart U-100 [Novolog U-100 Insulin aspart] 100 UNIT/ML solution 0 unit SQ TID Rx Instructions: per sliding levetiracetam 750 MG tablet 1,500 mg PO BID losartan 100 MG tablet 100 mg PO QHS Tresiba FlexTouch U-100 100 UNIT/ML insulin pen 80 unit SQ QHS montelukast 10 MG tablet 10 mg PO QHS Mucus Relief ER 1,200 MG tablet 1,200 mg PO BID atorvastatin 10 MG tablet 10 mg PO QHS Ziprasidone Hcl [Geodon] 40 MG capsule 40 mg PO BID polyethylene glycol 3350 [Gavilax] 17 gram Powder In Packet 17 g PO DAILY hydrocodone-acetaminophen 5-325 mg Tablet 1 tab PO BID PRN (Reason: Pain) hydrocodone-acetaminophen 5-325 mg Tablet 1 tab PO DAILY PRN PRN (Reason: Pain) sennosides-docusate sodium [Senexon-S] 8.6-50 mg Tablet 2 tab-cap PO DAILY PRN PRN (Reason: Constipation) acetaminophen 500 mg Tablet 500 mg PO Q4H PRN PRN (Reason: PAIN/FEVER) meclizine 25 mg Tablet 25 mg PO TID PRN (Reason: Dizziness) albuterol 90 mcg/actuation Aerosol 2 mcg INHALATION Q6H PRN PRN (Reason: SOB) cholecalciferol (vitamin D3) 125 mcg (5,000 unit) Tablet 125 mcg PO DAILY fluticasone furoate 50 mcg/actuation Blister With Device 2 mcg INHALATION DAILY PRN PRN (Reason: Congestion) pramipexole 0.125 MG tablet 1.5 mg PO QHS hydrocodone-acetaminophen [hydrocodone-acetaminophen] 1 TABLET tablet 1 tab PO Q4H PRN PRN (Reason: Pain) 2 Days Qty: 10 0RF Primary Care Provider: Jules Samayoa Referrals: Jules Samayoa MD [Primary Care Provider] - Disposition Disposition: Home, Self Care
[2022-07-27 15:37] LABS: Absolute Lymphocyte Count 2.93 X10^3/uL (0.83-4.51); Absolute Neutrophil Count 6.2 X10^3/uL (2.0-7.7); Basophil# 0.08 X10^3/uL; Basophil% 0.8 % (0-1); Eosinophil# 0.17 X10^3/uL; Eosinophils% 1.7 % (0-5); Hematocrit 41.4 % (37-47); Hemoglobin 13.9 g/dL (12.0-15.0); Lymphocyte # 2.93 X10^3/ul (0.83-4.51); Lymphocyte % 29.6 % (19-41); Mean Corp Hgb Conc 33.6 g/dL (32-36); Mean Corpuscular Hgb 29.5 pg (27.0-32.0); Mean Corpuscular Volume 87.9 fL (81-99); Mean Platelet Vol. 9.6 fl (6.2-12.0); Monocyte# 0.53 X10^3/uL; Monocyte% 5.4 % (0-10); NRBC Flagged by Analyzer 0 % (0-5); Neutrophil # 6.15 X10^3/uL (2.7-7.7); Neutrophil % 62.2 % (47-70); Platelet Count 238 K/mm3 (150-450); RBC Distribution Width CV 12.6 % (11.6-14.6); RBC Distribution Width SD 40.6 fl (35.1-43.9); Red Blood Count 4.71 M/mm3 (4.2-5.4); White Blood Count 9.9 K/mm3 (4.4-11.0)
--- NOTE | 2022-07-27 15:45 | RAD_ITS ---
STUDY: X-RAY CHEST REASON FOR EXAM: Female, 72 years old. ams TECHNIQUE: 01/15/2021 COMPARISON: None. FINDINGS: The lungs are clear and expanded. There is no demonstrated pleural abnormality. Normal size heart. Normal mediastinum and jay. Normal visualized pulmonary arteries. Normal visualized aortic arch and descending thoracic aorta. Normal visualized thoracic spine. Normal visualized ribs, clavicles, and shoulders. There is no demonstrated abnormality of the visualized soft tissue structures of the upper abdomen. RAD/Chest 1 View (Portable) IMPRESSION: No evidence of acute cardiopulmonary process. Electronically Signed: Seth Zabala DO at 16:00 EDT ,
[2022-07-27 15:55] LABS: ALB/GLOB Ratio 0.9 RATIO (0.9-2.4); AST(SGOT) 17 U/L (15-37); Alanine Aminotransfer ALT/SGPT 25 U/L (13-56); Albumin, Serum 3.6 g/dL (3.2-5.0); Alkaline Phosphatase 130 U/L (45-117); Anion Gap 7 (5-15); BUN 11 mg/dL (7-18); BUN/Creat Ratio 14.1 RATIO (10-20); Calcium,Total 10.6 mg/dL (8.5-10.1); Chloride 109 mmol/L (98-107); Creatinine, Serum 0.78 mg/dL (0.55-1.02); EST Glomerular Filtration Rate 77 mL/min (>60); Est Glom Filt Rate - Afr Amer 93 mL/min (>60); Estimated Creatinine Clearance 38.37 ml/min; Glucose 188 mg/dL (74-106); Protein, Total 7.6 g/dL (6.4-8.2); Sodium Level 137 mmol/L (136-145); Troponin-I HS 4 pg/mL (3.0-54.0)
[2022-07-27] MEDS: Ziprasidone IM 20 MG/ML VIAL IM (16:17)
[2022-07-27 16:30] LABS: Bacteria 0 SEEN /hpf (None Seen); Mucous, Urine 0 SEEN /hpf (<or=2+); Red Blood Cells-Urine 0 SEEN /hpf (0-5); Squamous Epithelial Cells - UA 0 SEEN /hpf (5-10); White Blood Cells 0 SEEN /hpf (0-5)
[2022-07-27 16:41] LABS: Color, Urine Yellow (Yellow); Glucose, Dipstick Normal (Normal); Ketone-Dipstick Negative (Negative); Leukocyte Esterase-Dipstick Negative /ul (Negative); Nitrite-Dipstick Negative (Negative); Occult Blood-Urine Negative /ul (Negative); Protein-Dipstick Negative (Negative); Urine Bilirubin Dipstick Negative (Negative); Urine Clarity Clear (Clear); Urine Urobilinogen Normal (Normal)
[2022-07-27 17:55] VITALS: RESP 16
--- NOTE | 2022-07-27 18:20 | NURSING ---
CALLED TO SET UP TRANSPORT TO [place] [facility] ETA IS 60-90MIN 1920P-1950P.
[2022-07-27 20:36] VITALS: BP 125/90; PULSE 91; RESP 18; O2SAT 95
== END 2022-07-27 20:37 | disposition home or self-care (01) ==
PROVIDERS: Emergency Provider Student in an Organized Health Care Education/Training Program; PCP Internal Medicine; Visit Provider Student in an Organized Health Care Education/Training Program
DX: F03.90 Unspecified dementia, unspecified severity, without behavioral disturbance, psychotic disturbance, mood disturbance, and anxiety (principal); R41.82 Altered mental status, unspecified
CPT/HCPCS: 70450; 71045; 80053; 81001; 84484; 85025; 93005; 99285; P9612; A4216; J3486

== ENCOUNTER 2022-10-12 14:11 | Emergency (ER) | payer MEDICARE, MEDICAID, SELFPAY ==
[2022-10-12 14:13] VITALS: BP 119/58; PULSE 109; RESP 18; TEMP 36.7; O2SAT 100; BMI 31.8
[2022-10-12] MEDS: Ziprasidone IM 20 MG/ML VIAL IM (15:17)
[2022-10-12 16:04] LABS: Absolute Lymphocyte Count 1.38 X10^3/uL (0.83-4.51); Basophil# 0.09 X10^3/uL; Basophil% 0.6 % (0-1); Eosinophil# 0.03 X10^3/uL; Eosinophils% 0.2 % (0-5); Hematocrit 39.1 % (37-47); Hemoglobin 13.4 g/dL (12.0-15.0); Lymphocyte # 1.38 X10^3/ul (0.83-4.51); Mean Corp Hgb Conc 34.3 g/dL (32-36); Mean Corpuscular Hgb 29.9 pg (27.0-32.0); Mean Corpuscular Volume 87.3 fL (81-99); Mean Platelet Vol. 9.3 fl (6.2-12.0); Monocyte# 0.75 X10^3/uL; Monocyte% 4.9 % (0-10); NRBC Flagged by Analyzer 0 % (0-5); Neutrophil # 12.99 X10^3/uL (2.7-7.7); Neutrophil % 84.6 % (47-70); Platelet Count 225 K/mm3 (150-450); RBC Distribution Width CV 12.5 % (11.6-14.6); RBC Distribution Width SD 39.6 fl (35.1-43.9); Red Blood Count 4.48 M/mm3 (4.2-5.4); White Blood Count 15.3 K/mm3 (4.4-11.0)
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
[2022-10-12 16:22] LABS: ALB/GLOB Ratio 0.9 RATIO (0.9-2.4); AST(SGOT) 17 U/L (15-37); Alanine Aminotransfer ALT/SGPT 21 U/L (13-56); Albumin, Serum 3.5 g/dL (3.2-5.0); Alkaline Phosphatase 144 U/L (45-117); Anion Gap 8 (5-15); BUN 16 mg/dL (7-18); Calcium,Total 10.2 mg/dL (8.5-10.1); Chloride 109 mmol/L (98-107); Creatinine, Serum 0.89 mg/dL (0.55-1.02); EST Glomerular Filtration Rate 66 mL/min (>60); Est Glom Filt Rate - Afr Amer 80 mL/min (>60); Estimated Creatinine Clearance 47.26 ml/min; Globulin 3.9 g/dL (2.2-4.2); Glucose 223 mg/dL (74-106); Potassium 3.7 mmol/L (3.5-5.1); Protein, Total 7.4 g/dL (6.4-8.2); Sodium Level 139 mmol/L (136-145)
[2022-10-12] MEDS: Midazolam 2 MG/2 ML Syringe IM (16:31)
[2022-10-12 16:32] VITALS: BP 124/75; PULSE 114; RESP 16; O2SAT 96
[2022-10-12 16:32] LABS: Alcohol, Blood (Medical)-Serum < 3.0 mg/dL
[2022-10-12 16:32] LABS: Amphetamine Urine VISTA NEGATIVE (<1000 ng/mL); Barbiturate Urine VISTA NEGATIVE (< 200 ng/mL); Benzodiazepine Urine VISTA NEGATIVE (< 200 ng/mL); Cocaine Urine VISTA NEGATIVE (< 300 ng/mL); Ecstacy Urine VISTA NEGATIVE (< 500 ng/mL); Methadone Urine VISTA NEGATIVE (< 300 ng/mL); PCP Urine VISTA NEGATIVE (< 25 ng/mL); THC Urine VISTA NEGATIVE (< 50 ng/mL); Vista UDS pH Range 6
--- NOTE | 2022-10-12 16:40 | CT_ITS ---
STUDY: CT BRAIN WITHOUT CONTRAST REASON FOR EXAM: Female, 72 years old. confusion RADIATION DOSAGE (If Supplied By Facility): CTDIvol = ( 44.99 ) mGy, DLP = ( 846.73 ) mGycm TECHNIQUE: Transaxial CT imaging of the brain was performed without administration of intravenous contrast material. Individualized dose optimization techniques were used for this CT. COMPARISON: July 27, 2022 FINDINGS: Normal soft tissue structures. Normal calvarium. Mild calcific plaquing of the cavernous carotids. Moderate atrophy and periventricular white matter ischemic changes. 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 . Normal basal ganglia and thalami. Normal brainstem. Normal cerebellum. There is no intracranial hemorrhage. There are no findings of an acute ischemic infarction. Diffusely opaque left sphenoid sinus. No significant change since prior exam CT/Brain/Head without Contrast IMPRESSION: Moderate atrophy and periventricular white matter ischemic change. No acute bleed.. If concern for acute infarct MRI recommended Electronically Signed: Neto Francois MD at 17:01 EDT ,
--- NOTE | 2022-10-12 16:40 | RAD_ITS ---
STUDY: X-RAY CHEST REASON FOR EXAM: Female, 72 years old. confusion TECHNIQUE: AP portable COMPARISON: None. FINDINGS: There is less than optimal inspiratory effort with bibasilar atelectasis.. There is no demonstrated pleural abnormality. Normal size heart. Normal mediastinum and jay. Normal visualized pulmonary arteries. Normal visualized aortic arch and descending thoracic aorta. Status post kyphoplasty of fracture at the thoracolumbar junction. Normal visualized ribs, clavicles, and shoulders. There is no demonstrated abnormality of the visualized soft tissue structures of the upper abdomen. RAD/Chest 1 View (Portable) IMPRESSION: Diminished inspiratory effort and mild bibasilar atelectasis. Electronically Signed: Neto Francois MD at 17:19 EDT ,
[2022-10-12] MEDS: LORazepam 2 MG/ML Syringe IM (18:18)
[2022-10-12] MEDS: Haloperidol Lactate 5 MG/ML Vial IM (18:18)
[2022-10-12 18:49] LABS: Bacteria 0 SEEN /hpf (None Seen); Mucous, Urine 0 SEEN /hpf (<or=2+); Red Blood Cells-Urine 0 SEEN /hpf (0-5); Squamous Epithelial Cells - UA 0 SEEN /hpf (5-10)
[2022-10-12 18:50] LABS: Color, Urine Yellow (Yellow); Glucose, Dipstick Normal (Normal); Ketone-Dipstick 5 mg/dl (Negative); Leukocyte Esterase-Dipstick Negative /ul (Negative); Nitrite-Dipstick Negative (Negative); Occult Blood-Urine Negative /ul (Negative); Protein-Dipstick 30 mg/dl (Negative); Specific Gravity, Urine 1.015 (1.002-1.030); Urine Bilirubin Dipstick Negative (Negative); Urine Clarity Clear (Clear); Urine Urobilinogen 1 mg/dl (Normal); Urine pH 6.5 (5.0 - 8.0)
[2022-10-12 18:55] LABS: White Blood Cells 0-5 SEEN /hpf (0-5)
[2022-10-12 19:00] VITALS: RESP 18
[2022-10-12 20:00] VITALS: RESP 20
[2022-10-12 21:00] VITALS: RESP 18
[2022-10-12 22:00] VITALS: BP 149/70; PULSE 81; RESP 18; O2SAT 97
[2022-10-13] VITALS: BP 138/70; PULSE 79; RESP 18; O2SAT 97
--- NOTE | 2022-10-13 00:07 | ED.RN ---
report called to alesia acevedo
== END 2022-10-13 00:44 | disposition home or self-care (01) ==
PROVIDERS: Emergency Provider Student in an Organized Health Care Education/Training Program; PCP Family Medicine; Visit Provider Student in an Organized Health Care Education/Training Program
DX: R45.1 Restlessness and agitation (principal)
CPT/HCPCS: 70450; 71045; 80048; 80053; 80307; 81001; 82077; 85025; 93005; 96372; 99285; P9612; A4216; J3486

== ENCOUNTER 2023-07-18 11:42 | Emergency (ER) | payer MEDICARE, MEDICAID, SELFPAY ==
[2023-07-18] VITALS (11 sets, daily range): BP systolic 127–192; BP diastolic 66–108; PULSE 81–111; RESP 14–22; TEMP 36.9; O2SAT 94–98; BMI 34.0
--- NOTE | 2023-07-18 12:22 | EKG12_ITS ---
Test Reason : CONFUSED Blood Pressure : / mmHG Vent. Rate : 101 BPM Atrial Rate : 101 BPM P-R Int : 182 ms QRS Dur : 066 ms QT Int : 336 ms P-R-T Axes : 052 052 049 degrees QTc Int : 435 ms Sinus tachycardia Otherwise normal ECG Confirmed by MARCIE MALDONADO, NADEEM ([id number]), society editor ANA BACA ([id number]) on 07/19/2023 8:22:44 AM Referred By: Confirmed By:NADEEM JACK MD
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
[2023-07-18 12:32] LABS: Red Blood Cells-Urine 0 SEEN /hpf (0-5)
[2023-07-18 12:44] LABS: Color, Urine Yellow (Yellow); Glucose, Dipstick 250 mg/dl (Normal); Ketone-Dipstick Negative (Negative); Leukocyte Esterase-Dipstick 500 /ul (Negative); Nitrite-Dipstick Negative (Negative); Occult Blood-Urine Negative /ul (Negative); Protein-Dipstick 15 mg/dl (Negative); Specific Gravity, Urine 1.015 (1.002-1.030); Urine Bilirubin Dipstick Negative (Negative); Urine Clarity Clear (Clear); Urine Urobilinogen Normal (Normal); Urine pH 6.5 (5.0 - 8.0)
[2023-07-18] MEDS: Ziprasidone IM 20 MG/ML VIAL 10 MG IM ×2 (12:46→21:48)
[2023-07-18] MEDS: LORazepam 2 MG/ML Syringe IM ×2 (12:46→22:51)
[2023-07-18 12:56] LABS: Squamous Epithelial Cells - UA 0-5 SEEN /hpf (5-10); White Blood Cells 10-25 SEEN /hpf (0-5)
[2023-07-18 12:57] LABS: Bacteria RARE /hpf (None Seen); Mucous, Urine RARE /hpf (<or=2+)
[2023-07-18 13:03] LABS: Amphetamine Urine VISTA NEGATIVE (<1000 ng/mL); Barbiturate Urine VISTA NEGATIVE (< 200 ng/mL); Benzodiazepine Urine VISTA NEGATIVE (< 200 ng/mL); Cocaine Urine VISTA NEGATIVE (< 300 ng/mL); Ecstacy Urine VISTA NEGATIVE (< 500 ng/mL); Methadone Urine VISTA NEGATIVE (< 300 ng/mL); PCP Urine VISTA NEGATIVE (< 25 ng/mL); THC Urine VISTA NEGATIVE (< 50 ng/mL); Vista UDS pH Range 6
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
[2023-07-18 13:42] LABS: Absolute Lymphocyte Count 2.14 X10^3/uL (0.83-4.51); Absolute Neutrophil Count 7.2 X10^3/uL (2.0-7.7); Basophil# 0.09 X10^3/uL; Basophil% 0.9 % (0-1); Eosinophil# 0.16 X10^3/uL; Eosinophils% 1.6 % (0-5); Hematocrit 40.6 % (37-47); Hemoglobin 13.5 g/dL (12.0-15.0); Lymphocyte # 2.14 X10^3/ul (0.83-4.51); Lymphocyte % 20.8 % (19-41); Mean Corp Hgb Conc 33.3 g/dL (32-36); Mean Corpuscular Volume 87.3 fL (81-99); Mean Platelet Vol. 9.2 fl (6.2-12.0); Monocyte# 0.63 X10^3/uL; Monocyte% 6.1 % (0-10); NRBC Flagged by Analyzer 0 % (0-5); Neutrophil # 7.24 X10^3/uL (2.7-7.7); Neutrophil % 70.2 % (47-70); Platelet Count 180 K/mm3 (150-450); RBC Distribution Width CV 12.9 % (11.6-14.6); RBC Distribution Width SD 40.5 fl (35.1-43.9); Red Blood Count 4.65 M/mm3 (4.2-5.4); White Blood Count 10.3 K/mm3 (4.4-11.0)
[2023-07-18 13:51] LABS: Bedside Glucose 248 mg/dL (74-106)
[2023-07-18 14:06] LABS: AST(SGOT) 20 U/L (15-37); Alanine Aminotransfer ALT/SGPT 33 U/L (13-56); Albumin, Serum 3.7 g/dL (3.2-5.0); Alkaline Phosphatase 104 U/L (45-117); Anion Gap 7 (5-15); BUN 22 mg/dL (7-18); Chloride 108 mmol/L (98-107); EST Glomerular Filtration Rate 58 mL/min (>60); Est Glom Filt Rate - Afr Amer 70 mL/min (>60); Estimated Creatinine Clearance 52.39 ml/min; Globulin 3.7 g/dL (2.2-4.2); Glucose 271 mg/dL (74-106); Potassium 4.1 mmol/L (3.5-5.1); Protein, Total 7.4 g/dL (6.4-8.2); Sodium Level 140 mmol/L (136-145)
[2023-07-18 14:21] LABS: Alcohol, Blood (Medical)-Serum < 3.0 mg/dL
[2023-07-18 15:04] LABS: Valproic Acid (Depakene) Level 30 ug/mL (50-100)
--- NOTE | 2023-07-18 15:06 | CT_ITS ---
STUDY: CT BRAIN WITHOUT CONTRAST REASON FOR EXAM: Female, 73 years old. Agitation RADIATION DOSAGE (If Supplied By Facility): CTDIvol = ( 44.99 ) mGy, DLP = ( 796.11 ) mGycm TECHNIQUE: Transaxial CT imaging of the brain was performed without administration of intravenous contrast material. Individualized dose optimization techniques were used for this CT. COMPARISON: Comparison is made with prior study dated October 12, 2022. FINDINGS: Normal soft tissue structures. Normal calvarium. There is mild cerebral atrophy with widening of the extra-axial spaces and ventricular dilatation. There are areas of decreased attenuation within the white matter tracts of the supratentorial brain, consistent with microvascular disease changes. Normal basal ganglia and thalami. Normal brainstem. Normal cerebellum. There is no intracranial hemorrhage. There are no findings of an acute ischemic infarction. Normal visualized paranasal sinuses. CT/Brain/Head without Contrast IMPRESSION: Chronic involutional changes of the brain. Electronically Signed: Tomasz Johnson MD at 15:43 EDT ,
--- NOTE | 2023-07-18 18:06 | ED.RN ---
Pt hallucinating at times, states it's winter, I see it snowing. Pt remains confused, oriented to self only.
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
--- NOTE | 2023-07-18 19:58 | ED.RN ---
spoke with [facility] pharmacy picking technician to complete med list from [place] to order home meds.
[2023-07-18] MEDS: Cephalexin 250 MG Capsule 500 MG PO (21:17)
--- NOTE | 2023-07-18 21:57 | ED.RN ---
PATIENT BECOMING INCREASING AGITATED WITH STAFF. PATIENT HITTING, KICKING AND PINCHING STAFF. RESTRAINT ORDER OBTAIN FROM DR. ARCE.
--- NOTE | 2023-07-18 23:23 | ED.RN ---
PT REFERRED TO [facility] FOR [facility]ACEMENT.
--- NOTE | 2023-07-19 00:13 | ED.RN ---
PATIENT CONTINUES TO YELL FOR HELP. [facility] CALLED AND SAID THAT THE RESTRAINTS NEEDS TO BE OFF FOR 4 HOURS. [facility] WOULD LIKE CALLED WHEN THE RESTRAINTS COME OFF AND THEN THEY WILL CALL BACK AT THE 4 HOUR [facility] FOR AN UPDATE.
[2023-07-19] MEDS: Ketamine HCl 500 MG/5 ML Vial 200 MG IM (01:04)
[2023-07-19 02:00] VITALS: BP 135/92; PULSE 94; RESP 16; O2SAT 94
--- NOTE | 2023-07-19 02:20 | ED.RN ---
0150 Pt appears to be calm and sedated., leather restraints removed.
[2023-07-19] MEDS: Glycerin/Hypromellose/PEG400 15 ml Bottle 2 DRP EACH EYE (02:23)
[2023-07-19 04:33] VITALS: BP 142/60; PULSE 103; RESP 18; O2SAT 99
[2023-07-19] MEDS: LORazepam 2 MG/ML Syringe IM (05:05)
[2023-07-19] MEDS: Cephalexin 250 MG Capsule 500 MG PO (05:05)
--- NOTE | 2023-07-19 05:22 | RAD_ITS ---
INDICATION: MENTAL HEALTH EXAMINATION/TECHNIQUE: X-RAY - XR Chest 1 View COMPARISON: No relevant prior comparison study available FINDINGS: LINES/DEVICES: None. LUNGS: The lungs are well expanded. No consolidation, edema or effusion. No pneumothorax. MEDIASTINUM AND CARDIOVASCULAR STRUCTURES: Cardiac silhouette not enlarged. Central airways and mediastinal contour are unremarkable. BONES AND SOFT TISSUES: No acute abnormality. RAD/Chest 1 View (Portable) IMPRESSION: No acute pulmonary finding. Electronically Signed: Jesus Peñaloza MD at 5:38 EDT ,
--- NOTE | 2023-07-19 07:13 | ED.RN ---
attempted to call report to [facility]--will not take report at this time.
[2023-07-19 08:00] VITALS: PULSE 92; RESP 16; O2SAT 95
[2023-07-19 08:24] VITALS: BP 117/58; PULSE 92; RESP 16; TEMP 36.4; O2SAT 95
== END 2023-07-19 08:56 ==
PROVIDERS: Emergency Provider Emergency Medicine; PCP Family Medicine; Visit Provider Emergency Medicine
DX: R45.6 Violent behavior (principal); F03.911 Unspecified dementia, unspecified severity, with agitation; E11.40 Type 2 diabetes mellitus with diabetic neuropathy, unspecified; Z79.4 Long term (current) use of insulin; R44.3 Hallucinations, unspecified; I10 Essential (primary) hypertension; E78.00 Pure hypercholesterolemia, unspecified; Z79.899 Other long term (current) drug therapy
CPT/HCPCS: 70450; 71045; 80048; 80076; 80164; 80307; 80320; 81001; 82962; 85025; 87086; 87633; 93005; 96372; 99285; A4216; G0480; J3486

== ENCOUNTER 2023-08-26 12:00 | Inpatient (IN) | payer MEDICARE, MEDICAID, SELFPAY ==
[2023-08-26 12:04] VITALS: BP 125/74; PULSE 79; RESP 21; TEMP 36.1; O2SAT 100; BMI 31.2
--- NOTE | 2023-08-26 12:14 | RAD_ITS ---
STUDY: X-RAY CHEST REASON FOR EXAM: Female, 73 years old. Weakness TECHNIQUE: Single AP portable view of the chest. COMPARISON: July 19, 2023. FINDINGS: The lungs are clear and under expanded. There is no demonstrated pleural abnormality. Normal size heart. Normal mediastinum and jay. Normal visualized pulmonary arteries. Normal visualized aortic arch and descending thoracic aorta. There is kyphoplasty of lower thoracic vertebra. Normal visualized ribs, clavicles, and shoulders. There is no demonstrated abnormality of the visualized soft tissue structures of the upper abdomen. RAD/Chest 1 View (Portable) IMPRESSION: No focal infiltrate or edema. Electronically Signed: Lakhwinder Campbell MD at 20:30 EDT ,
--- NOTE | 2023-08-26 12:22 | EX.ED.DYSGE1 ---
HPI <NIRMAL Martinez - Last Filed: 08/26/23 18:43> History of Present Illness Chief Complaint: Confusion Narrative Narrative: 73 year old female was brought in by EMS from [facility] for altered mental status. She has a history of dementia and psychosis and is alert to self at baseline. The half-way states she has been anxious and refusing meals and has seemed altered since August 17. [facility] <NIRMAL Martinez - Last Filed: 08/26/23 18:43> [facility] Medical History (Updated 08/26/23 @ 18:43 by NIRMAL Martinez) Dementia Vertigo Diabetes Neuropathy Asthma Seizures Psychotic affective disorder High cholesterol Hypertension Home Medications ?Medication ?Instructions ?Recorded ?Last Taken ?Type gabapentin 800 mg tablet 800 mg PO TIDCM nerve pain 04/29/17 06/27/18 06:00 History levetiracetam 750 mg tablet 750 mg PO BID seizures 04/29/17 06/27/18 06:00 History losartan 100 mg tablet 100 mg PO DAILY blood pressure 04/29/17 05/31/17 06:00 History 50 MG montelukast 10 mg tablet 10 mg PO QHS 06/20/18 Unknown History atorvastatin 10 mg tablet 10 mg PO QHS 08/22/19 Unknown History acetaminophen 500 mg tablet 500 mg PO Q4H PRN PAIN/FEVER 01/15/21 Unknown History bisacodyl 10 mg rectal suppository 10 mg [place] DAILY PRN constipation 07/18/23 Unknown History dextrose 40 % oral gel (Glucose 10 g PO Q15M PRN hypoglycemia 07/18/23 Unknown History Gel) divalproex 500 mg tablet,extended 500 mg PO QHS 07/18/23 Unknown History release 24 hr glucagon HCl 1 mg solution for 1 mg subcut Q20M PRN hypoglycemia 07/18/23 Unknown History injection (Glucagon (HCl) Emergency Kit) insulin lispro 100 unit/mL See Protocol subcut .COMPLEX 07/18/23 Unknown History subcutaneous pen magnesium hydroxide 400 mg/5 mL 30 ml PO DAILY PRN constipation 07/18/23 Unknown History oral suspension (Milk of Magnesia) mineral oil (Fleet Mineral Oil 118 ml [place] DAILY PRN constipation 07/18/23 Unknown History enema) nystatin 100,000 unit/gram topical 1 applic topical Q6H PRN skin 07/18/23 Unknown History powder irritation polyethylene glycol 3350 17 17 g PO DAILY 07/18/23 Unknown History gram/dose oral powder (Miralax) pramipexole 1.5 mg tablet 1.5 mg PO DAILY 07/18/23 Unknown History ziprasidone HCl 40 mg capsule 40 mg PO BID 07/18/23 Unknown History divalproex 250 mg tablet,delayed 250 mg PO QHS 08/26/23 Unknown History release donepezil 5 mg tablet 5 mg PO QHS 08/26/23 Unknown History memantine 5 mg tablet 5 mg PO BID 08/26/23 Unknown History Allergy/AdvReac Type Severity Reaction Status Date / Time cyclobenzaprine HCl (From Allergy Other Verified 07/18/23 11:49 Flexeril) diphenhydramine HCl (From Allergy Other Verified 07/18/23 11:49 Benadryl) doxepin Allergy Other Verified 07/18/23 11:49 hydrocodone bitartrate (From Allergy Vomiting Verified 07/18/23 11:49 Vicodin) Iodinated Contrast Media Allergy PT UNSURE Verified 07/18/23 11:49 OF REACTION Iodine and Iodide Containing Allergy Other Verified 07/18/23 11:49 Produc lamotrigine (From Lamictal) Allergy PT UNSURE Verified 07/18/23 11:49 OF REACTION metformin Allergy PT UNSURE Verified 07/18/23 11:49 OF REACTION tositumomab iodine-131 Allergy PT UNSURE Verified 07/18/23 11:49 OF REACTION zolpidem Allergy PT UNSURE Verified 07/18/23 11:49 OF REACTION Social History Smoking Status: Never smoker ROS <NIRMAL Martinez - Last Filed: 08/26/23 18:43> ROS ED ROS Narrative unable to obtain due to dementia EXAM <NIRMAL Martinez - Last Filed: 08/26/23 18:43> Physical Exam Narrative Exam Narrative: General: Awake in no distress. CVS: Heart RRR. Lungs: CTAB. Abdomen: soft and nontender. Psych: Alert to self, CN 2-12 intact, follows commands. Const Vital Signs: 08/26/23 12:04 Temperature 96.9 F L Temperature Source Temporal Pulse Rate 79 Respiratory Rate 21 H Blood Pressure 125/74 H Blood Pressure Mean 91 Pulse Ox 100 Oxygen Delivery Method Room Air <Dr. Checo Bowie DO - Last Filed: 08/26/23 14:05> Physical Exam Const Vital Signs: 08/26/23 12:04 Temperature 96.9 F L Temperature Source Temporal Pulse Rate 79 Respiratory Rate 21 H Blood Pressure 125/74 H Blood Pressure Mean 91 Pulse Ox 100 Oxygen Delivery Method Room Air MDM <NIRMAL Martinez - Last Filed: 08/26/23 18:43> [facility] MDM Narrative Medical decision making narrative: History gathered from: SNF, EMS Differential: dementia, UTI, electrolyte abnormality Patient has been altered according to SNF since August 17 with anxiety and decreased p.o. intake. History of dementia and agitation. She appears well and nontoxic and alert to self which is baseline. She was calm during my initial exam but according to the nurses started trying to crawl out of bed and became agitated so she was treated with IV Haldol 2 mg. Workup shows white count of 12.3 and urine is consistent with UTI. Renal function is baseline. Glucose is 300 with no DKA. She was treated with IV Rocephin and case will be discussed with the hospitalist for admission. Attending: Patient reported increased in confusion. History of seizure disorder, DM, HTN. SNF reports a fall with no injury this am. Nursing states SNF reports last normal August 17. Afebrile, VSS. AOx1. No outward signs of trauma. not redirectable. Climbing out of bed. WBC 12.3. UA + 10-25 WBC 2+Bacteria Nitrate + sent for culture. ATBX. Check CT Brain. Valproic acid wnl. Lab Data Attestation: I reviewed the patient's lab results. Labs: Laboratory Results - last 24 hr 08/26/23 08/26/23 12:15 12:30 WBC 12.3 H RBC 4.65 Hgb 13.4 Hct 40.1 MCV 86.2 MCH 28.8 MCHC 33.4 RDW Std Deviation 39.0 RDW Coeff of Swati 12.7 Plt Count 198 MPV 9.9 Immature Gran % (Auto) 1.000 H Neut % (Auto) 68.6 Lymph % (Auto) 22.6 [place] % (Auto) 6.1 Eos % (Auto) 1.0 Baso % (Auto) 0.7 Absolute Neuts (auto) 8.4 H Absolute Lymphs (auto) 2.77 Nucleated RBC % 0 Sodium 136 Potassium 4.5 Chloride 104 Carbon Dioxide 20.0 L Anion Gap 12 BUN 26 H Creatinine 1.06 H Estim Creat Clear Calc 50.92 Est GFR (MDRD) Af Amer 65 Est GFR (MDRD) Non-Af 54 L BUN/Creatinine Ratio 24.5 H Glucose 302 H Calcium 10.8 H Total Bilirubin 0.60 Direct Bilirubin 0.17 AST 17 ALT 25 Alkaline Phosphatase 108 Total Protein 7.3 Albumin 3.8 Globulin 3.5 Urine Color Yellow Urine Clarity Clear Urine pH 6.5 Ur Specific [place] 1.015 Urine Protein 15 H Urine Glucose (UA) 1000 H Urine Ketones 15 H Urine Occult Blood 150 H Urine Nitrite Positive H Urine Bilirubin Negative Urine Urobilinogen Normal Ur Leukocyte Esterase 100 H Urine RBC 0 SEEN Urine WBC 10-25 SEEN Ur Squamous Epith Cells 0 SEEN Urine Bacteria 2+ Urine Mucus 0 SEEN Valproic Acid 61 <Dr. Checo Bowie, DO - Last Filed: 08/26/23 14:05> [facility] MDM Narrative Medical decision making narrative: History gathered from: SNF, EMS Patient has been altered according to SNF since August 17 with anxiety and decreased p.o. intake. History of dementia and agitation. She appears well and nontoxic and alert to self which is baseline. She was calm during my initial exam but according to the nurses started trying to crawl out of bed and became agitated so she was treated with IV Haldol 2 mg. Workup shows white count of 12.3 and urine is consistent with UTI. Renal function is baseline. Glucose is 300 with no DKA. She was treated with IV Rocephin and case will be discussed with the hospitalist for admission. Attending: Patient reported increased in confusion. History of seizure disorder, DM, HTN. SNF reports a fall with no injury this am. Nursing states SNF reports last normal August 17. Afebrile, VSS. AOx1. No outward signs of trauma. not redirectable. Climbing out of bed. WBC 12.3. UA + 10-25 WBC 2+Bacteria Nitrate + sent for culture. ATBX. Check CT Brain. Valproic acid wnl. History & Record Review Discussion w/independent historian: Patient Lab Data Labs: Laboratory Results - last 24 hr 08/26/23 08/26/23 12:15 12:30 WBC 12.3 H RBC 4.65 Hgb 13.4 Hct 40.1 MCV 86.2 MCH 28.8 MCHC 33.4 RDW Std Deviation 39.0 RDW Coeff of Swati 12.7 Plt Count 198 MPV 9.9 Immature Gran % (Auto) 1.000 H Neut % (Auto) 68.6 Lymph % (Auto) 22.6 [place] % (Auto) 6.1 Eos % (Auto) 1.0 Baso % (Auto) 0.7 Absolute Neuts (auto) 8.4 H Absolute Lymphs (auto) 2.77 Nucleated RBC % 0 Sodium 136 Potassium 4.5 Chloride 104 Carbon Dioxide 20.0 L Anion Gap 12 BUN 26 H Creatinine 1.06 H Estim Creat Clear Calc 50.92 Est GFR (MDRD) Af Amer 65 Est GFR (MDRD) Non-Af 54 L BUN/Creatinine Ratio 24.5 H Glucose 302 H Calcium 10.8 H Total Bilirubin 0.60 Direct Bilirubin 0.17 AST 17 ALT 25 Alkaline Phosphatase 108 Total Protein 7.3 Albumin 3.8 Globulin 3.5 Urine Color Yellow Urine Clarity Clear Urine pH 6.5 Ur Specific [place] 1.015 Urine Protein 15 H Urine Glucose (UA) 1000 H Urine Ketones 15 H Urine Occult Blood 150 H Urine Nitrite Positive H Urine Bilirubin Negative Urine Urobilinogen Normal Ur Leukocyte Esterase 100 H Urine RBC 0 SEEN Urine WBC 10-25 SEEN Ur Squamous Epith Cells 0 SEEN Urine Bacteria 2+ Urine Mucus 0 SEEN Valproic Acid 61 Management Discussion w/another healthcare provider: Hospitalist (Dr. No) Discharge Plan Dx/Rx/DC Orders Clinical Impression: Acute UTI, Acute alteration in mental status Disposition Disposition: Acute Care [facility] Discharge Date/Time: 08/26/23 14:56
[2023-08-26 12:29] LABS: Absolute Lymphocyte Count 2.77 X10^3/uL (0.83-4.51); Absolute Neutrophil Count 8.4 X10^3/uL (2.0-7.7); Basophil# 0.08 X10^3/uL; Basophil% 0.7 % (0-1); Eosinophil# 0.12 X10^3/uL; Hematocrit 40.1 % (37-47); Hemoglobin 13.4 g/dL (12.0-15.0); Lymphocyte # 2.77 X10^3/ul (0.83-4.51); Lymphocyte % 22.6 % (19-41); Mean Corp Hgb Conc 33.4 g/dL (32-36); Mean Corpuscular Hgb 28.8 pg (27.0-32.0); Mean Corpuscular Volume 86.2 fL (81-99); Mean Platelet Vol. 9.9 fl (6.2-12.0); Monocyte# 0.75 X10^3/uL; Monocyte% 6.1 % (0-10); NRBC Flagged by Analyzer 0 % (0-5); Neutrophil # 8.43 X10^3/uL (2.7-7.7); Neutrophil % 68.6 % (47-70); Platelet Count 198 K/mm3 (150-450); RBC Distribution Width CV 12.7 % (11.6-14.6); Red Blood Count 4.65 M/mm3 (4.2-5.4); White Blood Count 12.3 K/mm3 (4.4-11.0)
[2023-08-26 12:36] LABS: Mucous, Urine 0 SEEN /hpf (<or=2+); Red Blood Cells-Urine 0 SEEN /hpf (0-5); Squamous Epithelial Cells - UA 0 SEEN /hpf (5-10)
[2023-08-26 12:39] LABS: Color, Urine Yellow (Yellow); Glucose, Dipstick 1000 mg/dl (Normal); Ketone-Dipstick 15 mg/dl (Negative); Leukocyte Esterase-Dipstick 100 /ul (Negative); Nitrite-Dipstick Positive (Negative); Occult Blood-Urine 150 /ul (Negative); Protein-Dipstick 15 mg/dl (Negative); Specific Gravity, Urine 1.015 (1.002-1.030); Urine Bilirubin Dipstick Negative (Negative); Urine Clarity Clear (Clear); Urine Urobilinogen Normal (Normal); Urine pH 6.5 (5.0 - 8.0)
[2023-08-26 12:41] LABS: Anion Gap 12 (5-15); BUN 26 mg/dL (7-18); BUN/Creat Ratio 24.5 RATIO (10-20); Calcium,Total 10.8 mg/dL (8.5-10.1); Chloride 104 mmol/L (98-107); Creatinine, Serum 1.06 mg/dL (0.55-1.02); EST Glomerular Filtration Rate 54 mL/min (>60); Est Glom Filt Rate - Afr Amer 65 mL/min (>60); Estimated Creatinine Clearance 50.92 ml/min; Glucose 302 mg/dL (74-106); Potassium 4.5 mmol/L (3.5-5.1); Sodium Level 136 mmol/L (136-145)
[2023-08-26] MEDS: Ziprasidone IM 20 MG/ML VIAL 10 MG IM (12:43)
[2023-08-26 12:45] LABS: Bacteria 2+ /hpf (None Seen); White Blood Cells 10-25 SEEN /hpf (0-5)
[2023-08-26 12:49] LABS: Valproic Acid (Depakene) Level 61 ug/mL (50-100)
--- NOTE | 2023-08-26 12:53 | ED.RN ---
STAFF FROM IN CALL TO GIVE REPORT. PT LAST KNOWN WELL ON 08/18/23
[2023-08-26] MEDS: Ceftriaxone 1 GM/50 ML BAG IV (13:12)
--- NOTE | 2023-08-26 13:13 | NURSING ---
PAGED HOSPITALIST THROUGH PHONE. NO INTERNET
--- NOTE | 2023-08-26 13:21 | NURSING ---
HOSPITALIST FOR [facility]
--- NOTE | 2023-08-26 13:27 | NURSING ---
MED SURG UTI AGYEPONG
--- NOTE | 2023-08-26 13:38 | HP.PCM.HOS_ITS ---
HPI - General General Date of Admission: 08/26/23 Date of Service: 08/26/23 Chief Complaint: increased confusion HPI Narrative JUANY RIVERS, is a 73 F with a significant history of alzheimer's disease; dementia; HTN and diabetes; and who lives at the shelter presenting to the ED with one week of persistent confusion above her baseline. Reportedly patient who is only alert but not oriented has had agitation which is above her baseline. At the ED, reportedly patient was crawling out of bed and was medicated with Haldol. [facility] Medical History Dementia Vertigo Diabetes Neuropathy Asthma Seizures Psychotic affective disorder High cholesterol Hypertension Home Medications ?Medication ?Instructions ?Recorded ?Last Taken ?Type gabapentin 800 mg tablet 800 mg PO TIDCM nerve pain 04/29/17 06/27/18 06:00 History levetiracetam 750 mg tablet 750 mg PO BID seizures 04/29/17 06/27/18 06:00 History losartan 100 mg tablet 100 mg PO DAILY blood pressure 04/29/17 05/31/17 06:00 History 50 MG montelukast 10 mg tablet 10 mg PO QHS 06/20/18 Unknown History atorvastatin 10 mg tablet 10 mg PO QHS 08/22/19 Unknown History acetaminophen 500 mg tablet 500 mg PO Q4H PRN PAIN/FEVER 01/15/21 Unknown History bisacodyl 10 mg rectal suppository 10 mg [place] DAILY PRN constipation 07/18/23 Unknown History dextrose 40 % oral gel (Glucose 10 g PO Q15M PRN hypoglycemia 07/18/23 Unknown History Gel) glucagon HCl 1 mg solution for 1 mg subcut Q20M PRN hypoglycemia 07/18/23 Unknown History injection (Glucagon (HCl) Emergency Kit) insulin lispro 100 unit/mL See Protocol subcut .COMPLEX 07/18/23 Unknown History subcutaneous pen magnesium hydroxide 400 mg/5 mL 30 ml PO DAILY PRN constipation 07/18/23 Unknown History oral suspension (Milk of Magnesia) mineral oil (Fleet Mineral Oil 118 ml [place] DAILY PRN constipation 07/18/23 Unknown History enema) nystatin 100,000 unit/gram topical 1 applic topical Q6H PRN skin 07/18/23 Unknown History powder irritation polyethylene glycol 3350 17 17 g PO DAILY 07/18/23 Unknown History gram/dose oral powder (Miralax) pramipexole 1.5 mg tablet 1.5 mg PO DAILY 07/18/23 Unknown History ziprasidone HCl 40 mg capsule 40 mg PO BID 07/18/23 Unknown History divalproex 250 mg tablet,delayed 250 mg PO QHS 08/26/23 Unknown History release divalproex 500 mg tablet,delayed 500 mg PO QHS bipolar 08/26/23 08/25/23 History release donepezil 5 mg tablet 5 mg PO QHS 08/26/23 Unknown History memantine 5 mg tablet 5 mg PO BID 08/26/23 Unknown History Allergy/AdvReac Type Severity Reaction Status Date / Time cyclobenzaprine HCl (From Allergy Other Verified 07/18/23 11:49 Flexeril) diphenhydramine HCl (From Allergy Other Verified 07/18/23 11:49 Benadryl) doxepin Allergy Other Verified 07/18/23 11:49 hydrocodone bitartrate (From Allergy Vomiting Verified 07/18/23 11:49 Vicodin) Iodinated Contrast Media Allergy PT UNSURE Verified 07/18/23 11:49 OF REACTION Iodine and Iodide Containing Allergy Other Verified 07/18/23 11:49 Produc lamotrigine (From Lamictal) Allergy PT UNSURE Verified 07/18/23 11:49 OF REACTION metformin Allergy PT UNSURE Verified 07/18/23 11:49 OF REACTION tositumomab iodine-131 Allergy PT UNSURE Verified 07/18/23 11:49 OF REACTION zolpidem Allergy PT UNSURE Verified 07/18/23 11:49 OF REACTION Social History Smoking Status: Never smoker Vital Signs Vital Signs Vital Signs: 08/26/23 12:04 Temperature 96.9 F L Temperature Source Temporal Pulse Rate 79 Respiratory Rate 21 H Blood Pressure 125/74 H Blood Pressure Mean 91 Pulse Ox 100 Oxygen Delivery Method Room Air Weight Weight: 85.1 kg Body Mass Index (BMI) 31.2 Physical Exam Narrative Pertinent positives and pertinent negatives as noted in HPI. All other systems were reviewed and are negative Results Lab / Micro Data 08/26/23 12:15 08/26/23 12:15 Labs: Laboratory Results - last 24 hr 08/26/23 12:15: WBC 12.3 H, RBC 4.65, Hgb 13.4, Hct 40.1, MCV 86.2, MCH 28.8, MCHC 33.4, RDW Std Deviation 39.0, RDW Coeff of Swati 12.7, Plt Count 198, MPV 9.9, Immature Gran % (Auto) 1.000 H, Neut % (Auto) 68.6, Lymph % (Auto) 22.6, [place] % (Auto) 6.1, Eos % (Auto) 1.0, Baso % (Auto) 0.7, Absolute Neuts (auto) 8.4 H, Absolute Lymphs (auto) 2.77, Nucleated RBC % 0, Sodium 136, Potassium 4.5, Chloride 104, Carbon Dioxide 20.0 L, Anion Gap 12, BUN 26 H, Creatinine 1.06 H, Estim Creat Clear Calc 50.92, Est GFR (MDRD) Af Amer 65, Est GFR (MDRD) Non-Af 54 L, BUN/Creatinine Ratio 24.5 H, Glucose 302 H, Calcium 10.8 H, Valproic Acid 61 08/26/23 12:30: Urine Color Yellow, Urine Clarity Clear, Urine pH 6.5, Ur Specific [place] 1.015, Urine Protein 15 H, Urine Glucose (UA) 1000 H, Urine Ketones 15 H, Urine Occult Blood 150 H, Urine Nitrite Positive H, Urine Bilirubin Negative, Urine Urobilinogen Normal, Ur Leukocyte Esterase 100 H, Urine RBC 0 SEEN, Urine WBC 10-25 SEEN, Ur Squamous Epith Cells 0 SEEN, Urine Bacteria 2+, Urine Mucus 0 SEEN Assessment & Plan Assessment/Plan (1) Acute UTI: (2) History of hypertension: (3) Acute encephalopathy: (4) History of type 1 diabetes mellitus: (5) History of diabetic neuropathy: PLAN: Plan Acute encephalopathy secondary to UTI Urinalysis was abnormal. Patient started on Rocephin in the emergency department and continued. History of hypertension Blood pressure on presentation was stable. Blood pressure medications continued. Trend. 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 Basal insulin ordered. Continue correction scale insulin ordered. DVT prophylaxis Subcutaneous Lovenox ordered. Advance directive: Patient is a full code per shelter. Time spent in the patient's overall evaluation,decision-making process, review of diagnostic data, adjustment of management, discussion with other providers, nursing and ancillary staff involved in patient's care documentation, 70 minutes. Charges/Coding Visit Charges Inpatient E&M: 59113 Init Hosp L3
[2023-08-26 14:03] VITALS: BP 116/70; PULSE 78; RESP 16; O2SAT 98
[2023-08-26 14:27] LABS: Lactic Acid 3.4 mmol/L (0.4-1.9)
--- NOTE | 2023-08-26 14:30 | CT_ITS ---
STUDY: CT BRAIN WITHOUT CONTRAST REASON FOR EXAM: Female, 73 years old. AMS RADIATION DOSAGE (If Supplied By Facility): CTDIvol = ( 44.99 ) mGy, DLP = ( 796.11 ) mGycm TECHNIQUE: Transaxial CT imaging of the brain was performed without administration of intravenous contrast material. Individualized dose optimization techniques were used for this CT. COMPARISON: July 18, 2023 FINDINGS: Normal soft tissue structures. Normal calvarium. There is moderate cerebral atrophy with widening of the extra-axial spaces and ventricular dilatation. There are areas of decreased attenuation within the white matter tracts of the supratentorial brain, consistent with microvascular disease changes. Normal basal ganglia and thalami. Normal brainstem. Normal cerebellum. There is no intracranial hemorrhage. There are no findings of an acute ischemic infarction. Normal visualized paranasal sinuses. CT/Brain/Head without Contrast IMPRESSION: Chronic involutional changes of the brain. Electronically Signed: Lakhwinder Campbell MD at 20:39 EDT ,
[2023-08-26 15:06] VITALS: RESP 18; BMI 31.2
[2023-08-26 15:10] LABS: AST(SGOT) 17 U/L (15-37); Alanine Aminotransfer ALT/SGPT 25 U/L (13-56); Albumin, Serum 3.8 g/dL (3.2-5.0); Alkaline Phosphatase 108 U/L (45-117); Bilirubin, Direct 0.17 mg/dL (0.00-0.30); Globulin 3.5 g/dL (2.2-4.2); Protein, Total 7.3 g/dL (6.4-8.2)
[2023-08-26 16:00] VITALS: BP 104/68; PULSE 78; RESP 18; TEMP 36.9; O2SAT 94
[2023-08-26] MEDS: 0.9% Normal Saline (1000mL) 1,000 ML 999 ML IV ×2 (16:09→17:07)
[2023-08-26 16:55] LABS: Bedside Glucose 266 mg/dL (74-106)
[2023-08-26] MEDS: Gabapentin 800 MG Tablet PO (17:05)
[2023-08-26] MEDS: Insulin Lispro 100 UNIT/ML INSULN.PEN SC (17:05)
[2023-08-26 17:32] VITALS: O2SAT 94
[2023-08-26 17:46] LABS: Reflex Lactate? Y
[2023-08-26 18:40] LABS: Lactic Acid 4.4 mmol/L (0.4-1.9)
[2023-08-26 20:32] VITALS: BP 110/67; PULSE 84; RESP 18; TEMP 36.6; O2SAT 98
[2023-08-26] MEDS: 0.9% Normal Saline (1000mL) 600 ML 999 ML IV (20:41)
[2023-08-26] MEDS: Divalproex Sodium 250 MG Tablet 500 MG PO (22:02)
[2023-08-26] MEDS: 0.9% Normal Saline (250mL Bag) 250 ML 15 ML IV (22:03)
[2023-08-26] MEDS: Atorvastatin Calcium 10 MG Tablet PO (22:03)
[2023-08-26] MEDS: Montelukast 10 MG Tablet PO (22:03)
[2023-08-26] MEDS: Piperacil/Tazobactam 3.375 GM in 0.9% Normal Saline (50mL MB+) 50 ML IV (22:03)
[2023-08-26] MEDS: Divalproex Sodium 250 MG Tablet PO (22:03)
[2023-08-26] MEDS: Ziprasidone HCl 20 MG Capsule 40 MG PO (22:04)
[2023-08-26] MEDS: Donepezil HCl 5 MG Tablet PO (22:04)
[2023-08-26] MEDS: levETIRAcetam 750 MG Tablet PO (22:04)
[2023-08-26] MEDS: Memantine Hydrochloride 5 MG Tablet PO (22:05)
[2023-08-27] MEDS: Insulin Glargine-YFGN 100 UNIT/ML Pen 15 UNIT SC (00:39)
[2023-08-27] MEDS: Insulin Lispro 100 UNIT/ML INSULN.PEN SC ×5 (00:40→22:59)
[2023-08-27 01:02] LABS: Bedside Glucose 212 mg/dL (74-106)
[2023-08-27] MEDS: Piperacil/Tazobactam 3.375 GM in 0.9% Normal Saline (50mL MB+) 50 ML IV ×2 (06:38→14:44)
[2023-08-27 06:42] VITALS: BP 139/70; PULSE 85; RESP 18; TEMP 36.8; O2SAT 100
[2023-08-27 06:53] VITALS: O2SAT 93
[2023-08-27 07:07] LABS: Bedside Glucose 217 mg/dL (74-106)
--- NOTE | 2023-08-27 07:10 | PCM.PN.HOSP ---
Reason for Visit Reason for Visit: Diagnoses Encephalopathy, unspecified (08/26/23) Urinary tract infection, site not specified (08/26/23) Personal history of other endocrine, nutritional and metabolic disease (08/26/23) Personal history of other diseases of the circulatory system (08/26/23) Objective Data Objective Data Vital Signs: Vital Signs Temp Pulse Resp BP Pulse Ox O2 Del Method 98.3 F 85 18 139/70 H 100 Room Air 08/27/23 06:42 08/27/23 06:42 08/27/23 06:42 08/27/23 06:42 08/27/23 06:42 08/27/23 06:42 Oxygen Delivery Method Room Air Weight: 187 lb 9.814 oz Body Mass Index (BMI) 31.2 Intake & Output: Intake and Output for Last 24 Hours 08/25/23 08/26/23 08/27/23 23:59 23:59 23:59 Intake Total 3384.2 / 3784.2 550 / 550 Output Total 250 / 1750 2500 / 2500 Balance 3134.2 / 2034.2 -1950 / -1950 Lab / Micro Data 08/27/23 06:35 08/27/23 06:35 Labs: Laboratory Results - last 24 hr 08/26/23 12:15: WBC 12.3 H, RBC 4.65, Hgb 13.4, Hct 40.1, MCV 86.2, MCH 28.8, MCHC 33.4, RDW Std Deviation 39.0, RDW Coeff of Swati 12.7, Plt Count 198, MPV 9.9, Immature Gran % (Auto) 1.000 H, Neut % (Auto) 68.6, Lymph % (Auto) 22.6, [place] % (Auto) 6.1, Eos % (Auto) 1.0, Baso % (Auto) 0.7, Absolute Neuts (auto) 8.4 H, Absolute Lymphs (auto) 2.77, Nucleated RBC % 0, Sodium 136, Potassium 4.5, Chloride 104, Carbon Dioxide 20.0 L, Anion Gap 12, BUN 26 H, Creatinine 1.06 H, Estim Creat Clear Calc 50.92, Est GFR (MDRD) Af Amer 65, Est GFR (MDRD) Non-Af 54 L, BUN/Creatinine Ratio 24.5 H, Glucose 302 H, Calcium 10.8 H, Total Bilirubin 0.60, Direct Bilirubin 0.17, AST 17, ALT 25, Alkaline Phosphatase 108, Total Protein 7.3, Albumin 3.8, Globulin 3.5, Valproic Acid 61 08/26/23 12:30: Urine Color Yellow, Urine Clarity Clear, Urine pH 6.5, Ur Specific [place] 1.015, Urine Protein 15 H, Urine Glucose (UA) 1000 H, Urine Ketones 15 H, Urine Occult Blood 150 H, Urine Nitrite Positive H, Urine Bilirubin Negative, Urine Urobilinogen Normal, Ur Leukocyte Esterase 100 H, Urine RBC 0 SEEN, Urine WBC 10-25 SEEN, Ur Squamous Epith Cells 0 SEEN, Urine Bacteria 2+, Urine Mucus 0 SEEN 08/26/23 13:42: Lactic Acid 3.4 H* 08/26/23 16:33: POC Glucose 266 H 08/26/23 18:00: Lactic Acid 4.4 H* 08/27/23 00:38: POC Glucose 212 H 08/27/23 06:36: POC Glucose 217 H Radiography Diagnostic Testing: Radiology Impression Chest X-Ray 08/26/23 12:14 IMPRESSION: No focal infiltrate or edema. Brain CT 08/26/23 14:30 IMPRESSION: Chronic involutional changes of the brain. Electronically Signed: Lakhwinder Campbell MD at 20:39 EDT , Physical Exam Narrative Seen and examined. Patient is confused and disoriented. Earlier on the day she was very agitated, trying to punch and kick. Orientation cues are provided. Sitter on the bedside. Physical exam General: Awake, disoriented, looks confused. Awake, confused, disoriented to time place and person. HEENT: Atraumatic, PERRLA, EOMI, Normocephalic Oral: Oral mucosa dry. No Gingival or Mucosal Lesions/ Ulcerations Neck: Supple, No JVD, Negative Carotid Bruits Chest wall/Lungs: Air entry diminished in bilateral lung bases. No crepitation/rhonchi Cardiovascular: Regular rate, Regular Rhythm, Normal S1, Normal S2, No M/G/R Abdomen: Bowel Sounds Present, Soft, Non Tender, Non-Distended : No/denies dysuria. No renal angle tenderness. No suprapubic tenderness. Extremities: No edema, Capillary Refill Less than 3 Seconds Skin: No rashes, No breakdown Musculoskeletal: No Tenderness to Palpation of Joints or Extremities. Muscle strength 4+/5 at major knees and hips joint Neurological: Nonfocal exam. DTR 2+/4. No acute focal neurological deficit. Psych/Mental Status: Overall confused. Delirium Assessment & Plan Assessment/Plan (1) Acute UTI: (2) Acute encephalopathy: PLAN: Plan 73-year-old female was admitted from [facility] for altered mental status with history of dementia and psychosis. Patient was agitated, hyperactive, inattention consistent with delirium. She was anxious noticed disoriented/acute AMS since August 17. 1. Acute encephalopathy, associated with delirium probably infectious and metabolic encephalopathy secondary to UTI Urinalysis was abnormal with positive nitrite, LE 100, WBC 10-25 cells. Mild leukocytosis. Prelim urine culture shows GNR lactose telegraph office manager more than thousand colonies. Chest x-ray does not show acute infiltrate or consolidation or edema. Patient was on Zosyn therefore discontinued and started on ceftriaxone. Lactic acidosis most likely from dehydration and clinically looks hypovolemic. IV fluid normal saline 1 L and then continue 75 mill per hour for further 1 L. Patient also on high-dose of gabapentin 900 mg 3 times daily decreased to 300 mg 3 times daily. Hold pramipexole. On Aricept. Namenda dose frequency decreased to once daily. Patient also on Geodon, Hold for lethargy/sedation. Patient on antiepileptic medications Keppra and Depakote, home medications continued. 2. History of hypertension Blood pressure on presentation was on baseline. Blood pressure medications continued. 3. 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 Lantus insulin dose increased. Accu-Chek before meals and at bedtime with Humalog sliding scale coverage. 4. DVT prophylaxis Subcutaneous Lovenox ordered. Advance directive: Patient is a full code per correction. Microbiology Past 72 Hours 08/26/23 12:30 Urine, Random Urine Culture - Preliminary GNR lactose telegraph office manager Laboratory Results 08/26/23 16:33: POC Glucose 266 H 08/26/23 18:00: Lactic Acid 4.4 H* 08/27/23 00:38: POC Glucose 212 H 08/27/23 06:35: WBC 12.9 H, RBC 4.54, Hgb 13.3, Hct 38.2, MCV 84.1, MCH 29.3, MCHC 34.8, RDW Std Deviation 37.1, RDW Coeff of Swati 12.3, Plt Count 190, MPV 10.0, Immature Gran % (Auto) 0.300, Neut % (Auto) 69.3, Lymph % (Auto) 23.1, [place] % (Auto) 6.0, Eos % (Auto) 0.9, Baso % (Auto) 0.4, Absolute Neuts (auto) 9.0 H, Absolute Lymphs (auto) 2.99, Nucleated RBC % 0, Sodium 139, Potassium 3.7, Chloride 111 H, Carbon Dioxide 19.0 L, Anion Gap 9, BUN 14, Creatinine 0.78, Estim Creat Clear Calc 67.47, Est GFR (MDRD) Af Amer 93, Est GFR (MDRD) Non-Af 77, BUN/Creatinine Ratio 18.0, Glucose 214 H, Lactic Acid 2.7 H*, Calcium 9.8 08/27/23 06:36: POC Glucose 217 H 08/27/23 10:56: Lactic Acid 3.2 H* 08/27/23 11:31: POC Glucose 238 H Clinical Impression(s) from Imaging Studies Chest X-Ray 08/26/23 12:14 IMPRESSION: No focal infiltrate or edema. Brain CT 08/26/23 14:30 IMPRESSION: Chronic involutional changes of the brain. Charges/Coding Visit Charges Inpatient E&M: 41668 Subs Hosp L2
[2023-08-27 07:12] LABS: Absolute Lymphocyte Count 2.99 X10^3/uL (0.83-4.51); Basophil# 0.05 X10^3/uL; Basophil% 0.4 % (0-1); Eosinophil# 0.11 X10^3/uL; Eosinophils% 0.9 % (0-5); Hematocrit 38.2 % (37-47); Hemoglobin 13.3 g/dL (12.0-15.0); Lymphocyte # 2.99 X10^3/ul (0.83-4.51); Lymphocyte % 23.1 % (19-41); Mean Corp Hgb Conc 34.8 g/dL (32-36); Mean Corpuscular Hgb 29.3 pg (27.0-32.0); Mean Corpuscular Volume 84.1 fL (81-99); Monocyte# 0.78 X10^3/uL; NRBC Flagged by Analyzer 0 % (0-5); Neutrophil # 8.95 X10^3/uL (2.7-7.7); Neutrophil % 69.3 % (47-70); Platelet Count 190 K/mm3 (150-450); RBC Distribution Width CV 12.3 % (11.6-14.6); RBC Distribution Width SD 37.1 fl (35.1-43.9); Red Blood Count 4.54 M/mm3 (4.2-5.4); White Blood Count 12.9 K/mm3 (4.4-11.0)
[2023-08-27 07:31] LABS: Lactic Acid 2.7 mmol/L (0.4-1.9)
[2023-08-27 07:32] LABS: Anion Gap 9 (5-15); BUN 14 mg/dL (7-18); Calcium,Total 9.8 mg/dL (8.5-10.1); Chloride 111 mmol/L (98-107); Creatinine, Serum 0.78 mg/dL (0.55-1.02); EST Glomerular Filtration Rate 77 mL/min (>60); Est Glom Filt Rate - Afr Amer 93 mL/min (>60); Estimated Creatinine Clearance 67.47 ml/min; Glucose 214 mg/dL (74-106); Potassium 3.7 mmol/L (3.5-5.1); Sodium Level 139 mmol/L (136-145)
[2023-08-27] MEDS: 0.9% Normal Saline (1000mL) 1,000 ML 75 ML IV ×3 (08:54→17:45)
[2023-08-27] MEDS: Gabapentin 800 MG Tablet PO ×2 (08:54→12:36)
[2023-08-27] MEDS: Ziprasidone HCl 20 MG Capsule 40 MG PO ×2 (08:55→19:53)
[2023-08-27] MEDS: levETIRAcetam 750 MG Tablet PO ×2 (08:56→19:53)
[2023-08-27] MEDS: Enoxaparin 40 MG/0.4 ML Syringe SC (08:56)
[2023-08-27] MEDS: Memantine Hydrochloride 5 MG Tablet PO (08:56)
[2023-08-27] MEDS: Pramipexole Di-HCl 0.5 MG Tablet 1.5 MG PO (08:58)
[2023-08-27] MEDS: Polyethylene Glycol 3350 17 GM PACKET PO (08:58)
[2023-08-27 10:36] VITALS: BP 125/76; PULSE 86; RESP 18; TEMP 37.1; O2SAT 94
[2023-08-27 10:46] LABS: Reflex Lactate? Y
[2023-08-27 11:36] LABS: Lactic Acid 3.2 mmol/L (0.4-1.9)
[2023-08-27 11:57] LABS: Bedside Glucose 238 mg/dL (74-106)
[2023-08-27 16:10] VITALS: BP 115/69; PULSE 68; RESP 18; TEMP 36.9; O2SAT 68
[2023-08-27 16:11] VITALS: BP 115/69; PULSE 68; RESP 18; TEMP 37.1; O2SAT 98
[2023-08-27] MEDS: 0.9% Normal Saline (1000mL) 1,000 ML 999 ML IV (16:18)
[2023-08-27] MEDS: Gabapentin 300 MG Capsule PO (16:26)
[2023-08-27 16:56] LABS: Bedside Glucose 210 mg/dL (74-106)
[2023-08-27 19:45] VITALS: BP 101/80; PULSE 77; RESP 18; TEMP 36.6; O2SAT 100
[2023-08-27] MEDS: Divalproex Sodium 250 MG Tablet 500 MG PO (19:52)
[2023-08-27] MEDS: MELATONIN 3 MG TABLET PO (19:53)
[2023-08-27] MEDS: Donepezil HCl 5 MG Tablet PO (19:53)
[2023-08-27] MEDS: Montelukast 10 MG Tablet PO (19:53)
[2023-08-27] MEDS: Atorvastatin Calcium 10 MG Tablet PO (19:54)
[2023-08-27] MEDS: Divalproex Sodium 250 MG Tablet PO (19:54)
[2023-08-27] MEDS: Insulin Glargine-YFGN 100 UNIT/ML Pen 20 UNIT SC (23:00)
[2023-08-27] MEDS: 0.9% Saline Lock 10 ML Syringe IV (23:01)
[2023-08-27 23:20] LABS: Bedside Glucose 175 mg/dL (74-106)
[2023-08-28] MEDS: 0.9% Normal Saline (250mL Bag) 250 ML 15 ML IV (06:22)
[2023-08-28 06:25] VITALS: BP 133/106; PULSE 65; RESP 18; TEMP 36.6; O2SAT 100
[2023-08-28] MEDS: Insulin Lispro 100 UNIT/ML INSULN.PEN SC ×4 (06:31→20:21)
[2023-08-28 06:50] LABS: Bedside Glucose 173 mg/dL (74-106)
[2023-08-28 07:20] LABS: Absolute Lymphocyte Count 2.38 X10^3/uL (0.83-4.51); Absolute Neutrophil Count 4.1 X10^3/uL (2.0-7.7); Basophil# 0.06 X10^3/uL; Basophil% 0.8 % (0-1); Eosinophil# 0.21 X10^3/uL; Eosinophils% 2.9 % (0-5); Hematocrit 37.8 % (37-47); Hemoglobin 12.5 g/dL (12.0-15.0); Lymphocyte # 2.38 X10^3/ul (0.83-4.51); Lymphocyte % 32.8 % (19-41); Mean Corp Hgb Conc 33.1 g/dL (32-36); Mean Corpuscular Hgb 28.6 pg (27.0-32.0); Mean Corpuscular Volume 86.5 fL (81-99); Mean Platelet Vol. 9.6 fl (6.2-12.0); Monocyte# 0.52 X10^3/uL; Monocyte% 7.2 % (0-10); NRBC Flagged by Analyzer 0 % (0-5); Neutrophil # 4.05 X10^3/uL (2.7-7.7); Neutrophil % 55.9 % (47-70); Platelet Count 171 K/mm3 (150-450); RBC Distribution Width CV 12.9 % (11.6-14.6); RBC Distribution Width SD 40.2 fl (35.1-43.9); Red Blood Count 4.37 M/mm3 (4.2-5.4); White Blood Count 7.3 K/mm3 (4.4-11.0)
[2023-08-28 07:47] LABS: Anion Gap 6 (5-15); BUN 10 mg/dL (7-18); BUN/Creat Ratio 16.6 RATIO (10-20); Calcium,Total 9.4 mg/dL (8.5-10.1); Chloride 115 mmol/L (98-107); EST Glomerular Filtration Rate 104 mL/min (>60); Est Glom Filt Rate - Afr Amer 125 mL/min (>60); Estimated Creatinine Clearance 67.43 ml/min; Glucose 151 mg/dL (74-106); Potassium 4.1 mmol/L (3.5-5.1); Sodium Level 141 mmol/L (136-145)
[2023-08-28 07:52] LABS: Valproic Acid (Depakene) Level 64 ug/mL (50-100)
--- NOTE | 2023-08-28 09:27 | CASEMGMT ---
Social Work- called [facility] to validate HCPOA. Donna at [facility] states that they do not have HCPOA or Living Will documents for pt. Donna states that they have been pursuing obtaining a guardian for pt, cih should be finalized next week. Donna states that pt daughter, Paris Canas, is not interested in participating in pt care or being present in her life and has not cooperated with [facility] and asked to not be contacted by them. Donna states the friend listed as a contact lives out of state and is not interested in being HCPOA, but helped track pt daughter down. The individual listed as the supervisor contact and service clerks on [facility] face sheet is unknown to [facility]. Clinical updates sent to [facility], whom was willing to accept pt back. JOSEFINA Martinez
[2023-08-28] MEDS: Ziprasidone HCl 20 MG Capsule 40 MG PO ×2 (09:42→19:57)
[2023-08-28] MEDS: Gabapentin 300 MG Capsule PO ×3 (09:42→17:22)
[2023-08-28] MEDS: levETIRAcetam 750 MG Tablet PO ×2 (09:43→19:57)
[2023-08-28] MEDS: Enoxaparin 40 MG/0.4 ML Syringe SC (09:44)
[2023-08-28] MEDS: Memantine Hydrochloride 5 MG Tablet PO (09:45)
[2023-08-28] MEDS: Polyethylene Glycol 3350 17 GM PACKET PO (09:49)
[2023-08-28] MEDS: Ceftriaxone 1 GM/50 ML BAG IV (09:49)
[2023-08-28 09:53] VITALS: BP 136/86; PULSE 95; RESP 20; TEMP 36.9; O2SAT 100
[2023-08-28 09:55] VITALS: BP 136/86; PULSE 95; RESP 20; TEMP 36.9; O2SAT 100
--- NOTE | 2023-08-28 11:36 | CASEMGMT ---
Addendum entered by Marisol Chau 08/28/23 13:31: Patient can return under her [facility] benefits. Marisol Chau DC Planning Asst. Original Note: Discharge Planning Updates sent to [facility] [place] [facility] [place]. Asked if patient can return under her [facility] benefits. Awaiting response. Marisol Chau DC Planning Asst.
--- NOTE | 2023-08-28 12:56 | PN.HOSP_ITS ---
Reason for Visit Reason for Visit: Diagnoses Encephalopathy, unspecified (08/26/23) Urinary tract infection, site not specified (08/26/23) Personal history of other endocrine, nutritional and metabolic disease (08/26/23) Personal history of other diseases of the circulatory system (08/26/23) Subjective Subjective No acute events overnight. Patient seen at bedside this morning. Sitter also present at bedside. Per sitter, patient was somewhat agitated this morning and trying to get out of her bedside chair, but she was redirectable. Patient was making appropriate eye contact with me and appeared to be understanding my questions. When asked where she was, she was able to tell me she was in the hospital but did not know which hospital. She also answered that she lives in a fdc but could not tell me which fdc. She denied any acute pain or discomfort. She denied feeling anxious or agitated. No other acute concerns. Objective Data Objective Data Vital Signs: Vital Signs Temp Pulse Resp BP Pulse Ox O2 Del Method 98.5 F 95 20 H 136/86 H 100 Room Air 08/28/23 09:55 08/28/23 09:55 08/28/23 09:55 08/28/23 09:55 08/28/23 09:55 08/28/23 09:55 Oxygen Delivery Method Room Air Weight: 85 kg Body Mass Index (BMI) 31.2 Intake & Output: Intake and Output for Last 24 Hours 08/26/23 08/27/23 08/28/23 23:59 23:59 23:59 Intake Total 3384.2 / 3784.2 3440.00 / 3440.00 2238.75 / 2238.75 Output Total 250 / 1750 3925 / 3925 3300 / 3300 Balance 3134.2 / 2034.2 -485.00 / -485.00 -1061.25 / -1061.25 Lab / Micro Data 08/28/23 06:30 08/28/23 06:30 Labs: Laboratory Results - last 24 hr 08/27/23 16:05: POC Glucose 210 H 08/27/23 22:59: POC Glucose 175 H 08/28/23 06:30: WBC 7.3, RBC 4.37, Hgb 12.5, Hct 37.8, MCV 86.5, MCH 28.6, MCHC 33.1, RDW Std Deviation 40.2, RDW Coeff of Swati 12.9, Plt Count 171, MPV 9.6, Immature Gran % (Auto) 0.400, Neut % (Auto) 55.9, Lymph % (Auto) 32.8, Corson % (Auto) 7.2, Eos % (Auto) 2.9, Baso % (Auto) 0.8, Absolute Neuts (auto) 4.1, Absolute Lymphs (auto) 2.38, Nucleated RBC % 0, Sodium 141, Potassium 4.1, C hloride 115 H, Carbon Dioxide 20.0 L, Anion Gap 6, BUN 10, Creatinine 0.60, Estim Creat Clear Calc 67.43, Est GFR (MDRD) Af Amer 125, Est GFR (MDRD) Non-Af 104, BUN/Creatinine Ratio 16.6, Glucose 151 H, Calcium 9.4, Valproic Acid 64, P OC Glucose 173 H Micro: Microbiology 08/26/23 12:30 Urine, Random Urine Culture - Final Raoultella planticola Physical Exam Const alert, no apparent distress and average body habitus Constitutional Narrative: Elderly female, obese, alert and making appropriate eye contact but not answering all questions appropriately, otherwise with mild agitation noted but sitting up fairly comfortably in bedside chair and in no acute distress. General Appearance: cooperative and comfortable HEENT normocephalic, head/scalp atraumatic, hearing grossly normal bilaterally and nasal mucous membranes and turbinates normal Eyes PERRL, EOMs intact bilaterally and conjunctivae normal Neck full ROM Chest inspection of chest normal Resp normal respiratory effort, normal air movement, no use of accessory muscles and clear to auscultation bilaterally Cardio regular rate, regular rhythm, no murmurs and peripheral pulses 2+ throughout GI normal to inspection, nondistended, normoactive bowel sounds, soft to palpation, non-tender and non-distended Back/Spine normal ROM Extremity normal to inspection, full ROM and no pedal edema Skin no rashes or lesions noted Neuro moves all extremities and no focal motor deficits Assessment & Plan Assessment/Plan (1) Acute encephalopathy: (2) Acute UTI: (3) Seizure disorder: (4) Dementia: PLAN: Plan Patient is a 73-year-old female who presented to [facility] ED on 08/26/2023 from fdc for altered mental status. 1. Acute encephalopathy (multifactorial) in setting of known dementia with psychosis ? Suspected multifactorial with infectious, toxic and metabolic components. ? UA with positive nitrites and leukocyte esterase on admit. Urine culture growing > 100K gram-negative rods susceptible to ceftriaxone. Continue treatment with ceftriaxone while inpatient, can de-escalate to Keflex on discharge. ? Mild persistent lactic acidosis suspected secondary to hypovolemia from dehydration on admission, improved with IV fluids. ? Medication regimen on admission of gabapentin 800 mg 3 times daily, divalproex 750 mg at night, levetiracetam 750 mg twice daily, memantine 5 mg twice daily, donepezil 5 mg at night, Geodon 40 mg twice daily, pramipexole 1.5 mg daily. Decrease gabapentin dose to 300 mg 3 times daily, memantine dose to 5 mg daily and held home pramipexole with good improvement in mental status. Appears to be close to baseline on 08/27. If remains stable on 08/28, likely okay for discharge back to fdc. 2. Acute cystitis ? Continue treatment with ceftriaxone as noted above. Okay to de-escalate to Keflex on discharge, will plan for 7-day course of antibiotics total. Chronic medical conditions: ? Obesity: BMI 31 on admit. Complicates hospital course, care and prognosis. ? Hypertension: Stable. Continue home losartan. ? Type 1 diabetes with hyperglycemia with diabetic neuropathy: Appears at home regimen is only sliding scale insulin. Hyperglycemia to high 200s on admission. Has had good blood sugar control with Lantus 20 units at night and sliding scale insulin with meals, continue to adjust as needed. Continue gabapentin at reduced dose as noted above. ? Hyperlipidemia: Continue home statin. ? Seizure disorder: Continue home divalproex and levetiracetam. DVT prophylaxis: Lovenox CODE STATUS: Full code, verified Expected disposition: Back to fdc, 1 to 2 days Total clinical time spent by myself addressing the patient's medical issues, reviewing all the data, and collaborating with patient's care team: 35 minutes. Charges/Coding Visit Charges Inpatient E&M: 11468 Subs Hosp L2
[2023-08-28 12:58] VITALS: O2SAT 92
[2023-08-28 14:58] LABS: Bedside Glucose 247 mg/dL (74-106)
[2023-08-28 16:18] VITALS: BP 127/67; PULSE 82; RESP 18; TEMP 36.8; O2SAT 99
[2023-08-28 16:38] LABS: Bedside Glucose 188 mg/dL (74-106)
[2023-08-28] MEDS: Acetaminophen 500 MG Tablet PO ×2 (17:38→21:18)
[2023-08-28] MEDS: Divalproex Sodium 250 MG Tablet 500 MG PO (19:57)
[2023-08-28] MEDS: Donepezil HCl 5 MG Tablet PO (19:57)
[2023-08-28] MEDS: Montelukast 10 MG Tablet PO (19:58)
[2023-08-28] MEDS: Divalproex Sodium 250 MG Tablet PO (19:58)
[2023-08-28] MEDS: Atorvastatin Calcium 10 MG Tablet PO (19:58)
[2023-08-28 20:04] VITALS: BP 126/62; PULSE 83; RESP 16; TEMP 36.9; O2SAT 99
[2023-08-28] MEDS: Insulin Glargine-YFGN 100 UNIT/ML Pen 20 UNIT SC (20:22)
[2023-08-28 20:42] LABS: Bedside Glucose 242 mg/dL (74-106)
[2023-08-28] MEDS: MELATONIN 3 MG TABLET PO (21:20)
--- NOTE | 2023-08-28 22:17 | PCM.HOSP.N ---
Hospitalist Note Patient with agitation despite administration of her psychiatric medications. Will dose with low-dose Seroquel x 1.
[2023-08-29 04:07] VITALS: BP 113/60; PULSE 79; RESP 16; TEMP 36.7; O2SAT 97
[2023-08-29] MEDS: Insulin Lispro 100 UNIT/ML INSULN.PEN SC ×2 (06:45→11:06)
[2023-08-29 06:59] LABS: Absolute Lymphocyte Count 2.28 X10^3/uL (0.83-4.51); Absolute Neutrophil Count 3.6 X10^3/uL (2.0-7.7); Basophil# 0.06 X10^3/uL; Basophil% 0.9 % (0-1); Eosinophil# 0.21 X10^3/uL; Eosinophils% 3.2 % (0-5); Hematocrit 39.7 % (37-47); Hemoglobin 12.9 g/dL (12.0-15.0); Lymphocyte # 2.28 X10^3/ul (0.83-4.51); Lymphocyte % 34.5 % (19-41); Mean Corp Hgb Conc 32.5 g/dL (32-36); Mean Corpuscular Hgb 28.8 pg (27.0-32.0); Mean Corpuscular Volume 88.6 fL (81-99); Mean Platelet Vol. 9.7 fl (6.2-12.0); Monocyte# 0.49 X10^3/uL; Monocyte% 7.4 % (0-10); NRBC Flagged by Analyzer 0 % (0-5); Neutrophil # 3.55 X10^3/uL (2.7-7.7); Neutrophil % 53.7 % (47-70); Platelet Count 180 K/mm3 (150-450); RBC Distribution Width SD 42.1 fl (35.1-43.9); Red Blood Count 4.48 M/mm3 (4.2-5.4); White Blood Count 6.6 K/mm3 (4.4-11.0)
[2023-08-29 07:01] LABS: Bedside Glucose 269 mg/dL (74-106)
[2023-08-29] MEDS: Polyethylene Glycol 3350 17 GM PACKET PO (07:27)
[2023-08-29] MEDS: Ziprasidone HCl 20 MG Capsule 40 MG PO (07:27)
[2023-08-29] MEDS: Enoxaparin 40 MG/0.4 ML Syringe SC (07:27)
[2023-08-29] MEDS: Memantine Hydrochloride 5 MG Tablet PO (07:27)
[2023-08-29] MEDS: levETIRAcetam 750 MG Tablet PO (07:27)
[2023-08-29] MEDS: Gabapentin 300 MG Capsule PO ×2 (07:30→11:09)
[2023-08-29 07:45] LABS: Anion Gap 10 (5-15); BUN 15 mg/dL (7-18); BUN/Creat Ratio 16.1 RATIO (10-20); Calcium,Total 9.7 mg/dL (8.5-10.1); Chloride 111 mmol/L (98-107); Creatinine, Serum 0.93 mg/dL (0.55-1.02); EST Glomerular Filtration Rate 63 mL/min (>60); Est Glom Filt Rate - Afr Amer 76 mL/min (>60); Glucose 278 mg/dL (74-106); Potassium 4.1 mmol/L (3.5-5.1); Sodium Level 140 mmol/L (136-145)
[2023-08-29 09:01] VITALS: BP 122/65; PULSE 73; RESP 16; TEMP 36.6; O2SAT 99
[2023-08-29] MEDS: Ceftriaxone 1 GM/50 ML BAG IV (09:38)
[2023-08-29 11:08] VITALS: O2SAT 91
[2023-08-29] MEDS: Acetaminophen 500 MG Tablet PO (11:09)
--- NOTE | 2023-08-29 11:23 | TREXTCAR_ITS ---
Diet Diet Order/Speech Therapy: 08/26/23 16:25 Diet: Consistent Carb - Calorie Controlled Food consistency:: Regular Liquid Consistency:: Regular/Thin How many daily calories?: 1800 calorie Routine Orders/Code Status Code Status: Full Code Wound(s) right elbow: Wound Type: Skin Tear left great toe: Wound Type: Neuropathic/Diabetic Foot Ulcer Therapies Weight Bearing: Full weight bearing Problem/Diagnosis (1) Acute encephalopathy: Status: Acute Code(s): G93.40 - Encephalopathy, unspecified (2) Acute UTI: Status: Acute Code(s): N39.0 - Urinary tract infection, site not specified (3) Seizure disorder: Status: Chronic Code(s): G40.909 - Epilepsy, unspecified, not intractable, without status epilepticus (4) Dementia: Status: Acute Code(s): F03.90 - Unspecified dementia, unspecified severity, without behavioral disturbance, psychotic disturbance, mood disturbance, and anxiety Plan Patient is a 73-year-old female who presented to [facility] ED on 08/26/2023 from [facility] for altered mental status. Hospital course as noted below. Discharged back to [facility] in stable condition on 08/28. 1. Acute encephalopathy (multifactorial) in setting of known dementia with psychosis ? Suspected multifactorial with infectious, toxic and metabolic components. ? UA with positive nitrites and leukocyte esterase on admit. Urine culture growing > 100K gram-negative rods susceptible to ceftriaxone. Continue treatment with ceftriaxone while inpatient, can de-escalate to Keflex on discharge. ? Mild persistent lactic acidosis suspected secondary to hypovolemia from dehydration on admission, improved with IV fluids. ? Medication regimen on admission of gabapentin 800 mg 3 times daily, divalproex 750 mg at night, levetiracetam 750 mg twice daily, memantine 5 mg twice daily, donepezil 5 mg at night, Geodon 40 mg twice daily, pramipexole 1.5 mg daily. Decrease gabapentin dose to 300 mg 3 times daily, memantine dose to 5 mg daily and held home pramipexole with good improvement in mental status. ? Stable for discharge back to [facility] on 08/28. Will continue medications with changes here as noted above. 2. Acute cystitis ? Treated with ceftriaxone as noted above. De-escalated to Keflex on discharge for 7-day course total, stop date 09/02. Chronic medical conditions: ? Obesity: BMI 31 on admit. Complicated hospital course, care and prognosis. ? Hypertension: Stable. Continue home losartan. ? 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 Hyperglycemia to high 200s on admission. Had good blood sugar control with Lantus 20 units at night and sliding scale insulin with meals, will continue this on discharge. Continue gabapentin at reduced dose as noted above. ? Hyperlipidemia: Continue home statin. ? Seizure disorder: Continue home divalproex and levetiracetam. Total clinical time spent by myself addressing the patient's medical issues, reviewing all the data, and collaborating with patient's care team: 35 minutes. Allergies/Procedures Done in Hospital Allergies cyclobenzaprine HCl (From Flexeril) Allergy (Verified 07/18/23 11:49) Other diphenhydramine HCl (From Benadryl) Allergy (Verified 07/18/23 11:49) Other doxepin Allergy (Verified 07/18/23 11:49) Other hydrocodone bitartrate (From Vicodin) Allergy (Verified 07/18/23 11:49) Vomiting Iodinated Contrast Media Allergy (Verified 07/18/23 11:49) PT UNSURE OF REACTION Iodine and Iodide Containing Produc Allergy (Verified 07/18/23 11:49) Other lamotrigine (From Lamictal) Allergy (Verified 07/18/23 11:49) PT UNSURE OF REACTION metformin Allergy (Verified 07/18/23 11:49) PT UNSURE OF REACTION tositumomab iodine-131 Allergy (Verified 07/18/23 11:49) PT UNSURE OF REACTION zolpidem Allergy (Verified 07/18/23 11:49) PT UNSURE OF REACTION Procedures: - (Chest x-ray, CT brain without contrast) Type of Care/Length of Stay Estimated LOS: More Than 30 Days Type of Care Needed: Intermediate Rehab Potential: Fair Prognosis: Fair Additional Orders/Day of Discharge H&P will serve as current which was dated: 08/26/23 Day of Discharge: 08/29/23 Dietary and Speech Recommendations Dietitian Recommendations/Changes: Continue current diet order per MD: 1800 kcal, carb controlled. If meal intake becomes <50%, will consider supplementation of energy and protein. Discharge Plan Admission Admit Date/Time: 08/26/23 13:24 Primary Reason for Your Visit: Altered mentation, UTI Attending Provider: Clif Evans Primary Care Provider: Yared Mendoza Consulting Providers: Delfin No; Miller Dunbar Discharge Orders/Prescriptions Prescriptions: New gabapentin 300 mg Capsule 300 mg PO TIDCM Qty: 0 0RF insulin lispro [Humalog KwikPen Insulin] 100 unit/mL Insulin Pen See Protocol subcut ACHS Qty: 0 0RF Protocol: 4. Sliding Scale Insulin High-Med Dosing Condition: 150-199 mg/dl = 2 units Condition: 200-259 mg/dl = 4 units Condition: 260-324 mg/dl = 6 units Condition: 325-374 mg/dl = 8 units Condition: 375-409 mg/dl = 10 units Condition: 410-449 mg/dl = 11 units Condition: Greater than 449 call physician Protocol Text: - Use for Total Daily Dose of Insulin 56-80 units - Patient who are insulin resistant or septic HIGH MEDIUM DOSING ALGORITHM memantine 5 mg Tablet 5 mg PO DAILY Qty: 0 0RF insulin glargine-yfgn 100 unit/mL (3 mL) Insulin Pen 20 unit subcut QHS Qty: 0 0RF Continued levetiracetam 750 MG tablet 750 mg PO BID losartan 100 MG tablet 100 mg PO DAILY montelukast 10 MG tablet 10 mg PO QHS atorvastatin 10 MG tablet 10 mg PO QHS acetaminophen 500 mg Tablet 500 mg PO Q4H PRN (Reason: PAIN/FEVER) bisacodyl 10 mg suppository 10 mg MD DAILY PRN (Reason: constipation) mineral oil [Fleet Mineral Oil] Enema 118 ml MD DAILY PRN (Reason: constipation) glucagon HCl [Glucagon (HCl) Emergency Kit] 1 mg recon soln 1 mg subcut Q20M PRN (Reason: hypoglycemia) Rx Instructions: until target blood sugar attained dextrose [Glucose Gel] 40 % gel 10 g PO Q15M PRN (Reason: hypoglycemia) Rx Instructions: until symptoms of low blood sugar are controlled magnesium hydroxide [Milk of Magnesia] 400 mg/5 mL suspension 30 ml PO DAILY PRN (Reason: constipation) Rx Instructions: ADMINISTER ONCE DAILY IF NO BM IN 3 DAYS nystatin 100,000 unit/gram powder 1 applic topical Q6H PRN (Reason: skin irritation) polyethylene glycol 3350 [Miralax] 17 gram/dose powder 17 g PO DAILY pramipexole 1.5 mg tablet 1.5 mg PO DAILY ziprasidone HCl 40 mg capsule 40 mg PO BID donepezil 5 mg tablet 5 mg PO QHS divalproex 250 mg tablet,delayed release (DR/EC) 250 mg PO QHS divalproex 500 mg tablet,delayed release (DR/EC) 500 mg PO QHS Discontinued gabapentin 800 MG tablet 800 mg PO TIDCM insulin lispro 100 unit/mL insulin pen See Protocol subcut .COMPLEX Protocol: 6. Sliding Scale Insulin Custom Condition: mg/dl range Dose/Route: Number of Units Condition: 0-100 Dose/Route: 0 Condition: 101-150 Dose/Route: 2 Condition: 151-200 Dose/Route: 4 Condition: 201-250 Dose/Route: 6 Condition: 251-300 Dose/Route: 8 Condition: 301-350 Dose/Route: 10 Condition: 351-400 Dose/Route: 12 Condition: 401+ Dose/Route: CALL MD Protocol Text: Custom Sliding Scale Rx Instructions: subcutaneously; TID CM AND HS memantine 5 mg tablet 5 mg PO BID Referrals / Follow Up: Yared Mendoza MD [Primary Care Provider] - Disposition Disposition (needs filled in before D/C Order can be placed): Design/Animation Instructor Acute Care
[2023-08-29 11:25] VITALS: BP 154/55; PULSE 106; RESP 20; TEMP 36.5; O2SAT 98
--- NOTE | 2023-08-29 11:33 | PCM.DC.SUM ---
Providers Date of Admission: 08/26/23 Date of Discharge: 08/29/23 Primary Care Physician: Dr. Yared Mendoza MD Reason For Visit: ACUTE ENCEPHALOPATHY DUE TO ACUTE CYSTITIS Diagnosis Discharge Diagnosis (1) Acute encephalopathy: Status: Acute Code(s): G93.40 - Encephalopathy, unspecified (2) Acute UTI: Status: Acute Code(s): N39.0 - Urinary tract infection, site not specified (3) Seizure disorder: Status: Chronic Code(s): G40.909 - Epilepsy, unspecified, not intractable, without status epilepticus (4) Dementia: Status: Acute Code(s): F03.90 - Unspecified dementia, unspecified severity, without behavioral disturbance, psychotic disturbance, mood disturbance, and anxiety Medications at Discharge Home Medications levetiracetam 750 mg tablet 750 mg PO BID seizures 04/29/17 losartan 100 mg tablet 100 mg PO DAILY blood pressure 04/29/17 montelukast 10 mg tablet 10 mg PO QHS 06/20/18 atorvastatin 10 mg tablet 10 mg PO QHS 08/22/19 acetaminophen 500 mg tablet 500 mg PO Q4H PRN PAIN/FEVER 01/15/21 bisacodyl 10 mg rectal suppository 10 mg SC DAILY PRN constipation 07/18/23 dextrose 40 % oral gel (Glucose Gel) 10 g PO Q15M PRN hypoglycemia 07/18/23 glucagon HCl 1 mg solution for injection (Glucagon (HCl) Emergency Kit) 1 mg subcut Q20M PRN hypoglycemia 07/18/23 magnesium hydroxide 400 mg/5 mL oral suspension (Milk of Magnesia) 30 ml PO DAILY PRN constipation 07/18/23 mineral oil (Fleet Mineral Oil enema) 118 ml SC DAILY PRN constipation 07/18/23 nystatin 100,000 unit/gram topical powder 1 applic topical Q6H PRN skin irritation 07/18/23 polyethylene glycol 3350 17 gram/dose oral powder (Miralax) 17 g PO DAILY 07/18/23 pramipexole 1.5 mg tablet 1.5 mg PO DAILY 07/18/23 ziprasidone HCl 40 mg capsule 40 mg PO BID 07/18/23 divalproex 250 mg tablet,delayed release 250 mg PO QHS 08/26/23 divalproex 500 mg tablet,delayed release 500 mg PO QHS bipolar 08/26/23 donepezil 5 mg tablet 5 mg PO QHS 08/26/23 gabapentin 300 mg capsule 300 mg PO TIDCM #0 caps 08/29/23 insulin glargine-yfgn 100 unit/mL (3 mL) subcutaneous pen 20 unit (0.2 mL) subcut QHS #0 mL 08/29/23 insulin lispro 100 unit/mL subcutaneous pen (Humalog KwikPen (U-100) Insulin) See Protocol subcut ACHS #0 mL 08/29/23 memantine 5 mg tablet 5 mg PO DAILY #0 tabs 08/29/23 Hospital Course Operations None Procedures - (Chest x-ray, CT brain without contrast) Summary of Care Provided Minutes Spent on Discharge: 35 Hospital Course: Patient is a 73-year-old female who presented to [facility] ED [facility] for altered mental status. Hospital course as noted below. Discharged back to [facility] in stable condition on 08/28. 1. Acute encephalopathy (multifactorial) in setting of known dementia with psychosis ? Suspected multifactorial with infectious, toxic and metabolic components. ? UA with positive nitrites and leukocyte esterase on admit. Urine culture growing > 100K gram-negative rods susceptible to ceftriaxone. Continue treatment with ceftriaxone while inpatient, can de-escalate to Keflex on discharge. ? Mild persistent lactic acidosis suspected secondary to hypovolemia from dehydration on admission, improved with IV fluids. ? Medication regimen on admission of gabapentin 800 mg 3 times daily, divalproex 750 mg at night, levetiracetam 750 mg twice daily, memantine 5 mg twice daily, donepezil 5 mg at night, Geodon 40 mg twice daily, pramipexole 1.5 mg daily. Decrease gabapentin dose to 300 mg 3 times daily, memantine dose to 5 mg daily and held home pramipexole with good improvement in mental status. ? Stable for discharge back to [facility] on 08/28. Will continue medications with changes here as noted above. 2. Acute cystitis ? Treated with ceftriaxone as noted above. De-escalated to Keflex on discharge for 7-day course total, stop date 09/02. Chronic medical conditions: ? Obesity: BMI 31 on admit. Complicated hospital course, care and prognosis. ? Hypertension: Stable. Continue home losartan. ? 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 Hyperglycemia to high 200s on admission. Had good blood sugar control with Lantus 20 units at night and sliding scale insulin with meals, will continue this on discharge. Continue gabapentin at reduced dose as noted above. ? Hyperlipidemia: Continue home statin. ? Seizure disorder: Continue home divalproex and levetiracetam. Total clinical time spent by myself addressing the patient's medical issues, reviewing all the data, and collaborating with patient's care team: 35 minutes. Physical Exam Const alert, no apparent distress and average body habitus Constitutional Narrative: Elderly female, obese, alert and making appropriate eye contact but not answering all questions appropriately, otherwise with mild agitation noted but sitting up fairly comfortably in bedside chair and in no acute distress. General Appearance: cooperative and comfortable HEENT normocephalic, head/scalp atraumatic, hearing grossly normal bilaterally and nasal mucous membranes and turbinates normal Eyes PERRL, EOMs intact bilaterally and conjunctivae normal Neck full ROM Chest inspection of chest normal Resp normal respiratory effort, normal air movement, no use of accessory muscles and clear to auscultation bilaterally Cardio regular rate, regular rhythm, no murmurs and peripheral pulses 2+ throughout GI normal to inspection, nondistended, normoactive bowel sounds, soft to palpation, non-tender and non-distended Back/Spine normal ROM Extremity normal to inspection, full ROM and no pedal edema Skin no rashes or lesions noted Neuro moves all extremities and no focal motor deficits Weight / BMI Weight Weight: 85 kg Body Mass Index (BMI) 31.2 ABG / Lab / Microbiology Data 08/29/23 06:43 08/29/23 06:43 Laboratory: Laboratory Results - last 24 hr 08/28/23 11:27: POC Glucose 247 H 08/28/23 16:09: POC Glucose 188 H 08/28/23 20:20: POC Glucose 242 H 08/29/23 06:42: POC Glucose 269 H 08/29/23 06:43: WBC 6.6, RBC 4.48, Hgb 12.9, Hct 39.7, MCV 88.6, MCH 28.8, MCHC 32.5, RDW Std Deviation 42.1, RDW Coeff of Swati 13.0, Plt Count 180, MPV 9.7, Immature Gran % (Auto) 0.300, Neut % (Auto) 53.7, Lymph % (Auto) 34.5, Faulkner % (Auto) 7.4, Eos % (Auto) 3.2, Baso % (Auto) 0.9, Absolute Neuts (auto) 3.6, Absolute Lymphs (auto) 2.28, Nucleated RBC % 0, Sodium 140, Potassium 4.1, Chloride 111 H, Carbon Dioxide 19.0 L, Anion Gap 10, BUN 15, Creatinine 0.93, Estim Creat Clear Calc 58.00, Est GFR (MDRD) Af Amer 76, Est GFR (MDRD) Non-Af 63, BUN/Creatinine Ratio 16.1, Glucose 278 H, Calcium 9.7 Microbiology: Microbiology 08/26/23 12:30 Urine, Random Urine Culture - Final Raoultella planticola Meaningful Use Info Meaningful Use Meaningful Use Diagnoses (Choose all that apply): None applicable Ischemic Stroke Statin Dosing Therapy Reference: STATIN DOSE THERAPY REFERENCE: * Patients > 75 years receive moderate or high dose statin therapy. * Patients 75 years or YOUNGER should receive HIGH intensity statin dose unless contraindicated. You will be required to document reason for non-treatment if statin daily dose does not meet guidelines. HIGH DOSE STATIN THERAPY DAILY Atorvastatin > than or = to 40 mg Rosuvastatin > than or = to 20 mg Amlodipine + Atorvastatin > than or = to 2.5/40 mg Ezetimibe + Simvastatin 10/80 mg Simvastatin 80mg Discharge Plan Admission Admit Date/Time: 08/26/23 13:24 Primary Reason for Your Visit: Altered mentation, UTI Attending Provider: Clif Evans Primary Care Provider: Yared Mendoza Consulting Providers: Delfin No; Miller Dunbar Discharge Orders/Prescriptions Prescriptions: New gabapentin 300 mg Capsule 300 mg PO TIDCM Qty: 0 0RF insulin lispro [Humalog KwikPen Insulin] 100 unit/mL Insulin Pen See Protocol subcut ACHS Qty: 0 0RF Protocol: 4. Sliding Scale Insulin High-Med Dosing Condition: 150-199 mg/dl = 2 units Condition: 200-259 mg/dl = 4 units Condition: 260-324 mg/dl = 6 units Condition: 325-374 mg/dl = 8 units Condition: 375-409 mg/dl = 10 units Condition: 410-449 mg/dl = 11 units Condition: Greater than 449 call physician Protocol Text: - Use for Total Daily Dose of Insulin 56-80 units - Patient who are insulin resistant or septic HIGH MEDIUM DOSING ALGORITHM memantine 5 mg Tablet 5 mg PO DAILY Qty: 0 0RF insulin glargine-yfgn 100 unit/mL (3 mL) Insulin Pen 20 unit subcut QHS Qty: 0 0RF Continued levetiracetam 750 MG tablet 750 mg PO BID losartan 100 MG tablet 100 mg PO DAILY montelukast 10 MG tablet 10 mg PO QHS atorvastatin 10 MG tablet 10 mg PO QHS acetaminophen 500 mg Tablet 500 mg PO Q4H PRN (Reason: PAIN/FEVER) bisacodyl 10 mg suppository 10 mg SC DAILY PRN (Reason: constipation) mineral oil [Fleet Mineral Oil] Enema 118 ml SC DAILY PRN (Reason: constipation) glucagon HCl [Glucagon (HCl) Emergency Kit] 1 mg recon soln 1 mg subcut Q20M PRN (Reason: hypoglycemia) Rx Instructions: until target blood sugar attained dextrose [Glucose Gel] 40 % gel 10 g PO Q15M PRN (Reason: hypoglycemia) Rx Instructions: until symptoms of low blood sugar are controlled magnesium hydroxide [Milk of Magnesia] 400 mg/5 mL suspension 30 ml PO DAILY PRN (Reason: constipation) Rx Instructions: ADMINISTER ONCE DAILY IF NO BM IN 3 DAYS nystatin 100,000 unit/gram powder 1 applic topical Q6H PRN (Reason: skin irritation) polyethylene glycol 3350 [Miralax] 17 gram/dose powder 17 g PO DAILY pramipexole 1.5 mg tablet 1.5 mg PO DAILY ziprasidone HCl 40 mg capsule 40 mg PO BID donepezil 5 mg tablet 5 mg PO QHS divalproex 250 mg tablet,delayed release (DR/EC) 250 mg PO QHS divalproex 500 mg tablet,delayed release (DR/EC) 500 mg PO QHS Discontinued gabapentin 800 MG tablet 800 mg PO TIDCM insulin lispro 100 unit/mL insulin pen See Protocol subcut .COMPLEX Protocol: 6. Sliding Scale Insulin Custom Condition: mg/dl range Dose/Route: Number of Units Condition: 0-100 Dose/Route: 0 Condition: 101-150 Dose/Route: 2 Condition: 151-200 Dose/Route: 4 Condition: 201-250 Dose/Route: 6 Condition: 251-300 Dose/Route: 8 Condition: 301-350 Dose/Route: 10 Condition: 351-400 Dose/Route: 12 Condition: 401+ Dose/Route: CALL MD Protocol Text: Custom Sliding Scale Rx Instructions: subcutaneously; TID CM AND HS memantine 5 mg tablet 5 mg PO BID Referrals / Follow Up: Yared Mendoza MD [Primary Care Provider] - Disposition Disposition (needs filled in before D/C Order can be placed): Care Home Acute Care Charges/Coding Visit Charges Inpatient E&M: 16531 Disch Hosp >30min
[2023-08-29 11:39] LABS: Bedside Glucose 198 mg/dL (74-106)
--- NOTE | 2023-08-29 11:53 | PHA.DC.MR.R ---
Pharmacy [place] Med Reconciliation Pharmacy Service has performed discharge medication reconciliation for this patient upon transfer to [facility]. The patient's discharge medication list was reviewed for discrepancies and discrepancies were resolved. Medications at Discharge Home Medications levetiracetam 750 mg tablet 750 mg PO BID seizures 04/29/17 losartan 100 mg tablet 100 mg PO DAILY blood pressure 04/29/17 montelukast 10 mg tablet 10 mg PO QHS 06/20/18 atorvastatin 10 mg tablet 10 mg PO QHS 08/22/19 acetaminophen 500 mg tablet 500 mg PO Q4H PRN PAIN/FEVER 01/15/21 bisacodyl 10 mg rectal suppository 10 mg [place] DAILY PRN constipation 07/18/23 dextrose 40 % oral gel (Glucose Gel) 10 g PO Q15M PRN hypoglycemia 07/18/23 glucagon HCl 1 mg solution for injection (Glucagon (HCl) Emergency Kit) 1 mg subcut Q20M PRN hypoglycemia 07/18/23 magnesium hydroxide 400 mg/5 mL oral suspension (Milk of Magnesia) 30 ml PO DAILY PRN constipation 07/18/23 mineral oil (Fleet Mineral Oil enema) 118 ml [place] DAILY PRN constipation 07/18/23 nystatin 100,000 unit/gram topical powder 1 applic topical Q6H PRN skin irritation 07/18/23 polyethylene glycol 3350 17 gram/dose oral powder (Miralax) 17 g PO DAILY 07/18/23 pramipexole 1.5 mg tablet 1.5 mg PO DAILY 07/18/23 ziprasidone HCl 40 mg capsule 40 mg PO BID 07/18/23 divalproex 250 mg tablet,delayed release 250 mg PO QHS 08/26/23 divalproex 500 mg tablet,delayed release 500 mg PO QHS bipolar 08/26/23 donepezil 5 mg tablet 5 mg PO QHS 08/26/23 gabapentin 300 mg capsule 300 mg PO TIDCM #0 caps 08/29/23 insulin glargine-yfgn 100 unit/mL (3 mL) subcutaneous pen 20 unit (0.2 mL) subcut QHS #0 mL 08/29/23 insulin lispro 100 unit/mL subcutaneous pen (Humalog KwikPen (U-100) Insulin) See Protocol subcut ACHS #0 mL 08/29/23 memantine 5 mg tablet 5 mg PO DAILY #0 tabs 08/29/23
--- NOTE | 2023-08-29 12:38 | CASEMGMT ---
Social Work- Pt is medically ready for d/c. Pt will return to [place] under intermediate level of care. DCA notified pt is ready for discharge. JOSEFINA Martinez
--- NOTE | 2023-08-29 13:12 | CASEMGMT ---
Discharge Planning Discharge orders, signed med list, and transport time sent to [facility] via [facility]. Physicians will transport patient by cot at 4p. Nursing and SW updated. Nursing will update patient. Marisol Chau DC Planning Asst.
== END 2023-08-29 14:20 | DRG 689 ==
LOC: ED 12:37 → MS3 14:26
PROVIDERS: Internal Medicine; Physician Assistant; Admitting Provider Hospitalist; Emergency Provider Emergency Medicine; PCP Family Medicine; Visit Provider Hospitalist
DX: N30.00 Acute cystitis without hematuria (principal); G93.41 Metabolic encephalopathy; G92.8 Other toxic encephalopathy; F02.811 Dementia in other diseases classified elsewhere, unspecified severity, with agitation; E87.20 Acidosis, unspecified; E10.21 Type 1 diabetes mellitus with diabetic nephropathy; G40.909 Epilepsy, unspecified, not intractable, without status epilepticus; E10.40 Type 1 diabetes mellitus with diabetic neuropathy, unspecified; E10.65 Type 1 diabetes mellitus with hyperglycemia; G30.9 Alzheimer's disease, unspecified; Z79.4 Long term (current) use of insulin; I10 Essential (primary) hypertension; E78.00 Pure hypercholesterolemia, unspecified; E86.1 Hypovolemia; E86.0 Dehydration; E66.9 Obesity, unspecified; Z79.899 Other long term (current) drug therapy; Z68.31 Body mass index [BMI] 31.0-31.9, adult
CPT/HCPCS: 36415; 70450; 71045; 80048; 80076; 80164; 81001; 82962; 83605; 85025; 87077; 87086; 87088; 87186; 99284; J7030; J7050; A4216